=== PATIENT | female | born 1930 | race Caucasian/White ===

== ENCOUNTER → 2016-09-30 12:13 | Emergency (ER) | payer BC, MEDICARE ==
[~2016-09-30 12:13] MED LIST: PPD test dose* 5 TU/0.1 ML TEST (*USE PPD ORDER SET*) ONE
== END | disposition home or self-care (01) ==
LOC: OHEAST 12:13
DX: Z11.1 Encounter for screening for respiratory tuberculosis (principal)

== ENCOUNTER 2017-03-03 14:49 | Emergency (ER) | payer MEDICARE, BC ==
[2017-03-03] MEDS ORDERED: Azithromycin TAB* 250 MG PO ONE (16:59)
--- NOTE | 2017-03-03 17:02 | RAD ---
Indication: Cough, rhonchi. 2 views of the chest including dual energy PA views demonstrates no mediastinal shift. Heart is of normal size and configuration. Lung clemens demonstrate no pleural fluid, pneumonia or pneumothorax. When compared to previous exam of February 03, 2012 no significant change is noted. IMPRESSION: Cardiomegaly. Pectus excavatum deformity. No pneumonia is noted.
[2017-03-03] MEDS ORDERED: predniSONE TAB* 20 MG PO ONE (17:11)
[2017-03-03] MEDS ORDERED: guaiFENesin LIQ* 100 MG/5 ML UDC PO ONE (17:19)
[2017-03-03 17:21] VITALS: BP 162/78
--- NOTE | 2017-03-03 17:47 | UC ---
Ren Farrell Natalie, scribed for Washington Barrera MD on 03/03/17 at 1745 . Respiratory Complaint HPI - HPI Summary HPI Summary: The pt is an 87 y/o F presenting to c/o nonproductive cough starting intermittently three days ago. The pt states, I never know when Im going to cough throughout the day and night. When she isnt coughing, she feels slightly better, but still lethargic as if she has URI. The pain is rated 6/10. Pt additionally c/o SOB, small ear ache, nasal drainage. Pt denies fever, nasal congestion, and increased lower extremity edema. She doesnt have hx of asthma. - History of Current Complaint Chief Complaint: UCRespiratory Stated Complaint: COUGH Time Seen by Provider: 03/03/17 15:52 Hx Obtained From: Patient Onset/Duration: Lasting Days - starting three days ago, Still Present Timing: Intermittent Episodes Severity Initially: Moderate Severity Currently: Moderate Pain Intensity: 6 Pain Scale Used: 0-10 Numeric Character: Cough: Nonproductive Aggravating Factors: Nothing Alleviating Factors: Nothing Associated Signs And Symptoms: Negative: Fever, Nasal Congestion - Allergies/Home Medications Allergies/Adverse Reactions: Allergies Allergy/AdvReac Type Severity Reaction Status Date / Time Penicillins [PCN] AdvReac Mild Itching Verified 03/03/17 15:12 Home Medications: Home Medications Fluoxetine HCl [Prozac] 03/03/17 [History] PMH/Surg Hx/FS Hx/Imm Hx Cardiovascular History: Hypertension Other History Of: Negative For: Anticoagulant Therapy - Surgical History Surgical History: Yes Surgery Procedure, Year, and Place: hernia repair, tonsillectomy, mastectomy - Family History Known Family History: Positive: Hypertension Negative: Cardiac Disease, Diabetes - Social History Alcohol Use: None Substance Use Type: None Smoking Status (MU): Never Smoked Tobacco Review of Systems Constitutional: Fatigue, Other - NEGATIVE: fever ENT: Ear Ache, Nasal Discharge, Other - NEGATIVE: nasal congestion Respiratory: Shortness Of Breath Musculoskeletal: Other: - NEGATIVE: increased LE edema All Other Systems Reviewed And Are Negative: Yes Physical Exam Triage Information Reviewed: Yes Appearance: Well-Appearing, No Pain Distress Vital Signs: Initial Vital Signs Temp 97.8 F 03/03/17 15:12 Pulse 76 03/03/17 15:12 Resp 16 03/03/17 15:12 BP 158/83 03/03/17 15:12 Pulse Ox 96 03/03/17 15:12 Vital Signs Reviewed: Yes Eye Exam: Normal ENT: Positive: Normal ENT inspection Neck: Positive: Supple, Nontender Respiratory: Positive: Other: - breath sounds present, rhonchi bilaterally Cardiovascular: Positive: RRR Abdomen Description: Positive: Nontender, Soft Bowel Sounds: Positive: Present Musculoskeletal Exam: Normal Musculoskeletal: Positive: Strength Intact, ROM Intact Neurological: Positive: Other: - normal, sensory/motor intact, A&O x3 Psychological: Positive: Other: - affect/mood appropriate Diagnostic Evaluation - Laboratory O2 Sat by Pulse Oximetry: 96 - Radiology Xray Interpretation: No Acute Changes - Cardiomegaly. Pectus excavatum deformity. No pneumonia is noted. physician has reviewed this report. Radiology Interpretation Completed By: Radiologist Respiratory Course/Dx - Course Course Of Treatment: BP noted and advised to follow up with PCP. Medications reviewed. Allergies noted. WE DISCUSSED GETTING FURTHER EVAL IN ED. PATIENT DECLINES, WISHES TO BE TREATED OUT PATIENT; WILL GO TO ED IF WORSE. - Differential Dx/Diagnosis Provider Diagnoses: BRONCHITS. COUGH Discharge - Discharge Plan Condition: Stable Disposition: HOME Prescriptions: Azithromycin TAB* [Zithromax TAB (Z-FARHAT) 250 mg #6 tabs] 250 mg PO DAILY #4 tab Benzonatate CAP* [Tessalon 100 MG CAP*] 100 mg PO TID PRN #15 cap PRN Reason: Cough Guaifenesin 200 mg PO Q4H PRN #120 ml PRN Reason: Cough Patient Education Materials: Guaifenesin (By mouth), Acute Bronchitis (ED) Referrals: Froylan Barriga PA [Primary Care Provider] - Additional Instructions: FOLLOW UP WITH YOUR DOCTOR. GO TO THE EMERGENCY DEPARTMENT FOR ANY WORSENING OF YOUR CONDITION OR QUESTIONS OR CONCERNS. The documentation as recorded by the Ren chen Natalie accurately reflects the service I personally performed and the decisions made by me, Washington Barrera MD.
== END 2017-03-03 17:41 | disposition home or self-care (01) ==
LOC: UCEAST 14:49
DX: J40 Bronchitis, not specified as acute or chronic (principal); I10 Essential (primary) hypertension
CPT/HCPCS: 71046; 99212; A9270-GY; G0463; J7512

== ENCOUNTER 2017-07-02 12:56 | Emergency (ER) | payer MEDICARE, BC ==
[2017-07-02 14:31] VITALS: BP 157/77
--- NOTE | 2017-07-02 15:01 | RAD ---
HISTORY: Left knee injury COMPARISONS: None VIEWS: 4, Frontal, lateral, axial, and oblique views of the left knee FINDINGS: BONE DENSITY: There is diffuse osteopenia. BONES: There is no displaced fracture. 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 There is no suprapatellar joint effusion or lipohemarthrosis. ALIGNMENT: There is no dislocation. SOFT TISSUES: Unremarkable. OTHER FINDINGS: None. IMPRESSION: 1. OSTEOPENIA. 2. OSTEOARTHRITIS. 3. NO ACUTE OSSEOUS INJURY. IF SYMPTOMS PERSIST, RECOMMEND REPEAT IMAGING
--- NOTE | 2017-07-02 17:25 | UC ---
Lower Extremity/Ankle HPI - HPI Summary HPI Summary: Patient is an 87-year-old female presenting to the with chief complaint of left knee pain. She states she does a recumbent bike 3 times weekly and has for years without any pain. She states her [place] snf recently increased this to 4 times weekly and her left knee began to hurt. She endorses some left knee swelling which radiates down into the left lower extremity and ankle. She has been taking Aleve twice daily for the past 4-5 days which improves her symptoms. She is not used to compression hose, ice. She denies any other pain or symptoms. Denies any nausea or tingling. Denies any ecchymosis. - History of Current Complaint Chief Complaint: UCLowerExtremity Stated Complaint: LEFT KNEE INJURY Time Seen by Provider: 07/02/17 14:58 Hx Obtained From: Patient ?: No Onset/Duration: Sudden Onset Severity Initially: Mild Severity Currently: Mild Pain Intensity: 0 Pain Scale Used: 0-10 Numeric Aggravating Factor(s): Standing, Ambulation Alleviating Factor(s): Rest, Elevation Able to Bear Weight: Yes - Risk Factors Gout Risk Factors: Age Over 40 Septic Arthritis Risk Factor: Negative - Allergies/Home Medications Allergies/Adverse Reactions: Allergies Allergy/AdvReac Type Severity Reaction Status Date / Time Penicillins Allergy Itching Verified 07/02/17 14:20 PMH/Surg Hx/FS Hx/Imm Hx Previously Healthy: Yes Other History Of: Negative For: Anticoagulant Therapy - Surgical History Surgical History: Yes Surgery Procedure, Year, and Place: hernia repair, tonsillectomy, mastectomy - Family History Known Family History: Positive: Hypertension Negative: Cardiac Disease, Diabetes - Social History Occupation: Unemployed Lives: [facility] Alcohol Use: None Substance Use Type: None Smoking Status (MU): Never Smoked Tobacco Review of Systems Constitutional: Negative Skin: Negative Respiratory: Negative Cardiovascular: Negative Motor: Decreased ROM Neurovascular: Negative Musculoskeletal: Arthralgia - knee pain Neurological: Negative Psychological: Negative Is Patient Immunocompromised?: No All Other Systems Reviewed And Are Negative: Yes Physical Exam Triage Information Reviewed: Yes Appearance: Well-Appearing, No Pain Distress, Well-Nourished Vital Signs: Initial Vital Signs Temp 98.8 F 07/02/17 14:22 Pulse 63 07/02/17 14:22 Resp 18 07/02/17 14:22 BP 157/77 07/02/17 14:22 Pulse Ox 96 07/02/17 14:22 Vital Signs Reviewed: Yes Eye Exam: Normal Eyes: Positive: Conjunctiva Clear Neck exam: Normal Neck: Positive: Supple, No Lymphadenopathy Respiratory Exam: Normal Respiratory: Positive: Chest non-tender, Lungs clear Musculoskeletal: Positive: ROM Limited @ - left knee pain Neurological Exam: Normal Neurological: Positive: Alert Psychological: Positive: Normal Response To Family Skin Exam: Normal Lower Extremity Course/Dx - Course Course Of Treatment: Patient is evaluated for left knee pain. Left knee appears slightly swollen on physical exam area there is also swelling into the ipsilateral foot, she states which has significantly improved since yesterday. X-ray obtained of the knee which shows osteoarthritis with no other additional findings. I have encouraged her to take Aleve twice daily, ice to the area and apply compression hose. She will follow-up with her PCP and her orthopedic surgeon at [facility] for further management and possible PT. She is okay with this plan at discharge. - Differential Dx/Diagnosis Provider Diagnoses: Left knee Pain Discharge - Sign-Out/Discharge Documenting (check all that apply): Discharge/Admit/Transfer - Discharge Plan Condition: Stable Disposition: HOME Patient Education Materials: Knee Pain (ED), Swollen Joint (ED) Referrals: Froylan Barriga PA [Primary Care Provider] - Additional Instructions: Please follow up with orthopedics/PCP to assess if you need physical therapy Do not use the knee for any exercises at this time until the knee begins to feel better However, continue to move about the knee gently to prevent stiffening Compression hose may help with swelling Aleve twice daily Ice to the knee may help with discomfort - Billing Disposition and Condition Condition: STABLE Disposition: HOME
== END 2017-07-02 16:14 | disposition home or self-care (01) ==
LOC: UCEAST 12:56
DX: M25.562 Pain in left knee (principal); Z88.0 Allergy status to penicillin; M25.462 Effusion, left knee; M79.89 Other specified soft tissue disorders
CPT/HCPCS: 99211; G0463

== ENCOUNTER 2018-01-12 06:37 | Observation (INO) | payer MEDICARE, BC ==
--- NOTE | 2018-01-07 22:48 | HP ---
[facility] HISTORY AND PHYSICAL: DATE OF ADMISSION: 01/12/18 ATTENDING SURGEON: Dr. Ari Howard.* (DICTATED BY SURENDRA WHITAKER) CHIEF COMPLAINT: Appendiceal neoplasm. HISTORY OF PRESENT ILLNESS: This is an 87-year-old female, who is a poor historian, and reports "not feeling herself" since June of this year. She specifically has complaints of lower abdominal pain that she states is ongoing and does not seem to be related to eating or defecation. She denies any nausea , vomiting, anorexia, or weight loss. She did have a prior history of constipation for which she was taking MiraLAX. However, in the last 6 to 8 months, she has noted more problems with incontinence and significant production of mucus in her stools. She is mostly incontinent in the sense that when she feels that she might just be passing gas that she is actually passing some loose or mucousy stool. She denies blood per rectum. She underwent initial ultrasound of the pelvis through her PCP office. This showed a tubular structure in the midline that was not related to the adnexa. A noncontrast CT followed, which was done on 12/09/17, showing what appeared to possibly be a mucocele of the appendix versus a mucinous neoplasm. Dr. Howard had presented her case at tumor board. Also, of concern, on the 12/09/17 CT, was thickening of the omentum as well as the duodenum. Recommendation was made for repeat CT with IV and oral contrast and consideration for EGD and/or colonoscopy with GI. The patient's symptoms have remained much the same. She did undergo a repeat CT on 12/29/17 with IV and oral contrast. Though the report does not indicate so, Dr. 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 The prior concerns regarding the duodenum and omentum were no longer present on the most recent CT. Dr. Howard has met with the patient on 12/23/17 and again on 01/03/18. He has outlined for her the recommendations including the indications for surgery, the risks, benefits, and alternatives. He had noted on exam that she has a small umbilical hernia. The patient is in agreement to proceed as scheduled with laparoscopic appendectomy with repair of umbilical hernia. PAST MEDICAL HISTORY: Obstructive sleep apnea (on CPAP), depression, obesity, fibromyalgia (resolved). PAST SURGICAL HISTORY: She is status post right mastectomy in 1999 for breast cancer, which was also treated with postoperative chemotherapy and with no history of recurrence. Other previous surgeries include tonsillectomy remotely and a right inguinal hernia repair as a child. CURRENT MEDICATIONS: 1. Fluoxetine 10 mg once daily. 2. Fluticasone nasal spray p.r.n. for allergies (not currently using). 3. Azelastine nasal spray p.r.n. for allergies (not currently using). DRUG ALLERGIES: PENICILLIN (itching). FAMILY HISTORY: Negative for colorectal cancer, anesthesia problems, bleeding or clotting disorders. SOCIAL HISTORY: The patient is . She lives at [facility], which is assisted living. She is accompanied by a friend today, who does help her with medical appointments, etc., as the patient is very forgetful. The patient denies use of tobacco, drinks alcohol rarely and denies any other recreational drug use. REVIEW OF SYSTEMS: General: No recent constitutional symptoms or acute illnesses other than described above. The patient's weight has remained stable. HEENT: She does note some decreased visual acuity in recent years. No other problems reported. Cardiovascular: No chest pain, palpitations, history of heart murmur, or hypertension. Respiratory: No history of asthma, chronic cough, or shortness of breath. GI: As above per HPI. She has undergone colonoscopy in the past, but she cannot recall when the last study was done. She believes it was normal. : No problems reported. She apparently has a pessary in place at least by CT report. Endocrine: No diabetes or thyroid dysfunction. She is obese. Neuro/Psych: She is treated for depression, though feels unsure whether she should be taking the current fluoxetine. She is fairly forgetful. PHYSICAL EXAMINATION GENERAL: Well-nourished, obese female, in no acute distress. VITAL SIGNS: Height 63 inches, weight 197 pounds. Blood pressure 136/82, pulse 74, respirations 16. HEENT: Pupils are equal, round, and reactive. EOMs intact. No conjunctival pallor. Oropharynx: Teeth in fair repair with some missing teeth. NECK: No lymphadenopathy, thyromegaly, or masses. LUNGS: Clear to auscultation. No rales or wheezes. HEART: Regular rate and rhythm. No murmur noted. BREASTS: Not examined, though right chest wall was briefly examined with no evidence of recurrent disease. ABDOMEN: Obese, soft. Mild tenderness particularly in the lower abdomen, but no masses or guarding. Well-healed right inguinal scar from prior herniorrhaphy. GENITALIA: Otherwise not done. RECTAL: Otherwise not done. BACK: No spinous process or CVA tenderness. EXTREMITIES: 1 to 2+ nonpitting edema. NEUROLOGICAL: Grossly intact other than poor historian and frequent memory lapses. SKIN: Warm and dry. No suspicious rashes or lesions noted. IMPRESSION: Appendiceal neoplasm; umbilical hernia. PLAN: Laparoscopic appendectomy with repair of umbilical hernia. SURENDRA WHITAKER [id number]/[facility] #: [id number] [facility]
[~2018-01-12 06:37] MED LIST changes: +Buffered Lidocaine 0.9% SYRIN* 5 ML/SYR SYRINGE INTRADERM ONE; +Dexamethasone IV* 4 MG/ML 1 ML (4 MG) IV SLOW PU ONE; +Famotidine IV* 10 MG/ML 2 ML (20 mg) IV ONE; -PPD test dose* 5 TU/0.1 ML TEST (*USE PPD ORDER SET*) ONE
[2018-01-12] MEDS ORDERED: Heparin VIAL(*) 5000 UNITS/ML VIAL (FIVE THOUSAND) ONE (06:59)
[2018-01-12] MEDS ORDERED: Famotidine IV* 10 MG/ML 2 ML (20 mg) ONE (06:59)
[2018-01-12] MEDS ORDERED: Clindamycin 900 MG/D5W BAG(*) 900 MG/50 ML BAG IVPB ONE (06:59)
[2018-01-12] MEDS ORDERED: Dexamethasone IV* 4 MG/ML 1 ML (4 MG) ONE (06:59)
[2018-01-12] MEDS ORDERED: Gentamicin ADULT (*) 250 MG in NS 0.9% 100 ML* 100 ML IVPB ONE (07:00)
[2018-01-12] MEDS ORDERED: Rocuronium* 10 MG/ML VIAL ONE (07:05)
[2018-01-12] MEDS ORDERED: Propofol* 10 MG/ML 20 ML BTL ONE (07:05)
[2018-01-12] MEDS ORDERED: Lidocaine 2% PF * 5 ML VIAL ONE (07:05)
[2018-01-12] MEDS ORDERED: fentaNYL* 50 MCG/ML 2 ML VIAL (100 MCG VIAL) ONE ×5 (07:05→11:40)
[2018-01-12] MEDS ORDERED: Bupivacaine 0.25% EPI 200,000* 30 ML SDV ONE (07:13)
[2018-01-12] MEDS ORDERED: Ketorolac INJ* 30 MG/ML 1 ML VIAL IV PRN (07:25)
[2018-01-12] MEDS ORDERED: oxyCODONE/Acetamin 5/325 MG* TAB PO PRN (07:25)
[2018-01-12] MEDS ORDERED: DiMENhydriNATE IV* 50 MG/ML VIAL IV PUSH PRN (07:25)
[2018-01-12] MEDS ORDERED: Naloxone* 0.4 MG/ML 1 ML VIAL IV PRN (07:25)
[2018-01-12] MEDS ORDERED: HYDROcodone/ACETAMIN 5-325 MG* 1 TAB PO PRN ×2 (07:25→11:11)
[2018-01-12] MEDS ORDERED: EPHEDrine (Pressors)* 50 MG/ML VIAL ONE (07:52)
[2018-01-12] MEDS ORDERED: Ondansetron INJ* 2 MG/ML VIAL ONE (10:14)
[2018-01-12] MEDS ORDERED: Glycopyrrolate IV* 0.2 MG/ML 1 ML VIAL ONE (10:17)
[2018-01-12] MEDS ORDERED: Neostigmine Methylsulfate* 2 MG/2 ML SYRINGE ONE (10:17)
--- NOTE | 2018-01-12 10:49 | OP ---
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
[2018-01-12] MEDS ORDERED: Acetaminophen TAB* 325 MG PO PRN (11:10)
[2018-01-12] MEDS ORDERED: Morphine VIAL* 4 MG/ML VIAL (1 ml vial) IV PRN (11:12)
[2018-01-12] MEDS ORDERED: Ketorolac INJ* 30 MG/ML 1 ML VIAL ONE (11:14)
[2018-01-12] MEDS: fentaNYL* 50 MCG/ML 2 ML VIAL (100 MCG VIAL) IV PRN ×4 (11:16→11:38)
[2018-01-12] MEDS ORDERED: oxyCODONE/Acetamin 5/325 MG* TAB ONE (11:29)
[2018-01-12] MEDS ORDERED: DiMENhydriNATE IV* 50 MG/ML VIAL ONE (12:34)
--- NOTE | 2018-01-13 09:10 | OP ---
CC: [facility]; Dr. Bailon at [facility] OPERATIVE REPORT: DATE OF OPERATION: 01/12/18 DATE OF : 32 SURGEON: Ari Howard MD. ASSISTANTS: JAMESON Narayan and SURENDRA León. ANESTHESIOLOGIST: Dr. Nunez. ANESTHESIA: General. PRE-OP DIAGNOSES: Appendiceal neoplasm and umbilical hernia. POST-OP DIAGNOSES: Appendiceal neoplasm and umbilical hernia. OPERATIVE PROCEDURE: Diagnostic laparoscopy, mini laparotomy, and appendectomy with en bloc resectio n of a portion of small bowel and sigmoid colon, and primary umbilical hernia repair. FLUIDS: 1900 cc of crystalloid fluid given. ESTIMATED BLOOD LOSS: Less than 100 cc. SPECIMEN: Appendix with en bloc portion of small bowel and sigmoid colon. SUTURE KERN: Staple line at the small bowel. DRAINS: A #10 NIMESH drain. DESCRIPTION OF PROCEDURE: The patient was identified in the preoperative area. She was brought to [facility] operating room, placed on the operating room table in supine position. Preoperative antibiotics we re given. Sequential devices were placed on bilateral lower extremities. General anesthesia was ind uced. The patient's abdomen was prepped and draped in the standard surgical fashion and a time-out w as performed. An umbilical incision was made. This was deepened down to the anterior fascia and right to the area of the umbilical area. We entered into the abdomen through this hernia and placed a 12-mm trocar. L aparoscope was inserted through this and there was no evidence . Additional trocars were then placed in the following position, a 5 mm in the suprapubic area and 5 mm in the left lower quadrant. Table was positioned to Trendelenburg. We identified the cecum and identified the normal appearing b ase of appendix extending towards a tip of appendix with bulbous tip. This would adhere to multiple structures including small bowel, approximately the mid ileum and also to sigmoid colon both proximal ly and distally and also to right fimbria. With sharp and blunt dissection, we were able to free off the ovary and fimbria from the right off the lesion. We took care not to handle the tip of the appe ndix during this case. We took additional adhesions to the retroperitoneum and we were able to draw the appendix more superiorly from its area in the deep pelvis. I was also then able to sharply free it off the distal sigmoid at approximately the rectosigmoid area. This was mostly through pericoloni c fat that was cauterized as needed. At this point, we were able to pull the appendix up towards the midline. It was, as I said, attached to the small bowel and the sigmoid colon. I could not find a plane in this, but felt more confident handling this externally. Review of the abdomen showed normal appearing liver. There were omental studdings or scarring almost . A frozen section was taken off the omentum using LigaSure device, we sent it down to pathology who commented that it appeared to be just chronic inflammation. No other lesions were identified and ne xt, we placed a #10 NIMESH drain into the abdomen and brought it out through the left lateral most port s ite. The base of the appendix was stapled with a 45 mm [place] JAZMÍN stapling device after making a window at this and taking the mesentery of the appendix with a LigaSure device. This then allowed the appe ndix, which was now only connected to the sigmoid colon and small bowel to be manipulated around the abdomen and at this point, we increased the lower abdominal incision in a transverse fashion and inci sed the fascia and entered into the abdomen through all the layers. We then brought out the specimen and reviewed the lesion itself. The tip of the appendix appeared soft. It is not clear if this was a perforated appendix, it was just chronic inflammation or if this had been something else. It was attached to the adjacent structures as described without ability to make a plane at this area. I fel t it more prudent to resect the portion of small bowel since this patient's symptoms were not specifi payton appendicitis-type symptoms and my feeling was that this could be something else. We cleared of f some of the creeping mesentery from the small bowel and we were able to place a 45-mm [place] JAZMÍN stapl ing device across the small bowel in a transverse fashion taking care not to narrow the lumen. A may k suture was placed at this to sebas it. Next, we did a similar resection staple line on the sigmoid colon after clearing up some of the niall-mesenteric fat as it also came up toward the area of where t he appendix and sigmoid colon intimately were connected. My feeling is that these appeared more like fistula on examination and for this reason, I resected these 2 structures. Once this staple line th rough the sigmoid colon was placed, we were able to pass the specimen off. It was opened up on the b ack table. Lumen of the appendix appeared somewhat normal. It was mostly obliterated in the proxima l portion and there appeared to be possible fistula openings within the mucosa extending towards the surface of the appendix. It was then placed in formalin and sent down for pathology. We then irrigat ed the staple lines, dunked the corners of the staple lines with 3-0 silk sutures. Review of both th e colon and the small bowel appeared that their lumens were wide open and that they did not show any evidence of ischemia at the staple lines. These were dropped back into the abdomen. Next, the anter ior fascia was reapproximated with interrupted 0 Vicryl sutures in a [id number] fashion. I then irrigated the wound and reapproximated it with the skin rayna. It should be noted that I did ensu re the position of the NIMESH drain prior to closure of this lower transverse incision. Attention was then turned towards the umbilicus. The trocar was removed at this site. We dissected down on to the umbilical hernia, which once it was cleared off and the fascial edges cleared, we reap proximated with interrupted 0 Prolene sutures. The hernia itself was approximately a 1.5 cm defect. The umbilical skin was tacked down with 2-0 Vicryl suture and skin rayna were placed at this site as well. A 3-0 Prolene suture was placed at the left lower quadrant port site to keep the NIMESH drain i n place. The patient tolerated the procedure well. Sterile dressing was applied and she was transfe rred to the PACU in stable condition. [id number]/[facility] #: [id number]
[2018-01-13 09:48] VITALS: BP 122/53
== END 2018-01-13 12:00 | disposition home or self-care (01) ==
LOC: OR 06:37 → SSU 11:12
PROVIDERS: ADMIT Surgery; ATTEND Surgery
DX: D37.3 Neoplasm of uncertain behavior of appendix (principal); K42.9 Umbilical hernia without obstruction or gangrene; E66.9 Obesity, unspecified; G47.33 Obstructive sleep apnea (adult) (pediatric); Z85.3 Personal history of malignant neoplasm of breast; Z88.0 Allergy status to penicillin
CPT/HCPCS: 88305; 88331; 88332; 96374; 96375; 96376; A9270-GY; G0378; G8978-GP-CI; G8979-GP-CI; G8980-GP-CI; J1100; J1240; J1580; J1644; J1885; J2405; J2704; J3010

== ENCOUNTER 2018-06-22 06:07 | Inpatient (IN) | payer MEDICARE, BC ==
--- NOTE | 2018-06-17 16:15 | HP ---
CONTINUATION ADDENDUM NOW INCLUDED ON THIS REPORT CC: Dr. Pita Bailon * PREOPERATIVE HISTORY AND PHYSICAL: DATE OF ADMISSION/SURGERY: 06/22/18 This patient is scheduled for same-day surgery with possible overnight extension by Dr. Howard on 06/22/18. DATE OF PREOPERATIVE HISTORY AND PHYSICAL EXAMINATION: 06/17/18. ATTENDING SURGEON: Dr. Ari Howard * (dictated by Pita Narayan, JAMESON). CHIEF COMPLAINT: Lower abdominal bulge. HISTORY OF PRESENT ILLNESS: The patient is an 88-year-old female who [facility] to [facility] for evaluation by Dr. Howard for swelling at the lower abdomen. The patient is known to Dr. Howard from 01/12/18 when she underwent diagnostic laparoscopy, mini laparotomy with appendectomy with en bloc resection of portion of small bowel and sigmoid colon, and primary umbilical hernia repair. She noticed a bulge in the lower abdomen. She saw Dr. Howard in our office on 05/30/18 with concerns that the bulge was getting bigger. Today, she denies any significant abdominal pain, she states that she is having regular bowel movements and has not seen any blood in the stool and she denies any painful urination. Her main complaint is that she feels less mobile because of the bulge. She also describes having a bulge between her vagina and anus, and Dr. Howard examined that area and could not appreciate the bulge that the patient described. CONTINUATION ADDENDUM: HISTORY OF PRESENT ILLNESS: The patient describes having a bulge between her vagina and anus and when Dr. Howard examined her, he could not appreciate the bulge that the patient described. Dr. Howard has recommended open ventral hernia repair with mesh as a same-day surgery procedure, he described the nature of the surgical procedure, the rationale for the procedure, the relevant risks and benefits, and the use of mesh; today, I reviewed the expected postoperative care and recovery with the patient and her friend that accompanied her to the visit; they have had a chance to ask questions and stated that they understand the information and are satisfied with the answers given to their questions. The patient will sign surgical consent on the day of surgery. PAST MEDICAL HISTORY: Significant for right breast cancer in 1999, followed by right mastectomy and chemotherapy, she has no history of recurrence; obstructive sleep apnea, on CPAP; depression; obesity; headaches related to sinusitis; and fibromyalgia. PAST SURGICAL HISTORY: Diagnostic laparoscopy with mini laparotomy and appendectomy with en bloc resection of portion of the small bowel and sigmoid colon and primary umbilical hernia repair by Dr. Howard, 01/12/18; right mastectomy in 1999 for breast cancer; tonsillectomy; and right inguinal hernia repair in childhood. CURRENT MEDICATIONS: 1. Atorvastatin 20 mg p.o. daily. 2. Fluoxetine 10 mg p.o. daily. 3. Fluticasone nasal spray p.r.n. 4. MiraLAX 17 g every other day. ALLERGIES: PENICILLIN causes itching. FAMILY HISTORY: Negative for anesthesia problems, bleeding tendencies, or clotting disorders. Mother with a history of breast cancer. Father with a history of heart disease and hypertension. SOCIAL HISTORY: She is and lives at [facility], which is assisted living. She is accompanied by a friend today, who helps her with medical appointments, etc., as the patient is very forgetful. The patient denies use of tobacco, rarely drinks alcohol and denies any other substance use. REVIEW OF SYSTEMS: Constitutional: No fevers or chills. Endocrine: No diabetes or thyroid disease. Hematologic: No easy bruising or bleeding. No history of blood transfusions. Respiratory: No history of asthma. No chronic cough or shortness of breath. Cardiovascular: No chest pain or palpitations. No history of heart murmur or myocardial infarction. Gastrointestinal: No nausea or vomiting. Her stools vacillate between diarrhea and constipation, which is relieved with MiraLAX. No blood in the stool. Genitourinary: No painful urination. She does wear an undergarment. She has had a pessary in place in the past. Musculoskeletal: She has pitting edema of the lower extremities. No skin ulcerations. She uses a cane for ambulation and balance. Neurologic: No current headache or blurred vision. No areas of focal weakness or numbness. PHYSICAL EXAMINATION GENERAL SURVEY: The patient is an 88-year-old obese female, in no acute distress. VITAL SIGNS: Height 63 inches, weight 195 pounds, body mass index 34.5. Blood pressure 144/84, pulse 76 and regular, respiratory rate 16, temperature 99.2 tympanic. HEENT: Benign. NECK: Supple. No cervical lymphadenopathy. LUNGS: Breath sounds bilaterally clear and equal. HEART: Regular rate and rhythm. No murmurs or rubs appreciated. ABDOMEN: Obese, soft. Obvious ventral hernia in the lower abdomen that is reducible when she is supine. No overlying skin changes after it is reduced. Well- healed surgical scars. No other obvious masses, but exam is limited by body habitus. PELVIC EXAM: Deferred. RECTAL EXAM: Deferred. EXTREMITIES: With 2+ pitting edema bilaterally. No skin ulcerations. NEUROLOGIC: Alert and oriented x3. She walks with a support of a cane and her gait is fairly steady. SKIN: Warm, dry, intact. IMPRESSION: Incisional ventral hernia. PLAN: Same-day surgery admission to Dr. Howard's service on 06/22/18 , for open ventral hernia repair with mesh. MILA NARAYAN, ANIMAL SERVICES OFFICER [id number]/[facility] #: [id number] [id number]/[facility] #: [id number] YOMI
--- NOTE | 2018-06-17 16:32 | HP ---
CC: Dr. Howard; Dr. Pita Bailon PREOPERATIVE HISTORY AND PHYSICAL: ADDENDUM: HISTORY OF PRESENT ILLNESS: The patient describes having a bulge between her vagina and anus and when Dr. Howard examined her, he could not appreciate the bulge that the patient described. Dr. Howard has recommended open ventral hernia repair with mesh as a same-day surgery procedure, he described the nature of the surgical procedure, the rationale for the procedure, the relevant risks and benefits, and the use of mesh; today, I reviewed the expected postoperative care and recovery with the patient and her friend that accompanied her to the visit; they have had a chance to ask questions and stated that they understand the information and are satisfied with the answers given to their questions. The patient will sign surgical consent on the day of surgery. PAST MEDICAL HISTORY: Significant for right breast cancer in 1999, followed by right mastectomy and chemotherapy, she has no history of recurrence; obstructive sleep apnea, on CPAP; depression; obesity; headaches related to sinusitis; and fibromyalgia. PAST SURGICAL HISTORY: Diagnostic laparoscopy with mini laparotomy and appendectomy with en bloc resection of portion of the small bowel and sigmoid colon and primary umbilical hernia repair by Dr. Howard, 01/12/18; right mastectomy in 1999 for breast cancer; tonsillectomy; and right inguinal hernia repair in childhood. CURRENT MEDICATIONS: 1. Atorvastatin 20 mg p.o. daily. 2. Fluoxetine 10 mg p.o. daily. 3. Fluticasone nasal spray p.r.n. 4. MiraLAX 17 g every other day. ALLERGIES: PENICILLIN causes itching. FAMILY HISTORY: Negative for anesthesia problems, bleeding tendencies, or clotting disorders. Mother with a history of breast cancer. Father with a history of heart disease and hypertension. SOCIAL HISTORY: She is and lives at [facility], which is assisted living. She is accompanied by a friend today, who helps her with medical appointments, etc., as the patient is very forgetful. The patient denies use of tobacco, rarely drinks alcohol and denies any other substance use. REVIEW OF SYSTEMS: Constitutional: No fevers or chills. Endocrine: No diabetes or thyroid disease. Hematologic: No easy bruising or bleeding. No history of blood transfusions. Respiratory: No history of asthma. No chronic cough or shortness of breath. Cardiovascular: No chest pain or palpitations. No history of heart murmur or myocardial infarction. Gastrointestinal: No nausea or vomiting. Her stools vacillate between diarrhea and constipation, which is relieved with MiraLAX. No blood in the stool. Genitourinary: No painful urination. She does wear an undergarment. She has had a pessary in place in the past. Musculoskeletal: She has pitting edema of the lower extremities. No skin ulcerations. She uses a cane for ambulation and balance. Neurologic: No current headache or blurred vision. No areas of focal weakness or numbness. PHYSICAL EXAMINATION GENERAL SURVEY: The patient is an 88-year-old obese female, in no acute distress. VITAL SIGNS: Height 63 inches, weight 195 pounds, body mass index 34.5. Blood pressure 144/84, pulse 76 and regular, respiratory rate 16, temperature 99.2 tympanic. HEENT: Benign. NECK: Supple. No cervical lymphadenopathy. LUNGS: Breath sounds bilaterally clear and equal. HEART: Regular rate and rhythm. No murmurs or rubs appreciated. ABDOMEN: Obese, soft. Obvious ventral hernia in the lower abdomen that is reducible when she is supine. No overlying skin changes after it is reduced. Well- healed surgical scars. No other obvious masses, but exam is limited by body habitus. PELVIC EXAM: Deferred. RECTAL EXAM: Deferred. EXTREMITIES: With 2+ pitting edema bilaterally. No skin ulcerations. NEUROLOGIC: Alert and oriented x3. She walks with a support of a cane and her gait is fairly steady. SKIN: Warm, dry, intact. IMPRESSION: Incisional ventral hernia. PLAN: Same-day surgery admission to Dr. Howard's service on 06/22/18 , for open ventral hernia repair with mesh. MILA REYES, CLEAR COAT SPRAYER [id number]/[facility] #: [id number] YOMI
[~2018-06-22 06:07] MED LIST changes: +Acetaminophen TAB* 325 MG ONE; +Acetaminophen TAB* 325 MG PO ONE; -Buffered Lidocaine 0.9% SYRIN* 5 ML/SYR SYRINGE INTRADERM ONE; +Buffered Lidocaine 1% SYRIN* 1 ML/SYRINGE INTRADERM ONE; +Clindamycin 900 MG IVPREMIX(* 900 MG/50 ML SDV IV ONE; -Dexamethasone IV* 4 MG/ML 1 ML (4 MG) IV SLOW PU ONE; -Famotidine IV* 10 MG/ML 2 ML (20 mg) IV ONE; +Heparin VIAL(*) 5000 UNITS/ML VIAL (FIVE THOUSAND) ONE; +Lactated Ringers 1000 ML Bag* 1,000 ML IV SCH
[2018-06-22] MEDS ORDERED: Lidocaine 1% INJ* 10 MG/ML 30 ML SDV ONE (06:51)
[2018-06-22] MEDS ORDERED: Bupivacaine 0.25% EPI 200,000* 30 ML SDV ONE (06:51)
[2018-06-22] MEDS ORDERED: Midazolam* 1 MG/ML 2 ML VIAL (2 MG) ONE (07:42)
[2018-06-22] MEDS ORDERED: fentaNYL* 50 MCG/ML 2 ML VIAL (100 MCG VIAL) ONE ×2 (07:42→10:25)
[2018-06-22] MEDS ORDERED: Ondansetron INJ* 2 MG/ML VIAL ONE (07:43)
[2018-06-22] MEDS ORDERED: Lidocaine 2% PF * 5 ML VIAL ONE (07:43)
[2018-06-22] MEDS ORDERED: Propofol* 10 MG/ML 20 ML BTL ONE (07:43)
[2018-06-22] MEDS ORDERED: Famotidine IV* 10 MG/ML 2 ML (20 mg) ONE (08:20)
[2018-06-22] MEDS ORDERED: Cisatracurium* 2 MG/ML MDV 5 ML ONE (08:39)
[2018-06-22] MEDS ORDERED: Succinylcholine* 20 MG/ML 10 ML VIAL ONE (08:39)
[2018-06-22] MEDS ORDERED: HYDROcodone/ACETAMIN 5-325 MG* 1 TAB PO PRN (09:07)
[2018-06-22] MEDS ORDERED: fentaNYL* 50 MCG/ML 2 ML VIAL (100 MCG VIAL) IV PRN (09:07)
[2018-06-22] MEDS ORDERED: Ondansetron INJ* 2 MG/ML VIAL IV PRN ×2 (09:07→11:46)
[2018-06-22] MEDS ORDERED: DiMENhydriNATE IV* 50 MG/ML VIAL IV PUSH PRN (09:07)
[2018-06-22] MEDS ORDERED: diPHENhydraMINE IV* 50 MG/ML 1 ml VIAL (BENADRYL) IV PRN (09:07)
[2018-06-22] MEDS ORDERED: Naloxone* 0.4 MG/ML 1 ML VIAL IV PRN (09:07)
[2018-06-22] MEDS ORDERED: Dexamethasone IV* 4 MG/ML 1 ML (4 MG) ONE (09:31)
--- NOTE | 2018-06-22 11:30 | OP ---
Operative Report - Blank - Operative Report Date of Operation: 06/22/18 Note: Brief Operative Note Preop Dx: Ventral incisional hernia Postop Dx: same Procedure: Open repair ventral incisional hernia w/ mesh Anesthesia: GET Surgeon: Anita Cook Italian Style Food: JAMESON Narayan; SURENDRA Novak; FELIZ Wallace Fluids: 1600 ml RL EBL: 50 ml Specimen: hernia sac Drains: one NIMESH Findings: dictated
[2018-06-22] MEDS ORDERED: Acetaminophen TAB* 325 MG PO PRN (11:37)
[2018-06-22] MEDS ORDERED: Polyethylene Glycol 3350* 17 GM PACKET PO PRN (11:37)
[2018-06-22] MEDS ORDERED: Morphine INJ* 2 MG/ML 1 ML SYRINGE (TWO MG - NEW SYRINGE VERSION) IV PRN ×2 (11:43)
[2018-06-22] MEDS ORDERED: HYDROcodone/ACETAMIN 5-325 MG* 1 TAB ONE (12:28)
[2018-06-22] MEDS: Lactated Ringers 1000 ML Bag* 1,000 ML IV SCH (13:17)
--- NOTE | 2018-06-22 19:59 | OP ---
CC: Dr. Pita Bailon * DATE OF OPERATION: 06/22/18 - ROOM #335 DATE OF : 32 SURGEON: Ari Howard MD. ASSISTANTS: 1. Maria Elena Narayan NP. 2. SURENDRA León. ANESTHESIOLOGIST: Dr. Sultana. ANESTHESIA: General. PRE-OP DIAGNOSIS: Incisional hernia. POST-OP DIAGNOSIS: Incisional hernia. OPERATIVE PROCEDURE: Incisional hernia repair with mesh. ESTIMATED BLOOD LOSS: 50 cc. FLUIDS: 1600 cc of lactated Ringer's given. SPECIMEN: Hernia sac. DRAINS: A #7 NIMESH drain left in the subcutaneous space. DESCRIPTION OF PROCEDURE: The patient was identified in the preoperative area. She was marked appropriately. Consent was signed. She was brought to the operating room and placed on the operating table in supine position. Preoperative antibiotics were given. Sequential devices were placed on bilateral lower extremities. General anesthesia was induced. A Vieyra catheter inserted and the patient's lower abdomen groin hair was clipped and the patient' s abdomen was then prepped and draped in standard surgical fashion and a time- out was performed. I addressed the known hernia. The initial incision was a transverse incision at the skin, but an up and down incision through the abdomen and today I made an up and down incision as well through the lower midline. This was deepened down through the subcutaneous fat until we came across the hernia sac. This was cleared off medially, laterally, and also superiorly. It was the inferior aspect that gave us a little more difficulty. We did enter into the sac and free fluid was forthcoming and at this point we were able to enter into the abdomen and see that there was normal appearing bowel without free fluid in the abdomen. The dissection was carried down along the anterior fascia on the right side towards the pubic symphysis. We entered another portion within the sac that I was concerned had been the bladder. Serous fluid was forthcoming that was thought to be possibly urine as we were very low down and my feeling was that the hernia contents may have been the bladder. As we dissected this free, I did place my finger into what we had felt was the bladder and dissected this off the subcutaneous tissue and this did turn supervisor to be an additional sac and peritoneum extending inferiorly. This was dissected free and passed off as specimen. We had already dissected a fair portion of the superior aspect of the sac. The defect was then cleared off and measured approximately 8 x 4 cm. Review of the bladder showed that we had not entered it or injured this. The inferior aspect of the defect was only 2 cm above the pubic symphysis. I thought we could close this primarily with an underlay mesh. At this point, we freed up the peritoneum from the rectus musculature on both sides and also superiorly and inferiorly to create a space that would encompass the mesh plus the retrorectus. We then closed the peritoneum with some posterior fascia with a running 0 Vicryl stitch. At some portions, we did pursestring a little bit to bring this together in a reasonable fashion. We irrigated and hemostasis was achieved and then a Bard 12 x 8 cm ventral mesh was then placed into the retrorectus space and tacked with SecureStrap throughout the pocket into the musculature and some of the anterior fascia depending on where the tack would grab to. Additional #1 Vicryl stitches were used at the 12 o'clock, 6 o'clock, 3 o'clock, and 9 o'clock position coming through the anterior fascia and picking up the ridge of the mesh. Again, the mesh was appropriately oriented with the absorbable surface posteriorly; however, this up against the closed peritoneum. Again, we irrigated, hemostasis was achieved, and then we reapproximated the anterior fascia with interrupted #1 Vicryl stitches in a [id number] fashion. A #7 NIMESH drain was then brought through a separate stab incision and the skin incision was reapproximated with skin rayna followed by sterile dressing. The patient tolerated the procedure well, was woken up and transferred to the PACU for planned admission to the hospital. [id number]/[facility] #: [id number] YOMI
[2018-06-22] MEDS: AZELASTINE 0.1% BOTH NARES SCH (21:12)
[2018-06-22] MEDS: FLUoxetine CAP* 10 MG PO SCH (21:53)
[2018-06-22] MEDS: Heparin VIAL(*) 5000 UNITS/ML VIAL (FIVE THOUSAND) SUBCUT SCH (21:54)
[2018-06-23] MEDS: Lactated Ringers 1000 ML Bag* 1,000 ML IV SCH (01:42)
[2018-06-23] MEDS: traMADol TAB* 50 MG PO PRN ×3 (01:44→16:30)
[2018-06-23] MEDS: Heparin VIAL(*) 5000 UNITS/ML VIAL (FIVE THOUSAND) SUBCUT SCH ×3 (06:11→22:09)
[2018-06-23] MEDS: AZELASTINE 0.1% BOTH NARES SCH ×2 (07:33→20:02)
[2018-06-23] MEDS: Fluticasone NASAL SPRAY 50MCG* 16 gm SPRAY BTL BOTH NARES SCH (07:33)
--- NOTE | 2018-06-23 13:16 | PN ---
Progress Note - Progress Note Date of Service: 06/23/18 Note: S: POD #1. Some confusion/forgetfulness (seems close to her baseline). Some pain when getting out of bed, but has only needed Tramadol x 1 thus far. Ambulated well. Mann po (no N/V. O: Vital Signs - 8 hr 06/23/18 06/23/18 06/23/18 07:25 08:00 09:48 Temperature 98.0 F Pulse Rate 66 Respiratory 16 18 18 Rate Blood Pressure 140/61 (mmHg) O2 Sat by Pulse 93 93 Oximetry 06/23/18 06/23/18 06/23/18 11:18 12:02 12:38 Temperature 98.0 F Pulse Rate 72 Respiratory 18 18 Rate Blood Pressure 170/65 140/60 (mmHg) O2 Sat by Pulse 98 Oximetry Intake and Output Last 24 Hours 06/21/18 06/22/18 06/23/18 06/24/18 06:59 06:59 06:59 06:59 Intake Total 3241 1264 Output Total 1600 60 Balance 1641 1204 Weight 197 lb Intake: IV Fluids 2571 584 LR 2571 584 Oral 670 680 Output: NIMESH #1 170 60 Urine 1430 Other: Estimated Void Large # Bowel Movements 0 # Voids 2 Gen: sitting up in chair, just finishing breakfast; NAD Heart: reg Lungs: clear Abd: NIMESH w/ serosang drainage; dressings dry (will change later); +BS; soft; incisional tenderness only (expected) A: s/p open repair incisional hernia w/ mesh, doing fairly well P: discussed w/ Dr. Howard; she will need help with managing her drain, which we would anticipate d/c'ing on Wednesday. She may be able to have some help from her friend as well as verbal prompts from the aides at [facility], but will need to stay until at least tomorrow until that is determined. Saline lock IV.
[2018-06-23] MEDS: FLUoxetine CAP* 10 MG PO SCH (22:09)
[2018-06-24 05:40] VITALS: BP 146/66
[2018-06-24] MEDS: Heparin VIAL(*) 5000 UNITS/ML VIAL (FIVE THOUSAND) SUBCUT SCH (06:16)
[2018-06-24] MEDS: AZELASTINE 0.1% BOTH NARES SCH (08:18)
[2018-06-24] MEDS: Fluticasone NASAL SPRAY 50MCG* 16 gm SPRAY BTL BOTH NARES SCH (08:18)
--- NOTE | 2018-06-24 09:48 | PN ---
<Rosas Wallace - Last Filed: 06/24/18 10:04> Progress Note - Progress Note Date of Service: 06/24/18 Note: S: pt has some confusion which seems to be her baseline per aide in the room with her. She has a small amount of incision site pain that increases when she moves in or out of bed. She has a heat pack on the incision site that is helping with her pain; she has not needed any tramadol so far today. She is able to stand on her own with little to no assistance. O: Selected Entries 06/23/18 06/23/18 06/24/18 07:25 20:16 04:48 Temperature 98.0 F 97.5 F 99.3 F Pulse Rate 66 70 63 Respiratory 16 20 18 Rate Blood Pressure 140/61 137/88 146/66 (mmHg) O2 Sat by Pulse 93 95 96 Oximetry Patient on Room Yes Yes Yes Air Intake & Output 06/22/18 06/23/18 06/24/18 06/25/18 06:59 06:59 06:59 06:59 Intake Total 3241 2044 Output Total 1600 1740 380 Balance 1641 304 -380 Weight 197 lb Intake: IV Fluids 2571 584 LR 2571 584 Oral 670 1460 Output: NIMESH #1 170 190 80 Urine 1430 1550 300 Other: Estimated Void Large Medium # Bowel Movements 0 0 # Voids 2 1 Exam: Gen: Sitting upright on edge of bed finishing breakfast, does not appear to be in any acute distress. Heart: She has normal S1/S2 heart sounds Lungs: clear and equal bilat without wheezes, rales, rhonchi. abd: Bandages over incision site are dry, there is tenderness over the incision site. + BS. NIMESH drain shows serosanguinous fluid. A: s/p incisional hernia repair with mesh; improving. P: Anticipate d/c this afternoon. Pt will need help from [facility] staff w/ NIMESH drain management over weekend; poss NIMESH drain removal on Tuesday 06/27 Continue to ambulate. <Az Novak - Last Filed: 06/24/18 13:09> Progress Note - Progress Note Note: Patient seen with PA student. Agree with student note, with the following clarifications: Patient is POD #2. Incision is clean and dry; no drainage on dressing; rayna intact; abd binder is riding high over her upper abd-> therefore, d/c'd. Patient will have help from her friend, Grant, who will be able to look in on her and help manage the drain ([facility] staff only able to provide verbal reminders and cues).
--- NOTE | 2018-06-24 21:06 | DS ---
CC: Dr. Bailon at [facility] * DISCHARGE SUMMARY: DATE OF ADMISSION: 06/22/18 DATE OF DISCHARGE: 06/24/18 ATTENDING SURGEON: Dr. Ari Howard.* (DICTATED BY SURENDRA WHITAKER) HOSPITAL COURSE: Please refer to admission history and physical and operative note for details. The patient was taken to the operating room on 06/22/18, at which time, she underwent open repair of a lower abdominal incisional hernia with mesh by Dr. Howard. Postoperative course was characterized by an expected amount of incisional pain and a moderate amount of serosanguineous drainage from the NIMESH drain. She has been afebrile and has had good GI function. She was kept an additional day for wound care and drain management, but was deemed stable for discharge on by Dr. Howard. She will return to [place] and has an appointment for followup with Dr. Howard on 06/27/18. Please see progress note from the same date in her electronic chart. She will resume her usual medications including Tylenol p.r.n. for pain. Instructions were given regarding wound care including NIMESH drain management. SURENDRA WHITAKER [id number]/[facility] #: [id number] [facility]
== END 2018-06-24 12:25 | DRG 355 ==
LOC: OR 06:07 → SSU 11:31
PROVIDERS: ADMIT Surgery; ATTEND Surgery
PROC: 0WUF0JZ Supplement Abdominal Wall with Synthetic Substitute, Open Approach (ICD-10-PCS; principal; 2018-06-22 08:00)
DX: K43.2 Incisional hernia without obstruction or gangrene (principal); E66.9 Obesity, unspecified; G47.33 Obstructive sleep apnea (adult) (pediatric); F32.9 Major depressive disorder, single episode, unspecified; I12.9 Hypertensive chronic kidney disease with stage 1 through stage 4 chronic kidney disease, or unspecified chronic kidney disease; J44.9 Chronic obstructive pulmonary disease, unspecified; N18.9 Chronic kidney disease, unspecified; M79.7 Fibromyalgia; R41.0 Disorientation, unspecified; Z68.34 Body mass index [BMI] 34.0-34.9, adult; Z90.49 Acquired absence of other specified parts of digestive tract; Z85.3 Personal history of malignant neoplasm of breast; Z92.21 Personal history of antineoplastic chemotherapy; Z90.11 Acquired absence of right breast and nipple; Z88.0 Allergy status to penicillin; Z80.3 Family history of malignant neoplasm of breast; Z82.49 Family history of ischemic heart disease and other diseases of the circulatory system
CPT/HCPCS: 87641; 88302; A9270-GY; C1776; C1781; J0330; J1100; J1644; J2250; J2405; J2704; J3010

== ENCOUNTER 2018-08-22 17:56 | Emergency (ER) | payer MEDICARE, BC ==
[2018-08-22 19:03] LABS: ABS Eosinophils 0.1 10^3/ul (0-0.6); ABS Lymphocytes 1.3 10^3/ul (1.0-4.8); ABS Monocytes 0.5 10^3/ul (0-0.8); ABS Neutrophils 4.8 10^3/ul (1.5-7.7); Hematocrit 35 % (35-47); Hemoglobin 11.5 g/dL (12.0-16.0); Lymphocyte % 19.7 %; Mean Corpuscular HGB Conc 33 g/dL (31-36); Mean Corpuscular Hemoglobin 32 pg (27-31); Mean Corpuscular Volume 97 fL (80-97); Mean Platelet Volume 8.9 fL (7.4-10.4); Platelet Count 210 10^3/uL (150-450); Red Blood Count 3.55 10^6 /uL (3.70-4.87); Red Cell Distribution Width 15 % (10-15); White Blood Count 6.7 10^3/uL (3.5-10.8)
[2018-08-22 19:07] LABS: INR 1.04 (0.82-1.09)
--- OUTSIDE RECORDS SUMMARY | 2018-08-22 19:17 | XMS REPORT | Continuity of Care Document ---
:1930 External Reference #:[id number] Author Name Janak, Ligia Care Team Providers Name Role Phone Pita Bailon MD Primary Care Physician Unavailable Payers Date Identification Numbers Payment Provider Subscriber Policy Number: [id number] Medicare Salud Peña PayID: [id number] [address] [place] [address] Policy Number: [id number] [facility] Salud Peña Group Number: [id number] [address] [address] Group Name: [place] [address] PayID: [id number] Problems Active Problems Provider Date Memory impairment Bethany Curry M.D. Onset: 06/18/2016 Unsteady gait Bethany Curry M.D. 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 ETOH Use Rarely consumes alcohol Tobacco Use Start: Unknown Patient has never smoked Smoking Status Reviewed: 07/28/18 Patient has never smoked Exercise Type/Frequency Exercises rarely Allergies, Adverse Reactions, Alerts Active Allergies Reaction Severity Comments Date Penicillin hands itchy 06/18/2016 Medications Active Medications SIG Qnty Indications Ordering Provider Date Fluoxetine HCL 1 po qam Venkat Jackson MD 10mg Capsules Fluticasone Propionate prn Rajni Cormier MD [place] 50mcg/Act Suspension Atorvastatin Calcium 1 po qd Venkat Jackson MD 20mg Tablets Miralax 17 gm every other Unknown [id number] Powder day mixed w/ 8 oz water/juice A & D Zinc Oxide apply daily as Unknown Cream needed Azelastine HCL (Nasal) 2 sprays each Unknown nostril once or 0.1% Solution twice a day for allergies Tramadol HCL 1 tablet by mouth Unknown 50mg Tablets every 6 hours as needed pain History Medications Clindamycin HCL 1 by mouth three times Unknown - Unknown 300mg Capsules a day Vital Signs Date Vital Result Comment 07/28/2018 10:37am Heart Rate 80 /min BP Systolic 138 mmHg BP Diastolic 82 mmHg Respiratory Rate 18 /min Body Temperature 98.3 F 07/07/2018 10:34am Heart Rate 76 /min BP Systolic Sitting 122 mmHg BP Diastolic Sitting 78 mmHg Respiratory Rate 18 /min Body Temperature 97.6 F 06/27/2018 9:30am Heart Rate 78 /min BP Systolic Sitting 142 mmHg BP Diastolic Sitting 90 mmHg Respiratory Rate 18 /min Body Temperature 98.5 F 06/17/2018 12:48pm Height 63 inches 5'3" Weight 195.00 lb Heart Rate 76 /min BP Systolic 144 mmHg BP Diastolic 84 mmHg Respiratory Rate 16 /min Body Temperature 99.2 F BMI (Body Mass Index) 34.5 kg/m2 05/30/2018 10:41am Height 63 inches 5'3" Weight 195.00 lb Heart Rate 72 /min BP Systolic Sitting 122 mmHg BP Diastolic Sitting 84 mmHg Respiratory Rate 16 /min Body Temperature 98.0 F BMI (Body Mass Index) 34.5 kg/m2 02/10/2018 4:01pm Heart Rate 72 /min Respiratory Rate 16 /min Body Temperature 98.5 F 01/20/2018 1:30pm Heart Rate 78 /min Respiratory Rate 18 /min Body Temperature 97.7 F 01/07/2018 1:35pm Height 63 inches 5'3" Weight 197.00 lb Heart Rate 74 /min BP Systolic 130 mmHg BP Diastolic 82 mmHg Respiratory Rate 16 /min Body Temperature 98.4 F BMI (Body Mass Index) 34.9 kg/m2 01/03/2018 10:44am Heart Rate 72 /min BP Systolic Sitting 136 mmHg BP Diastolic Sitting 84 mmHg Respiratory Rate 20 /min Body Temperature 97.9 F 12/23/2017 1:14pm Heart Rate 72 /min BP Systolic 130 mmHg BP Diastolic 82 mmHg Respiratory Rate 16 /min Body Temperature 98.4 F 12/16/2017 1:44pm Height 66 inches 5'6" Weight 190.00 lb Heart Rate 72 /min BP Systolic 142 mmHg BP Diastolic 84 mmHg Respiratory Rate 16 /min Body Temperature 98.8 F BMI (Body Mass Index) 30.7 kg/m2 06/18/2016 10:13am Height 66 inches 5'6" Weight 180.00 lb Heart Rate 56 /min BP Systolic Sitting 132 mmHg BP Diastolic Sitting 74 mmHg Respiratory Rate 14 /min BMI (Body Mass Index) 29.0 kg/m2 Results Test Date Facility Test Result H/L Range Note Laboratory test 06/22/2018 [facility] Surgical SEE RESULT [address] [place] [address] [phone] CBC Auto Diff 06/17/2018 [facility] White Blood 7.4 10^3/uL N 3.5-10.[address] [place] [address] [phone] Red Blood Count 3.90 10^6/uL N 3.70-4.87 Hemoglobin 12.7 g/dL N 12.0-16.0 Hematocrit 38 % N 35-47 Mean Corpuscular Volume 98 fL High 80-97 Mean Corpuscular Hemoglobin 33 pg High 27-31 Mean Corpuscular HGB Conc 33 g/dL N 31-36 Red Cell Distribution Width 14 % N 10.5-15 Platelet Count 226 10^3/uL N 150-450 Mean Platelet Volume 8.9 fL N 7.4-10.4 Abs Neutrophils 5.2 10^3/uL N 1.5-7.7 Abs Lymphocytes 1.5 10^3/uL N 1.0-4.8 Abs Monocytes 0.6 10^3/uL N 0-0.8 Abs Eosinophils 0.1 10^3/uL N 0-0.6 Abs Basophils 0.0 10^3/uL N 0-0.2 Abs Nucleated RBC 0.0 10^3/uL Granulocyte % 70.0 % Lymphocyte % 20.3 % Monocyte % 8.2 % Eosinophil % 1.1 % Basophil % 0.4 % Nucleated Red Blood Cells % 0.2 Basic Metabolic Panel 06/17/2018 [facility] Sodium 139 mmol/L N 135-[address] [place] [address] [phone] Potassium 4.7 mmol/L N 3.5-5.0 Chloride 106 mmol/L N 101-111 Co2 Carbon Dioxide 27 mmol/L N 22-32 Anion Gap 6 mmol/L N 2-11 Glucose 102 mg/dL High 70-100 Blood Urea Nitrogen 25 mg/dL High 6-24 Creatinine 0.93 mg/dL N 0.51-0.95 BUN/Creatinine Ratio 26.9 High 8-20 Calcium 10.0 mg/dL N 8.6-10.3 Egfr Non- 57.0 >60 Egfr 69.0 >60 2 Laboratory test 01/12/2018 [facility] Surgical SEE RESULT [address] [place] [address] [phone] CBC Auto Diff 01/07/2018 [facility] White Blood 6.1 10^3/uL N 3.5-[address] Count [address]8 [place] [address] [phone] Red Blood Count 3.90 10^6/uL Low 4.00-5.40 Hemoglobin 12.6 g/dL N 12.0-16.0 Hematocrit 38 % N 35-47 Mean Corpuscular Volume 98 fL High 80-97 Mean Corpuscular Hemoglobin 32 pg High 27-31 Mean Corpuscular HGB Conc 33 g/dL N 31-36 Red Cell Distribution Width 14 % N 10.5-15 Platelet Count 197 10^3/uL N 150-450 Mean Platelet Volume 9.2 fL N 7.4-10.4 Abs Neutrophils 4.1 10^3/uL N 1.5-7.7 Abs Lymphocytes 1.3 10^3/uL N 1.0-4.8 Abs Monocytes 0.5 10^3/uL N 0-0.8 Abs Eosinophils 0.1 10^3/uL N 0-0.6 Abs Basophils 0 10^3/uL N 0-0.2 Abs Nucleated RBC 0 10^3/uL Granulocyte % 68.0 % Lymphocyte % 21.2 % Monocyte % 8.2 % Eosinophil % 2.1 % Basophil % 0.5 % Nucleated Red Blood Cells % 0 Comp Metabolic Panel 01/07/2018 [facility] Sodium 140 mmol/L N 135-[address] [place] [address] [phone] Potassium 4.5 mmol/L N 3.5-5.0 Chloride 107 mmol/L N 101-111 Co2 Carbon Dioxide 29 mmol/L N 22-32 Anion Gap 4 mmol/L N 2-11 Glucose 106 mg/dL High 70-100 Blood Urea Nitrogen 26 mg/dL High 6-24 Creatinine 1.01 mg/dL High 0.51-0.95 BUN/Creatinine Ratio 25.7 High 8-20 Calcium 9.8 mg/dL N 8.6-10.3 Total Protein 6.7 g/dL N 6.4-8.9 Albumin 3.9 g/dL N 3.2-5.2 Globulin 2.8 g/dL N 2-4 Albumin/Globulin Ratio 1.4 N 1-3 Total Bilirubin 0.30 mg/dL N 0.2-1.0 Alkaline Phosphatase 50 U/L N 34-104 Alt 10 U/L N 7-52 Ast 17 U/L N 13-39 Egfr Non- 52.0 >60 Egfr 62.9 >60 4 Laboratory test 12/23/2017 [facility] Blood Urea 22 mg/dL N 6- [address] [place] [address] [phone] Creatinine 12/23/2017 [facility] Creatinine 0.90 mg/dL N 0.51- 0.[address] [place] [address] [phone] Egfr Non- 59.4 >60 Egfr 71.8 >60 5 Laboratory 12/21/2017 [facility] Carcinoembryonic 1.5 N 0.1- 5.0 6, 7 test finding [address] Antigen Cea ng/[place] [address] [phone] 1 SEE RESULT BELOW Name: SALUD PEÑA : [address]: Ari Howard MD Acct: [id number] Unit: [id number] AGE: 88 Location: [place] [address] Re06/22/18 SEX: F Status: ADM IN SPEC: [id number] ESTEFANY: 06/22/[address]: Ari Howard MD REQ: [id number] RECD: 06/22/18 STATUS: SOUT _ ORDERED: LEVEL 2 FINAL DIAGNOSIS Incisional hernia, site unspecified, herniorrhaphy: -- Hernia sac. PRE-OPERATIVE DIAGNOSIS Incisional hernia without obstruction or gangrene GROSS DESCRIPTION The specimen is received in formalin labeled, Hernia Sac, and consists of a 19.8 x 9.0 x 2.0 cm aggregate of camarillo-pink to dusky camarillo-red irregular rubbery wrinkled smooth to shaggy fibromembranous tissue fragments admixed with moderate yellow pink fat. [place] [employer] sections, one cassette. Signed by and Reported on: Sanchez Iraheta MD 1348 END OF REPORT DEPARTMENT OF PATHOLOGY, [address] [place] [address] Sanchez Iraheta M.D. Director [facility] # [id number] 2 Because ethnic data is not always readily available, this report includes an eGFR for both -Americans and non- Americans. The National Kidney Disease Education Program (NKDEP) does not endorse the use of the MDRD equation for patients that are not between the ages of 18 and 70, are , have extremes of body size, muscle mass, or nutritional status, or are non- or non-. According to the National Kidney Foundation, irrespective of diagnosis, the stage of the disease is based on the level of kidney function: Stage Description GFR(mL/min/1.73 m(2)) 1 Kidney damage with normal or decreased GFR 90 2 Kidney damage with mild decrease in GFR 60-89 3 Moderate decrease in GFR 30-59 4 Severe decrease in GFR 15-29 5 Kidney failure <15 (or dialysis) 3 SEE RESULT BELOW Name: SALUD PEÑA : [address]: Ari Howard MD Acct: [id number] Unit: [id number] AGE: 87 Location: [place] [address] Re01/12/18 Dis: 01/13/18 SEX: F Status: DIS Dulce SPEC: [id number] ESTEFANY: 01/12/[address] [facility] [address]: Ari Howard MD REQ: [id number] RECD: 01/12/18 STATUS: SOUT _ ORDERED: FS 1ST PER SPEC, FS ADD PER SPEC, LEVEL 4/2 FINAL DIAGNOSIS 1. Omentum, biopsy: -- Benign fibroadipose tissue with focal fat necrosis. -- No evidence of neoplasia or mucin deposition. 2. 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 -- Adherent loop of small intestine with chronic serositis. -- No high grade dysplasia or malignancy. -- All margins are clear. COMMENT: The findings were discussed with Dr. Howard. PATHOLOGY SURGICAL CONSULT Frozen section (FS)/Touch Prep (TP)/Gross Consult (GC) FS 1) Omentum, biopsy: a. No evidence of malignancy. (EP) b. Fat necrosis only. (EP) Findings discussed with Dr. Howard on 01/12/2018 at 0927. PRE-OPERATIVE DIAGNOSIS Benign neoplasm of appendix; 2) small bowel marked with silk suture CONTINUED ON NEXT PAGE DEPARTMENT OF PATHOLOGY, [address] [place] [address] Sanchez Iraheta M.D. Director [facility] # [id number] RUN DATE: 01/14/18 [facility] LAB LIVE PAGE 2 Patient: SALUD PEÑA [id number] (Continued) GROSS DESCRIPTION (Continued) GROSS DESCRIPTION 1. The specimen is received fresh labeled, Omental Studding, and consists of a 2.2 x 2.0 x 1.0 cm yellow pink irregular lobulated portion of adipose tissue. The specimen is serially sectioned and entirely submitted for frozen section microscopy. The frozen section residue is submitted in cassettes FSA and FSB. 2. The specimen is received in formalin labeled, Appendix with En Bloc Small Bowel (Marked Silk Suture) and Portion of Sigmoid Colon, and consists of an 8.4 cm previously disrupted appendix with moderate attached mesoappendix and additional intestinal tissue. The distal 3.8 cm of the appendix has been previously incised with exposed glistening camarillo-pink lobulated mucosal tissue. The remaining diameter averages 0.8 cm. The intact serosa is smooth to shaggy camarillo-red with a few fibromembranous adhesions. There are two adherent intestinal tissue fragments with prominent staple lines measuring 2.3 x 0.8 x 0.5 cm and 3.2 by up to 1.2 x 1.0 cm. The smaller fragment has an attached suture which designates small bowel, 5.9 cm from the proximal margin. The intact lumen measures up to 0.3 cm and contains scant hemorrhagic debris. The mucosa is glistening camarillo-pink and the wall thickness measures up to 0.3 cm. The specimen is inked as follows: proximal margin-green, small bowel margin-blue and remaining intestinal margin-black, serially sectioned from proximal to distal and operations representative sections are submitted in cassettes A through J as follows: A-mesoappendiceal margin, B-proximal margin (green), C-disrupted lumen proximal to small bowel, D-appendix to small bowel margin (blue), E and F-appendix to intestinal margin (black) and G through J-remaining disrupted specimen including distal tip in cassette J. Signed by and Reported on: Ruth Tompkins MD 01/14/18 1511 END OF REPORT DEPARTMENT OF PATHOLOGY, [address] [place] [address] Sanchez Iraheta M.D. Director [facility] # [id number] 4 Because ethnic data is not always readily available, this report includes an eGFR for both -Americans and non- Americans. The National Kidney Disease Education Program (NKDEP) does not endorse the use of the MDRD equation for patients that are not between the ages of 18 and 70, are , have extremes of body size, muscle mass, or nutritional status, or are non- or non-. According to the National Kidney Foundation, irrespective of diagnosis, the stage of the disease is based on the level of kidney function: Stage Description GFR(mL/min/1.73 m(2)) 1 Kidney damage with normal or decreased GFR 90 2 Kidney damage with mild decrease in GFR 60-89 3 Moderate decrease in GFR 30-59 4 Severe decrease in GFR 15-29 5 Kidney failure <15 (or dialysis) 5 Because ethnic data is not always readily available, this report includes an eGFR for both -Americans and non- Americans. The National Kidney Disease Education Program (NKDEP) does not endorse the use of the MDRD equation for patients that are not between the ages of 18 and 70, are , have extremes of body size, muscle mass, or nutritional status, or are non- or non-. According to the National Kidney Foundation, irrespective of diagnosis, the stage of the disease is based on the level of kidney function: Stage Description GFR(mL/min/1.73 m(2)) 1 Kidney damage with normal or decreased GFR 90 2 Kidney damage with mild decrease in GFR 60-89 3 Moderate decrease in GFR 30-59 4 Severe decrease in GFR 15-29 5 Kidney failure <15 (or dialysis) 6 [id number] Nonsmokers: < 2.9 ng/mL Some smokers may have elevated CEA, usually <5.0 ng/mL. Serum markers are not specific for malignancy, and values may vary by method. The testing method is an immunoenzymatic assay soil sampler by [employer] performed on [employer] DXI 600. Do not interpret serum CEA levels as absolute evidence of the presence or the absence of malignant disease. Use serum CEA in conjunction with information from the clinical evaluation of the patient and other diagnostic procedures. Procedures Date Code Description Status 06/22/2018 51829 Implant For Incisional/Ventral Hernia Repair Completed 06/22/2018 49328 Implant For Incisional/Ventral Hernia Repair Completed 06/22/2018 27755 Repair Hernia Incisional/Ventral Initial, Reducible Completed 06/22/2018 99307 Repair Hernia Incisional/Ventral Initial, Reducible Completed 01/12/2018 76298 Laparoscopy, Surgical, Appendectomy Completed 01/12/2018 10929 Laparoscopy, Surgical, Appendectomy Completed 02/04/2012 48653 Color Flow Doppler/Interp & Reprt Completed 02/04/2012 07979 Pulse Wave/Continuous-Interp.RPT Completed 02/04/2012 57989 ECHO Transthorasic Realtime 2D W Doppler & Color Flow Hosp Completed 02/04/2012 24772 Treadmill Interp/Report Only Completed 02/04/2012 22546 Stress Test Supervsn W/Out I/R Completed 02/04/2012 68531 EKG, Interpretation Only Completed Encounters Type Date Location Provider Dx Diagnosis Office Visit 05/30/2018 Surgical Ari Howard, K43.2 Incisional hernia 10:15a [facility] without obstruction or gangrene Office Visit 01/03/2018 [facility] Ari Howard, D12.1 Benign neoplasm of 11:00a [facility] appendix R53.83 Other fatigue Office Visit 12/23/2017 1:00p [facility] Ari Donis D12.1 Benign neoplasm [facility] MD, of appendix FACS R53.83 Other fatigue K58.0 Irritable bowel syndrome with diarrhea Office Visit 12/16/2017 1:45p [facility] Ari Donis R53.83 Other fatigue [facility] MD, FACS 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 R26.81 Unsteadiness on feet Office Visit 02/04/2012 1:10p [facility] Matthew Smith 428.1 [facility],jennifer GUILLEN M.D. [facility] 729.81 Swelling Of Limb 786.02 Orthopnea 780.53 Hypersomnia W/ Sleep Apnea Unspecified Office Visit 02/03/2012 1:10p [facility] Nicko Luna, 428.1 [facility],jennifer Tpiton [facility] 729.81 Swelling Of Limb 786.02 Orthopnea 780.53 Hypersomnia W/ Sleep Apnea Unspecified Plan of Treatment 07/28/2018 - Ari Howard MD, FACSK43.2 Incisional hernia without obstruction or gangreneFollow up:None needed
[2018-08-22 19:21] LABS: Albumin/Globulin Ratio 1.2 (1-3); C Reactive Protein 8.13 mg/L (<8.01); Calcium 9.7 mg/dL (8.6-10.3); EGFR African American 63.5 (>60); EGFR Non-African American 52.4 (>60); Globulin 3.4 g/dL (2-4); Magnesium 2.2 mg/dL (1.9-2.7); Total Bilirubin 0.4 mg/dL (0.2-1.0); Total Protein 7.4 g/dL (6.4-8.9)
[2018-08-22 20:01] LABS: TSH (Thyroid Stimulating Horm) 3.89 mcIU/mL (0.34-5.60)
[2018-08-22] MEDS ORDERED: Iodixanol* (CONTRAST) 320 MG/ML 100 ML SDV IV ONE (20:06)
[2018-08-22] MEDS ORDERED: NS 0.9% 500 ML* 500 ML IV ONE (20:54)
--- NOTE | 2018-08-22 21:08 | ED ---
HPI Chest Pain - HPI Summary HPI Summary: Patient complains of tenderness left lateral chest wall starting today. Pain is worse with movement, coughing, sneezing, deep breaths. Denies trauma, fever , cough, SOB, sore throat, N/V/D, abdominal pain, change in urine, change in BM. Patient states recent hernia repair this year but unsure of date. - History of Current Complaint Chief Complaint: EDFlankPain Time Seen by Provider: 08/22/18 18:33 Hx Obtained From: Patient Onset/Duration: Started Hours Ago Timing: Constant Initial Severity: Mild Current Severity: Mild Pain Intensity: 3 Pain Scale Used: 0-10 Numeric Chest Pain Location: Left Lateral Chest Pain Radiates: No Character: Dull/Aching Aggravating Factor(s): Movement, Deep Breaths Alleviating Factor(s): Position Associated Signs and Symptoms: Positive: Negative - Additional Pertinent History Primary Care Physician: HERVE - Allergy/Home Medications Allergies/Adverse Reactions: Allergies Allergy/AdvReac Type Severity Reaction Status Date / Time Penicillins Allergy Intermediate Itching Verified 06/22/18 06:53 PMH/Surg Hx/FS Hx/Imm Hx Endocrine/Hematology History: Reports: Other Endocrine/Hematological Disorders - "overactive pancreas" Denies: Hx Anticoagulant Therapy, Hx Diabetes, Hx Thyroid Disease Cardiovascular History: Reports: Hx Angina, Hx Hypercholesterolemia, Hx Hypertension Denies: Hx Coronary Artery Disease, Hx Myocardial Infarction, Hx Pacemaker/ ICD, Hx Valvular Heart Disease Respiratory History: Reports: Hx Sleep Apnea - CPAP Denies: Hx Asthma, Hx Chronic Obstructive Pulmonary Disease (COPD), Other Respiratory Problems/Disorders GI History: Denies: Other GI Disorders History: Reports: Hx Kidney Infection - age 20 Denies: Hx Benign Prostatic Hyperplasia, Hx Chronic Renal Failure, Hx Dialysis, Hx Kidney Stones, Hx Renal Disease Musculoskeletal History: Reports: Hx Arthritis - knees, hands, feet, left frozen shoulder, Hx Fibromyalgia Denies: Other Musculoskeletal History Sensory History: Reports: Hx Contacts or Glasses - reading glasses, Hx Vision Problem Denies: Hx Hearing Aid Opthamlomology History: Reports: Hx Contacts or Glasses - reading glasses, Hx Vision Problem Neurological History: Reports: Other Neuro Impairments/Disorders - memory lapses , confusion in the past year Denies: Hx Dementia, Hx Seizures Psychiatric History: Reports: Hx Anxiety Denies: Hx Substance Abuse - Cancer History Cancer Type, Location and Year: breast ca - right masectomy, pessary,sleep apnea Hx Chemotherapy: Yes - Surgical History Surgery Procedure, Year, and Place: hernia repair, age 6,. tonsillectomy, as a child. mastectomy right, 1990s. appendectomy and hernia, 2018 Hx Anesthesia Reactions: No Infectious Disease History: No Infectious Disease History: Denies: Hx Hepatitis, Hx Human Immunodeficiency Virus (HIV), Hx Shingles, Traveled Outside the [place] in Last 30 Days - Family History Known Family History: Positive: Hypertension Negative: Cardiac Disease, Diabetes - Social History Alcohol Use: None Alcohol Amount: social Substance Use Type: Reports: None Hx Tobacco Use: No Smoking Status (MU): Never Smoked Tobacco Review of Systems Constitutional: Negative Eyes: Negative ENT: Negative Cardiovascular: Negative Respiratory: Negative Gastrointestinal: Negative Genitourinary: Negative Musculoskeletal: Negative Skin: Negative Neurological: Negative Psychological: Normal All Other Systems Reviewed And Are Negative: Yes Physical Exam - Summary Physical Exam Summary: Tenderness over left lateral chest wall. No ecchymosis, erythema, deformity, swelling noted. Regular rate and rhythm. Lung sounds clear to auscultation bilaterally. Abdomen soft nontender. Triage Information Reviewed: Yes Vital Signs On Initial Exam: Initial Vitals Pulse BP Pulse Ox 72 166/81 96 08/22/18 18:01 08/22/18 18:01 08/22/18 18:01 Vital Signs Reviewed: Yes Appearance: Positive: Well-Appearing Skin: Positive: Warm Head/Face: Positive: Normal Head/Face Inspection Eyes: Positive: Normal Neck: Positive: Supple Respiratory/Lung Sounds: Positive: Clear to Auscultation Cardiovascular: Positive: Normal Abdomen Description: Positive: Nontender Musculoskeletal: Positive: Normal Neurological: Positive: Normal Psychiatric: Positive: Normal AVPU Assessment: Alert - [place] Coma Scale Best Eye Response: 4 - Spontaneous Best Motor Response: 6 - Obeys Commands Best Verbal Response: 5 - Oriented Coma Scale Total: 15 Diagnostics - Vital Signs Vital Signs Temp Pulse Resp BP Pulse Ox 08/22/18 20:13 98.0 F 64 22 147/73 93 08/22/18 20:01 63 18 147/73 94 08/22/18 20:00 61 21 93 08/22/18 19:32 64 21 153/74 94 08/22/18 19:01 67 19 176/82 95 08/22/18 19:00 68 25 95 08/22/18 18:31 65 20 159/74 95 08/22/18 18:15 97.5 F 69 21 166/81 94 08/22/18 18:01 72 166/81 96 - Laboratory Lab Results: Lab Results 08/22/18 08/22/18 08/22/18 Range/Units 18:52 18:52 18:52 WBC 6.7 (3.5-10.8) 10^3/uL RBC 3.55 L (3.70-4.87) 10^6 /uL Hgb 11.5 L (12.0-16.0) g/dL Hct 35 (35-47) % MCV 97 (80-97) fL MCH 32 H (27-31) pg MCHC 33 (31-36) g/dL RDW 15 (10-15) % Plt Count 210 (150-450) 10^3/uL MPV 8.9 (7.4-10.4) fL Neut % (Auto) 70.6 % Lymph % (Auto) 19.7 % Archule[place] % (Auto) 7.2 % Eos % (Auto) 2.0 % Baso % (Auto) 0.5 % Absolute Neuts (auto) 4.8 (1.5-7.7) 10^3/ul Absolute Lymphs (auto) 1.3 (1.0-4.8) 10^3/ul Absolute Monos (auto) 0.5 (0-0.8) 10^3/ul Absolute Eos (auto) 0.1 (0-0.6) 10^3/ul Absolute Basos (auto) 0.0 (0-0.2) 10^3/ul Absolute Nucleated RBC 0.0 10^3/ul Nucleated RBC % 0.0 INR (Anticoag Therapy) 1.04 (0.82-1.09) Sodium 137 (135-145) mmol/L Potassium 4.0 (3.5-5.0) mmol/L Chloride 105 (101-111) mmol/L Carbon Dioxide 25 (22-32) mmol/L Anion Gap 7 (2-11) mmol/L BUN 35 H (6-24) mg/dL Creatinine 1.00 H (0.51-0.95) mg/dL Est GFR ( Amer) 63.5 (>60) Est GFR (Non-Af Amer) 52.4 (>60) BUN/Creatinine Ratio 35.0 H (8-20) Glucose 125 H (70-100) mg/dL Lactic Acid (0.5-2.0) mmol/L Calcium 9.7 (8.6-10.3) mg/dL Magnesium 2.2 (1.9-2.7) mg/dL Total Bilirubin 0.40 (0.2-1.0) mg/dL AST 27 (13-39) U/L ALT 16 (7-52) U/L Alkaline Phosphatase 76 (34-104) U/L Troponin I (<0.04) ng/mL C-Reactive Protein 8.13 H (<8.01) mg/L Total Protein 7.4 (6.4-8.9) g/dL Albumin 4.0 (3.2-5.2) g/dL Globulin 3.4 (2-4) g/dL Albumin/Globulin Ratio 1.2 (1-3) Lipase 15 (11.0-82.0) U/L TSH 3.89 (0.34-5.60) mcIU/mL 08/22/18 08/22/18 Range/Units 18:52 18:52 WBC (3.5-10.8) 10^3/uL RBC (3.70-4.87) 10^6 /uL Hgb (12.0-16.0) g/dL Hct (35-47) % MCV (80-97) fL MCH (27-31) pg MCHC (31-36) g/dL RDW (10-15) % Plt Count (150-450) 10^3/uL MPV (7.4-10.4) fL Neut % (Auto) % Lymph % (Auto) % Archule[place] % (Auto) % Eos % (Auto) % Baso % (Auto) % Absolute Neuts (auto) (1.5-7.7) 10^3/ul Absolute Lymphs (auto) (1.0-4.8) 10^3/ul Absolute Monos (auto) (0-0.8) 10^3/ul Absolute Eos (auto) (0-0.6) 10^3/ul Absolute Basos (auto) (0-0.2) 10^3/ul Absolute Nucleated RBC 10^3/ul Nucleated RBC % INR (Anticoag Therapy) (0.82-1.09) Sodium (135-145) mmol/L Potassium (3.5-5.0) mmol/L Chloride (101-111) mmol/L Carbon Dioxide (22-32) mmol/L Anion Gap (2-11) mmol/L BUN (6-24) mg/dL Creatinine (0.51-0.95) mg/dL Est GFR ( Amer) (>60) Est GFR (Non-Af Amer) (>60) BUN/Creatinine Ratio (8-20) Glucose (70-100) mg/dL Lactic Acid 0.9 (0.5-2.0) mmol/L Calcium (8.6-10.3) mg/dL Magnesium (1.9-2.7) mg/dL Total Bilirubin (0.2-1.0) mg/dL AST (13-39) U/L ALT (7-52) U/L Alkaline Phosphatase (34-104) U/L Troponin I 0.01 (<0.04) ng/mL C-Reactive Protein (<8.01) mg/L Total Protein (6.4-8.9) g/dL Albumin (3.2-5.2) g/dL Globulin (2-4) g/dL Albumin/Globulin Ratio (1-3) Lipase (11.0-82.0) U/L TSH (0.34-5.60) mcIU/mL Result Diagrams: 08/22/18 18:52 08/22/18 18:52 Lab Statement: Any lab studies that have been ordered have been reviewed, and results considered in the medical decision making process. Chest Pain Course/Dx - Course Course Of Treatment: Patient complains of tenderness left lateral chest wall starting today. Pain is worse with movement, coughing, sneezing, deep breaths. Denies trauma, fever, cough, SOB, sore throat, N/V/D, abdominal pain, change in urine, change in BM. Patient states recent hernia repair this year but unsure of date. Vital signs within normal limits. Labs are patient baseline. EKG sinus rhythm. CT chest abdomen and pelvis positive for healing fractures in left ribs 5 and 6 laterally no acute fracture identified. Bones are diffusely demineralized. Incidental finding of subcutaneous density and fat stranding in the lower anterior abdominal wall containing a 1.4 x 3.6 and a liter low-density collection which could represent resolving hematoma, postop seroma, or abscess. Correlate with clinical findings and surgical history. Patient states history of recent hernia repair this year. Physical exam findings no mass, ecchymosis, erythema, extra warmth, deformity. Abdomen is soft nontender. No pain with palpation. Patient provided with incentive spirometry. Patient lives at [place] and has medical assistance available. - Diagnoses Provider Diagnoses: Rib fractures Discharge - Sign-Out/Discharge Documenting (check all that apply): Patient Departure Patient Received Moderate/Deep Sedation with Procedure: No - Discharge Plan Condition: Stable Disposition: HOME Prescriptions: Acetaminophen TAB* [Tylenol TAB*] 650 mg PO Q6H PRN 3 Days #24 tab PRN Reason: Pain Ibuprofen TAB* [Motrin TAB* 400 MG] 400 mg PO Q6H PRN 4 Days #12 tab PRN Reason: Pain Patient Education Materials: Chest Wall Pain (ED) Referrals: Pita Bailon MD [Primary Care Provider] - Additional Instructions: Alternate ibuprofen 400 mg with Tylenol 650 mg every 3 hours for left side rib pain over the next 3 days.. Avoid any strenuous activity that causes pain to left side ribs. Use incentive spirometry to maintain proper air exchange. Follow-up with primary care. Return to the ED for any new or worsening symptoms. Incidental finding on CT involves subcutaneous density and fat stranding in the lower anterior abdominal wall containing a 1 x 4 x 3 x 6 cm low density collection which could represent resolving hematoma, postop seroma, or abscess. - Billing Disposition and Condition Condition: STABLE Disposition: Home
[2018-08-22] MEDS ORDERED: NS 0.9% 1000 ML** 1,000 ML IV.FLUID IV ONE (21:53)
[2018-08-22] MEDS ORDERED: Acetaminophen TAB* 325 MG PO ONE (22:04)
[2018-08-22 22:34] VITALS: BP 158/72
[2018-08-22 22:55] LABS: Urine Appearance Clear; Urine Bacteria Absent (Absent); Urine Bilirubin Negative (Negative); Urine Blood 1+ (Negative); Urine Color Straw; Urine Glucose Negative (Negative); Urine Ketones Negative (Negative); Urine Nitrite Negative (Negative); Urine Protein Negative (Negative); Urine Red Blood Cell Trace(0-2/hpf) (Absent); Urine Specific Gravity 1.031 (1.010-1.030); Urine Squamous Epithelial Cell Present (Absent); Urine Urobilinogen Negative (Negative); Urine White Blood Cell Absent (Absent)
== END 2018-08-22 22:35 | disposition home or self-care (01) ==
LOC: ED 17:56
DX: R07.89 Other chest pain (principal); S22.42XD Multiple fractures of ribs, left side, subsequent encounter for fracture with routine healing; X58.XXXD Exposure to other specified factors, subsequent encounter; I10 Essential (primary) hypertension; Z88.0 Allergy status to penicillin
CPT/HCPCS: 36415; 71260; 74177; 80053; 81003; 81015; 83605; 83690; 83735; 84443; 84484; 85025; 85610; 86140; 93005; 96360; 99285; A9270-GY; Q9967

== ENCOUNTER 2018-11-03 17:48 | Emergency (ER) | payer MEDICARE, BC ==
--- OUTSIDE RECORDS SUMMARY | 2018-11-03 18:06 | XMS REPORT | Summary of Care ---
:1930 Author Organization [facility] Address [address] [place] [address] Care Team Providers Name Role Phone Pita Bailon MD Primary Care Provider Reason for Visit Reason Comments Check Up for nursing facilty Encounter Details Date Type Department Care Team Description 10/04/2018 Office Visit [facility], Rib pain on left side ( Primary Dx); Practice Pita Hanley MD Presence of intracervical pessary; [address] [place] [address] [place] [address] [phone] Allergies Active Allergy Reactions Severity Noted Date Comments Penicillin G Dermatologic Reaction 09/08/2012 Makes palms itch documented as of this encounter (statuses as of 10/04/2018) Medications Medication Sig Dispensed Refills Start Date End Date Status fluticasone (FLONASE) [place] 2 Sprays in 0 Active 50 MCG/ACT Nasal nose DAILY. Suspension azelastine (ASTELIN) [place] 1 [place] in 0 Active 137 MCG/SPRAY Nasal nose TWICE DAILY. Solution polyethylene glycol Take 17 g by 289 g 1 12/07/2017 Active (MIRALAX) Oral mouth EVERY OTHER PowderIndications: Hx DAY. Mix with 8 of constipation oz of water white petrolatum Apply 1 Appl by Topical 453 g 0 03/09/2018 Active externally Ointment route DAILY. zinc oxide (DESITIN 1 Appl by Topical 57 g 5 03/25/2018 Active RAPID RELIEF) 13 % route TWO TIMES Apply externally DAILY NEEDED CreamIndications: (perianal Perianal dermatitis irritation). fluoxetine (PROZAC) 10 Take 1 Tab by 90 Tab 3 04/19/2018 Active MG Oral Tab mouth DAILY. acetaminophen (TYLENOL) Take 2 Tabs by 120 Tab 5 09/02/2018 Active 325 MG Oral Tab mouth EVERY FOUR HOURS NEEDED (pain). documented as of this encounter (statuses as of 10/04/2018) Active Problems Problem Noted Date Mixed hyperlipidemia 03/22/2017 Nasal dryness 01/26/2013 JERRICA (obstructive sleep apnea) 09/08/2012 Overview: Patient has CPAP @ 10 cm through [place] Patient- [place] SOB (shortness of breath) 09/08/2012 documented as of this encounter (statuses as of 10/04/2018) Immunizations Name Administration Dates Next Due Influenza Vaccine High Dose 11/15/2017 documented as of this encounter Social History Tobacco Use Types Packs/Day Years Used Date Never Smoker Smokeless Tobacco: Never Used Comments: exposed to second hand smoke Alcohol Use Drinks/Week oz/Week Comments No Sex Assigned at Date Recorded Not on file Job Start Date Occupation Industry Not on file Not on file Not on file Travel History Travel Start Travel End No recent travel history available. documented as of this encounter Last Filed Vital Signs Vital Sign Reading Time Taken Comments Blood Pressure 142/82 10/04/2018 2:24 PM EDT Pulse 61 10/04/2018 2:24 PM EDT Temperature - - Respiratory Rate - - Oxygen Saturation 94% 10/04/2018 2:24 PM EDT Inhaled Oxygen Concentration - - Weight 86.6 kg (191 lb) 10/04/2018 2:24 PM EDT Height 154.9 cm (5' 1") 10/04/2018 2:24 PM EDT Body Mass Index 36.09 10/04/2018 2:24 PM EDT documented in this encounter Patient Instructions Patient InstructionsPita Bailon MD - 10/04/2018 2:20 PM EDTNo med changes made today We reviewed your laboratory tests today. Your appointment with Dr Avalos is 10/06/18. documented in this encounter Progress Notes Pita Bailon MD - 10/04/2018 2:20 PM EDT Nursing Notes: Ruth Steele LPN 10/04/2018 2:34 PM Signed Chief Complaint Patient presents with Check Up for nursing facilty Chief Complaint: Veronique Coyle is a 88-y.o. female who presents for annual paperwork adnd follow up for [place] Here with friend Grant. History of Present Illness/ROS: Here for recheck. No acute concerns today. I referred her to director of recreation therapy for pessary care last visit. She has not been seen yet. 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 She had laboratory tests done at [facility] 09/20/18: normal CMP, GFR 55, TSH 4.06. Cbc normal. She is very pale, but not anemic on laboratory tests. The only complaint is she sleeps a lot, sometimes misses meals. Pat denies depression, does not want an adjustment of her Fluoxetine. Review of Systems - General ROS: negative for - chills or fever, unexpected weight changes,weight has been stable. ENT ROS: negative for upper respiratory infection symptoms Respiratory ROS: negative for - cough or shortness of breath Cardiovascular ROS: negative for - chest pain, dyspnea on exertion, edema Gastrointestinal ROS: no abdominal pain, change in bowel habits, or black or bloody stools Genito-Urinary ROS: no dysuria Neuro: memory --has good and bad days. She loves to read and continues to do so. Psych: Denies depression Office Visit on 09/06/2018 Component Date Value Ref Range Status TSH 09/06/2018 4.52 0.47 - 4.68 uIu/ml Final WBC Count 09/06/2018 6.61 3.98 - 10.04 K/uL Final Methodology was changed 02/10/2018. Please note updated reference range and units. RBC Count 09/06/2018 3.73* 3.93 - 5.22 M/UL Final Hemoglobin 09/06/2018 11.7 11.2 - 15.7 G/DL Final Hematocrit 09/06/2018 37.2 34.1 - 44.9 % Final MCV 09/06/2018 99.7* 79.4 - 94.8 FL Final MCH 09/06/2018 31.4 25.6 - 32.2 PG Final MCHC 09/06/2018 31.5* 32.2 - 35.5 g/dL Final Platelet Count 09/06/2018 239 182 - 369 K/uL Final MPV 09/06/2018 10.8 9.4 - 12.3 FL Final RDW 09/06/2018 14.3 11.7 - 14.4 % Final Sodium 09/06/2018 136 134 - 145 mmol/L Final Potassium 09/06/2018 4.3 3.5 - 5.1 mmol/L Final Chloride 09/06/2018 101 98 - 107 mmol/L Final CO2 09/06/2018 26 22 - 30 mmol/L Final Calcium 09/06/2018 10.1 8.3 - 10.1 mg/dl Final Albumin 09/06/2018 4.3 3.5 - 5.0 g/dl Final BUN 09/06/2018 27* 7 - 17 mg/dl Final Creatinine 09/06/2018 0.9 0.7 - 1.2 mg/dl Final Glucose 09/06/2018 104* 70 - 99 mg/dl Final Total Protein 09/06/2018 8.3* 6.3 - 8.2 g/dl Final Total Bilirubin 09/06/2018 0.3 0.0 - 1.1 MG/DL Final AST 09/06/2018 47* 15 - 46 U/L Final ALT 09/06/2018 17 9 - 52 U/L Final Alkaline Phosphatase 09/06/2018 72 40 - 150 U/L Final eGFR 09/06/2018 59 See Interpretation Below ml/min/1.73ml Sq Final Estimated GFR Interpretation: Above 60ml/min/1.73m2 = Normal Renal Function 30-59 ml/min/1.73m2 = Stage 3 Chronic Kidney Disease 15-29 ml/min/1.73m2 = Stage 4 Chronic Kidney Disease Less than 15 ml/min/1.73m2 = Stage 5 Chronic Kidney Disease The GFR value is calculated using the Modification of Diet in Renal Disease ( MDRD) Study Equation which can be found at: https://www.kidney.org/content/qxyx-kjbhj-knvzcnnq BUN/Creatinine Ratio 09/06/2018 30* 6 - 22 RATIO Final Anion Gap 09/06/2018 9 3 - 11 mmol/L Final A/G Ratio 09/06/2018 1.1 0.8 - 2.0 ratio Final Past Medical History: Diagnosis Date Breast cancer (HCC) s/p chemotherapy &mastectomy Breast cancer (HCC) 2001 right mastectomy [place], [place] [facility]. Chronic kidney disease nephritis age 20 Depression Edema of both legs Essential (primary) hypertension Fibromyalgia Fibromyalgia History of PFTs 2012 mild obstruction Hyperlipidemia Hyperlipidemia JERRICA (obstructive sleep apnea) Uterine prolapse Past Surgical History: Procedure Laterality Date APPENDECTOMY 01/22/2018 cystadenoma MASTECTOMY 2006 right REPAIR INITIAL INGUINAL HERNIA, 1937-38 TONSILLECTOMY Current Outpatient Medications: acetaminophen (TYLENOL) 325 MG Oral Tab, Take 2 Tabs by mouth EVERY FOUR HOURS NEEDED (pain)., Disp: 120 Tab, Rfl: 5 azelastine (ASTELIN) 137 MCG/SPRAY Nasal Solution, [place] 1 [place] in nose TWICE DAILY., Disp:, Rfl: fluoxetine (PROZAC) 10 MG Oral Tab, Take 1 Tab by mouth DAILY., Disp: 90 Tab, Rfl: 3 fluticasone (FLONASE) 50 MCG/ACT Nasal Suspension, [place] 2 Sprays in nose DAILY., Disp: , Rfl: polyethylene glycol (MIRALAX) Oral Powder, Take 17 g by mouth EVERY OTHER DAY. Mix with 8 ozof water, Disp: 289 g, Rfl: 1 white petrolatum Apply externally Ointment, 1 Appl by Topical route DAILY., Disp: 453 g, Rfl: 0 zinc oxide (DESITIN RAPID RELIEF) 13 % Apply externally Cream, 1 Appl by Topical route TWO TIMES DAILY NEEDED (perianal irritation)., Disp: 57 g, Rfl: 5 Allergies Allergen Reactions Penicillin G Dermatologic Reaction Makes palms itch Social History Socioeconomic History Marital status: Other Spouse name: Not on file Number of children: Not on file Years of education: Not on file Highest education level: Not on file Occupational History Not on file Social Needs Financial resource strain: Not on file Food insecurity: Worry: Patient refused Inability: Patient refused Transportation needs: Medical: Patient refused Non-medical: Patient refused Tobacco Use Smoking status: Never Smoker Smokeless tobacco: Never Used Tobacco comment: exposed to second hand smoke Substance and Sexual Activity Alcohol use: No Drug use: No Sexual activity: Not Currently Partners: Male Lifestyle Physical activity: Days per week: Patient refused Minutes per session: Patient refused Stress: Not on file Relationships Social connections: Talks on phone: Patient refused Gets together: Patient refused Attends hindu service: Patient refused Active member of club or organization: Patient refused Attends meetings of clubs or organizations: Patient refused Relationship status: Patient refused Intimate partner violence: Fear of current or ex partner: Patient refused Emotionally abused: Patient refused Physically abused: Patient refused Forced sexual activity: Patient refused Other Topics Concern Back Care Not Asked Bike Helmet Not Asked Blood Transfusions Not Asked Caffeine Concern Not Asked Exercise Not Asked Hobby Hazards Not Asked International Travel Not Asked Service Not Asked Occupational Exposure Not Asked Seat Belt Not Asked Self-Exams Not Asked Sleep Concern Not Asked Special Diet Not Asked Stress Concern Not Asked Weight Concern Not Asked Social History Narrative 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 No | BMI 36.09 kg/m Physical Examination: General appearance - alert, well appearing, and in no distress Mental status - alert, oriented to person, place, and time, normal mood, behavior, speech, dress, motor activity, and thought processes Eyes - pupils equal and reactive, sclera anicteric Neck - supple, no cervical or supraclavicular adenopathy, carotids upstroke normal bilaterally, no bruits, thyroid exam: thyroid is normal in size without nodules or tenderness, no neck masses palpated. Chest/Lungs - clear to auscultation, no wheezes, rales or rhonchi, symmetric air entry, good aeration Heart - normal rate, regular rhythm, normal S1, S2, no murmurs, rubs, clicks or gallops Abdomen - soft, non tender on palpation, nondistended Neurological - alert, oriented, normal speech, no gross focal findings or movement disorder noted Extremities - dorsalis pedis pulses normal, no pedal edema, no clubbing or cyanosis ASSESSMENT/PLAN: ICD-9-CM ICD-10-CM 1. Rib pain on left side 786.50 R07.81 2. Presence of intracervical pessary V45.51 Z97.5 3. Pallor 782.61 R23.1 Rib pain is still present but improving. Xray negative last visit. Pallor is not from anemia per laboratory tests on 09/20/18 Her pessary appointment in in 2 days, Dr Avalos's office. Author: Pita Bailon MD 10/04/2018 15:15 documented in this encounter Plan of Treatment Date Type Specialty Care Team Description 01/16/2019 Office Visit Family [facility] Pita Bailon MD [address] [id number] [phone] Health Maintenance Due Date Last Done Comments MEDICARE ANNUAL WELLNESS VISIT 1930 ZOSTER IMMUNIZATION SERIES (1 1981 of 2) PNEUMOCOCCAL 65+YRS (1 of 2 - 02/03/1996 PCV13) INFLUENZA VACCINE (#1) 2018 12/01/2017, 11/15/2017, 11/03/2016 DEPRESSION SCREENING 09/07/2019 09/06/2018 FALL RISK ASSESSMENT 09/07/2019 09/06/2018, 09/06/2018 LIPID DISORDER SCREENING 03/22/2022 03/22/2017 HPV IMMUNIZATION SERIES Aged Out No longer eligible based on patient's age to complete this topic MENINGOCOCCAL VACCINE IMM Aged Out No longer eligible based on patient's age to complete this topic documented as of this encounter Goals Goal Patient Goal Associated Recent Patient-Stated? Author Type Problems Progress Depression Depression No carlos Saez (PHQ-9) Katie, total score < 5 RN Note: This is an individualized treatment (depression) goal for Veronique Coyle: Displayed above is your goal for a depression screening (PHQ-9) score that would indicate good control of your depression. Keep a regular sleep schedule Lifestyle No Katie Saez RN Note: This is an individualized lifestyle goal for Veroniquezaid Coyle: Please maintain a regular sleep schedule. This may help with some symptoms of depression. Take all prescribed medications as Self-management No Katie Saez RN directed Note: This is an individualized self-management goal for Veronique Coyle: Please take all prescribed medications as directed. 1. Do not skip doses. If you cannot afford your medications, talk with your doctor. 2. Use a pill reminder system such as a pill box if needed. Your pharmacist can help you with this. 3. Contact your Pharmacy 5 days before your medication runs out. If you cannot take your medications for any reasons, talk with your doctor. 4. Please bring all of your medication bottles and inhalers (or a list of all your medications/inhalers) with you to every visit. Potential barriers to meeting all of your care plan goals will continue to be addressed on an ongoing basis. documented as of this encounter Results Not on filedocumented in this encounter Visit Diagnoses Diagnosis Rib pain on left side - Primary Chest pain, unspecified Presence of intracervical pessary Pall[place] documented in this encounter Insurance Payer Benefit Plan / Subscriber ID Effective Dates Phone Address Type Group MEDICARE MEDICARE PART xxxxxxxxxx 1997-[facility] Medicare A & B [facility] Blue t Cross/Blue Shield Guarantor Name Account Type Relation to Date of Phone Billing Patient Address Veronique Coyle Personal/Family 1930 [phone] [address] (Home) [place] [phone] [place], [place] (Work) [id number] documented as of this encounter
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
[2018-11-03] MEDS ORDERED: Ibuprofen TAB* 400 MG PO ONE (20:23)
[2018-11-03 20:37] LABS: ABS Eosinophils 0.1 10^3/ul (0-0.6); ABS Lymphocytes 1.3 10^3/ul (1.0-4.8); ABS Monocytes 0.7 10^3/ul (0-0.8); ABS Neutrophils 5.1 10^3/ul (1.5-7.7); Eosinophil % 1.2 %; Hematocrit 35 % (35-47); Hemoglobin 11.6 g/dL (12.0-16.0); Lymphocyte % 18.3 %; Mean Corpuscular HGB Conc 33 g/dL (31-36); Mean Corpuscular Hemoglobin 32 pg (27-31); Mean Corpuscular Volume 95 fL (80-97); Mean Platelet Volume 9.1 fL (7.4-10.4); Nucleated Red Blood Cells % 0.1; Platelet Count 182 10^3/uL (150-450); Red Blood Count 3.67 10^6 /uL (3.70-4.87); Red Cell Distribution Width 15 % (10-15); White Blood Count 7.2 10^3/uL (3.5-10.8)
[2018-11-03 20:48] LABS: Albumin 3.9 g/dL (3.2-5.2); Albumin/Globulin Ratio 1.1 (1-3); BUN/Creatinine Ratio 27.5 (8-20); Calcium 10.2 mg/dL (8.6-10.3); EGFR African American 57.5 (>60); EGFR Non-African American 47.5 (>60); Globulin 3.6 g/dL (2-4); Potassium 4.1 mmol/L (3.5-5.0); Total Bilirubin 0.4 mg/dL (0.2-1.0); Total Protein 7.5 g/dL (6.4-8.9)
[2018-11-03 20:49] LABS: Troponin I 0.02 ng/mL (<0.04)
[2018-11-03] MEDS ORDERED: Ibuprofen TAB* 400 MG PO PRN (21:51)
[2018-11-03] MEDS ORDERED: Acetaminophen TAB* 325 MG PO PRN (21:51)
[2018-11-03 22:03] VITALS: BP 186/100
[2018-11-04] MEDS ORDERED: FLUoxetine CAP* 10 MG PO SCH (21:00)
[2018-11-05] MEDS ORDERED: Polyethylene Glycol 3350* 17 GM PACKET PO SCH (09:00)
== END 2018-11-03 22:02 | disposition home or self-care (01) ==
LOC: ED 17:48
DX: S22.42XD Multiple fractures of ribs, left side, subsequent encounter for fracture with routine healing (principal); V49.9XXD Car occupant (driver) (passenger) injured in unspecified traffic accident, subsequent encounter; E78.00 Pure hypercholesterolemia, unspecified; I10 Essential (primary) hypertension; F41.9 Anxiety disorder, unspecified; Z85.3 Personal history of malignant neoplasm of breast; Z90.11 Acquired absence of right breast and nipple; Z79.899 Other long term (current) drug therapy; Z88.0 Allergy status to penicillin
CPT/HCPCS: 36415; 71045; 80053; 84484; 85025; 93005; 99283; A9270-GY

== ENCOUNTER 2018-11-29 15:09 | Emergency (ER) | payer MEDICARE, BC ==
[2018-11-29 15:48] LABS: ABS Lymphocytes 1.4 10^3/ul (1.0-4.8); ABS Monocytes 0.7 10^3/ul (0-0.8); ABS Neutrophils 7.5 10^3/ul (1.5-7.7); Eosinophil % 0.4 %; Hematocrit 34 % (35-47); Hemoglobin 11.2 g/dL (12.0-16.0); Lymphocyte % 14.5 %; Mean Corpuscular HGB Conc 33 g/dL (31-36); Mean Corpuscular Hemoglobin 31 pg (27-31); Mean Corpuscular Volume 94 fL (80-97); Mean Platelet Volume 9.1 fL (7.4-10.4); Platelet Count 138 10^3/uL (150-450); Red Blood Count 3.57 10^6 /uL (3.70-4.87); Red Cell Distribution Width 15 % (10-15); White Blood Count 9.8 10^3/uL (3.5-10.8)
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
--- OUTSIDE RECORDS SUMMARY | 2018-11-29 16:09 | XMS REPORT | Summary of Care ---
:1930 Author Organization [facility] Address [address] [place] [address] Care Team Providers Name Role Phone Pita Bailon MD Primary Care Provider Reason for Referral Durable Medical Equipment (Routine) Status Reason Specialty Diagnoses / Referred By Referred To Procedures Contact Contact Pending Review Diagnoses Rib pain on left side Malaise and fatigue Pita Bailon MD [address] [place] [address] Reason for Visit Reason Comments Check Up Encounter Details Date Type Department Care Team Description 11/14/2018 Office Visit [facility] Waldo Bailon (Primary Dx); Practice Pita Hanley MD Rib pain on left side; [address] [place] [address] Malaise and fatigue; [place] [address] [place] [address] Memory problem [phone] Allergies Active Allergy Reactions Severity Noted Date Comments Penicillin G Dermatologic Reaction 09/08/2012 Makes palms itch documented as of this encounter (statuses as of 11/14/2018) Medications Medication Sig Dispensed Refills Start Date End Date Status fluticasone (FLONASE) [place] 2 Sprays in 0 Active 50 MCG/ACT Nasal nose DAILY. Suspension azelastine (ASTELIN) [place] 1 [place] in 0 Active 137 MCG/SPRAY Nasal nose [...] as of this encounter (statuses as of 11/14/2018) Active Problems Problem Noted Date Mixed hyperlipidemia 03/22/2017 Nasal dryness 01/26/2013 JERRICA (obstructive sleep apnea) 09/08/2012 Overview: [facility]) 09/08/2012 documented as of this encounter (statuses as of 11/14/2018) Immunizations Name Administration Dates Next Due Influenza [...] Sign Reading Time Taken Comments Blood Pressure 140/80 11/14/2018 2:33 PM EDT Pulse 78 11/14/2018 2:33 PM EDT Temperature 36.9 11/14/2018 2:33 PM EDT C (98.5 F) Respiratory Rate - - Oxygen Saturation 94% 11/14/2018 2:33 PM EDT Inhaled Oxygen Concentration - - Weight 86.6 kg (191 lb) 11/14/2018 2:33 PM EDT Height 154.9 cm (5' 1") 11/14/2018 2:33 PM EDT Body Mass Index 36.09 11/14/2018 2:33 PM EDT documented in this encounter Patient Instructions Patient InstructionsPita Bailon MD - 11/14/2018 2:00 PM EDTI recommend you get a hospital bed that allows you to elevate your head, get the pressure off your ribs. It may also help you get out of bed more often on your own. Take tylenol as needed for pain I ordered a urinalysis for your confusion. I will refer you to neurology for your memory concerns when/if you are ready. documented in this encounter Progress Notes Pita Bailon MD - 11/14/2018 2:00 PM EDT There are no exam notes on file for this visit. Chief Complaint: Veronique Coyle is a 88-y.o. female who presents for not feeling well Unscheduled visit, came on wrong day History of Present Illness/ROS: Here for memory issues, seemed forgetful. She says it is due to her lef ttrib pain the last 2 months. She cannot get herself out of bed she says due to pain. Staff has to come in to help her. Her bed is flat, head does not raise. Denies dysuria and unable to give us a urine sample Review of Systems - General ROS: negative for - chills or fever Psychological ROS: negative for - depression Respiratory ROS: no cough, shortness of breath, or wheezing Cardiovascular ROS: negative for - chest pain Gastrointestinal ROS: positive for - intermittent chronic abdominal pain negative for - blood in stools or change in bowel habits Musculoskeletal ROS: positive for - pain in left lower ribs Past Medical History: Diagnosis Date Breast cancer (HCC) s/p chemotherapy &mastectomy Breast cancer (HCC) 2001 right mastectomy in [place], had chemotherapy after at [facility]. 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 No | BMI36.09 kg/m Physical Examination: General appearance - alert, well appearing, and in no distress Mental status - alert, oriented to person, place, and time, normal mood, behavior, speech, dress, motor activity, and thought processes Eyes - pupils equal, sclera anicteric Ears - bilateral TM's and external ear canals normal Neck - supple, no cervical or supraclavicular [...] Abdomen - soft, non tender on palpation, nondistended, no masses or hepatosplenomegaly, bowel soundsnormal, normal to percussion, no guarding or rebound. No costervertebral angle tenderness Neurological - alert, oriented, normal speech, no gross focal findings or movement disorder noted Extremities - dorsalis pedis pulses normal, no pedal edema ASSESSMENT/PLAN: ICD-9-CM ICD-10-CM 1. Confusion 298.9 R41.0 URINALYSIS (LAB) WITH REFLEX CULTURE 2. Rib pain on left side 786.50 R07.81 [facility] BED (AMB) 3. Malaise and fatigue 780.79 R53.81 [facility] BED (AMB) R53.83 4. Memory problem 780.93 R41.3 CANCELED: REFER TO NEUROLOGY She agrees to have [facility] send out a ua when she can give a sample. Hospital bed ordered so she can raise her head She declines neurology referral at this time Patient Instructions I recommend you get a hospital bed that allows you to elevate your head, get the pressure off your ribs. It may also help you get out of bed more often on your own. Take tylenol as needed for pain I ordered a urinalysis for your confusion. I will refer you to neurology for your memory concerns when/if you are ready. Author: Pita Bailon MD 11/14/2018 19:13 documented in this encounter Plan of Treatment Date Type Specialty Care Team Description 01/16/2019 [facility] Visit [facility] Pita Bailon MD [address] [place] [address] [phone] Name Type Priority Associated Diagnoses Order Schedule URINALYSIS (LAB) WITH Lab Routine Confusion Expected: 11/14/2018 REFLEX CULTURE (Approximate), Expires: 05/13/2019 Name Type Priority Associated Diagnoses Order Schedule DME HOSPITAL BED (AMB) Referral Routine Rib pain on left side Ordered: 11/14/2018 Malaise and fatigue Health Maintenance Due Date Last Done Comments MEDICARE ANNUAL WELLNESS VISIT 1930 ZOSTER IMMUNIZATION SERIES (1 1981 of 2) PNEUMOCOCCAL 65+YRS (1 of 2 - 02/03/1996 PCV13) INFLUENZA VACCINE (#1) 2018 11/15/2017 DEPRESSION SCREENING 09/07/2019 09/06/2018 FALL RISK ASSESSMENT [...] This is an individualized lifestyle goal for Veronique Coyle: Please maintain a regular sleep schedule. This may help with some symptoms of depression. Take all prescribed medications as Self-management No Katie Saez RN directed Note: This is an individualized self-management goal for Veroniquezaid Coyle: Please take all prescribed medications as [...] filedocumented in this encounter Visit Diagnoses Diagnosis Confusion - Primary Unspecified psychosis Rib pain on left side Chest pain, unspecified Malaise and fatigue Other malaise and fatigue Memory problem Memory loss documented in this encounter Insurance Payer Benefit Plan / Subscriber ID Effective Dates Phone Address Type Group MEDICARE MEDICARE PART xxxxxxxxxx 1997-[facility] Blue t Cross/Blue Shield Guarantor Name Account Type Relation to Date of Phone Billing Patient Address Veronique Coyle Personal/Family 1930 [phone] (Home) [address] [phone] [place], [place] (Work) [address] documented as of this encounter
[2018-11-29 16:13] LABS: Troponin I 0.03 ng/mL (<0.04)
[2018-11-29 16:20] LABS: Albumin 3.7 g/dL (3.2-5.2); Albumin/Globulin Ratio 1.1 (1-3); BUN/Creatinine Ratio 23.1 (8-20); Calcium 11.1 mg/dL (8.6-10.3); EGFR African American 46.9 (>60); EGFR Non-African American 38.7 (>60); Globulin 3.4 g/dL (2-4); Potassium 3.8 mmol/L (3.5-5.0); Total Bilirubin 0.6 mg/dL (0.2-1.0); Total Protein 7.1 g/dL (6.4-8.9)
[2018-11-29 16:54] VITALS: BP 180/90
== END 2018-11-29 16:52 | disposition home or self-care (01) ==
LOC: ED 15:09
DX: R07.89 Other chest pain (principal); E78.00 Pure hypercholesterolemia, unspecified; I10 Essential (primary) hypertension; Z88.0 Allergy status to penicillin; Z85.3 Personal history of malignant neoplasm of breast
CPT/HCPCS: 36415; 71045; 80053; 84484; 85025; 99282

== ENCOUNTER 2018-12-20 13:48 | Inpatient (IN) | payer MEDICARE, BC ==
--- OUTSIDE RECORDS SUMMARY | 2018-12-20 14:05 | XMS REPORT | Summary of Care ---
:1930 Author Organization [facility] Address [address] [place] [address] Care Team Providers Name Role Phone Pita Bailon MD Primary Care Provider Reason for Visit Reason Comments ER F/U pt presents in office for ER f/u [facility] 11/30/18 R side chest wall pain Encounter Details Date Type Department Care Team Description 12/05/2018 Office Visit [facility], Malaise and fatigue ( Primary Dx); Practice Pita Hanley MD Chest wall pain; [address] Major depressive disorder with single episode, in partial remission ([facility]); [place], [place] [id number] [place] [id number] Dementia without behavioral disturbance, unspecified dementia type ([facility]) [phone] Allergies Active Allergy Reactions Severity Noted Date Comments Penicillin G Dermatologic Reaction 09/08/2012 Makes palms itch documented as of this encounter (statuses as of 12/05/2018) Medications Medication Sig Dispensed Refills Start Date End Date Status polyethylene glycol Take 17 g by 289 g 1 12/07/2017 Active (MIRALAX) Oral mouth EVERY PowderIndications: OTHER DAY. Hx of constipation Mix with 8 oz of water white petrolatum 1 Appl by 453 g 0 03/09/2018 Active Apply externally Topical Ointment route DAILY. zinc oxide (DESITIN 1 Appl by 57 g 5 03/25/2018 Active RAPID RELIEF) 13 % Topical Apply externally route TWO CreamIndications: TIMES DAILY Perianal dermatitis NEEDED (perianal irritation). acetaminophen Take 2 Tabs 120 Tab 5 09/02/2018 Active (TYLENOL) 325 MG by mouth Oral Tab EVERY FOUR HOURS NEEDED (pain). azelastine Lawai 1 1 Bottle 2 11/24/2018 Active (ASTELIN) 0.1 % Lawai in Nasal Solution nose TWICE DAILY. fluticasone [place]ai 2 1 Bottle 2 11/24/2018 Active (FLONASE) 50 Sprays in MCG/ACT Nasal nose DAILY. Suspension fluoxetine 20 MG Take 1 Tab 30 Tab 2 12/05/2018 Active Oral by mouth TabIndications: DAILY. Major depressive disorder with single episode, in partial remission (HCC) donepezil (ARICEPT) Take 1 Tab 30 Tab 1 12/05/2018 Active 5 MG Oral by mouth TabIndications: EVERY Dementia without BEDTIME. behavioral disturbance, unspecified dementia type (HCC) fluoxetine (PROZAC) Take 1 Tab 90 Tab 3 04/19/2018 Discontinued 10 MG Oral Tab by mouth 9 (Dose Adjustment) DAILY. documented as of this encounter (statuses as of 12/05/2018) Active Problems Problem Noted Date Mixed hyperlipidemia 03/22/2017 Nasal dryness 01/26/2013 JERRICA (obstructive sleep apnea) 09/08/2012 Overview: Patient has CPAP @ 10 cm through [place] Patient- [place] SOB (shortness of breath) 09/08/2012 documented as of this encounter (statuses as of 12/05/2018) Immunizations Name Administration Dates Next Due Influenza [...] Sign Reading Time Taken Comments Blood Pressure 140/68 12/05/2018 11:55 AM EDT Pulse 75 12/05/2018 11:55 AM EDT Temperature - - Respiratory Rate - - Oxygen Saturation 94% 12/05/2018 11:55 AM EDT Inhaled Oxygen Concentration - - Weight 70.3 kg (155 lb) 12/05/2018 11:55 AM EDT Height 154.9 cm (5' 1") 12/05/2018 11:55 AM EDT Body Mass Index 29.29 12/05/2018 11:55 AM EDT documented in this encounter Patient Instructions Patient InstructionsPita Bailon MD - 12/05/2018 11:20 AM Jelly did poorly on your memory exam, so appear to have some early dementia. Please start Aricept, Donepezil 5 mg in the evening. Can cause nausea, call if this is a problem. Increase Fluoxetine to 20 mg daily for depression We are checking on your neurology referral. Get out of bed, the pressure lying is hurting your ribs. documented in this encounter Progress Notes Pita Bailon MD - 12/05/2018 11:20 AM EDT Nursing Notes: Letty Recinos 12/05/2018 11:58 AM Signed Chief Complaint Patient presents with ER F/U pt presents in office for ER f/u [facility] 11/30/18 R side chest wall pain Letty Grisel Here with friend Jose. Review of the hospitalization: I am seeing for transition of care following Emergency Room/Urgent care evaluation at [facility]. The date of emergency room visit was 11/29/18 I reviewed the emergency room note, discharge instructions, and pertinent additional documentation obtained during the visit. I reconciled the medications. chest xray negative, BMP and CBC negative/normal The tests that were not available at the time of discharge were reviewed. Additional tests which are not yet available include: None Her confusion and memory lapses continue. She is not getting out of bed, missing meals, abou 2/day She has had more confusion, misses meals. [place] sent a fax last week asking if she needs a higher level of care. Yes, She needs a higher level of care. Patient Active Problem List Diagnosis JERRICA (obstructive sleep apnea) SOB (shortness of breath) Nasal dryness Mixed hyperlipidemia Past Medical History: Diagnosis Date Breast cancer (HCC) s/p chemotherapy &mastectomy Breast cancer (HCC) 2001 [place]astectomy [place], had chemotherapy after at [facility]. Chronic kidney disease nephritis age 20 Depression Edema of both legs Essential (primary) hypertension Fibromyalgia Fibromyalgia History of PFTs 2012 mild obstruction Hyperlipidemia Hyperlipidemia JERRICA (obstructive sleep apnea) Uterine prolapse Past Surgical History: Procedure Laterality Date APPENDECTOMY 01/22/2018 cystadenoma MASTECTOMY 2006 right REPAIR INITIAL INGUINAL HERNIA, 1937-38 TONSILLECTOMY Outpatient Medications as of 12/05/2018 Medication Sig Dispense Refill acetaminophen (TYLENOL) 325 MG Oral Tab Take 2 Tabs by mouth EVERY FOUR HOURS NEEDED (pain). 120 Tab 5 azelastine (ASTELIN) 0.1 % Nasal Solution Lawai 1 Lawai in nose TWICE DAILY. 1 Bottle 2 fluoxetine (PROZAC) 10 MG Oral Tab Take 1 Tab by mouth DAILY. 90 Tab 3 fluticasone (FLONASE) 50 MCG/ACT Nasal Suspension Lawai 2 Sprays in nose DAILY. 1 Bottle 2 polyethylene glycol (MIRALAX) Oral Powder Take 17 g by mouth EVERY OTHER DAY. Mix with 8 oz of water 289 g 1 white petrolatum Apply externally Ointment 1 Appl by Topical route DAILY. 453 g 0 zinc oxide (DESITIN RAPID RELIEF) 13 % Apply externally Cream 1 Appl by Topical route TWO TIMES DAILY NEEDED (perianal irritation). 57 g 5 No current facility-administered medications on file as of 12/05/2018. 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 [place] She now lives at [place] Family History Problem Relation Age of Onset Breast Cancer Mother Heart Disease Father Hypertension Father High Cholesterol Father Diabetes Paternal Grandmother No Known Problems Brother No Known Problems Son ROS Physical Examination: BP 140/68 (BP Location: Right arm, Patient Position: Sitting) | Pulse 75 | Ht 5' 1" (1.549 m) | Wt 155 lb (70.3 kg) | SpO2 94% | BMI 29.29 kg/m Physical Exam Physical Examination: General appearance - alert, well appearing, and in no distress Mental status - alert, oriented to person, place, and time, normal mood, behavior, speech, dress, motor activity, and thought processes Eyes - pupils equal, sclera anicteric Neck - supple, no cervical [...] - soft, non tender on palpation, nondistended No costervertebral angle tenderness Neurological - alert, oriented to place, not time/season, normal speech, walks with a walker, Extremities - dorsalis pedis pulses normal, no pedal edema MMSE score 11 Mini-Cog score: 0 Brain MRI 02/21/18: Impression: No evidence is seen of intra or extra axial hemorrhage, mass or vascular territory infarct. Cortical atrophy is prominent in scoliosis which can be due to small vessel ischemic disease with differential described in body of the report. No evidence of an acute infarct is seen at this time Urgency: Routine. This is a routine medical imaging report. Recommendation: No specific imaging recommendation. Lab Results Component Value Date TSH 4.52 09/06/2018 Results for VERONIQUE PEÑA ( ) as of 12/05/2018 12:55 Ref. Range 09/15/2017 15:58 Vitamin B12 Latest Ref Range: 239 - 931 pg/mL 632 Assessment/Plan: ICD-9-CM ICD-10-CM 1. Malaise and fatigue 780.79 R53.81 R53.83 2. Chest wall pain 786.52 R07.89 3. Major depressive disorder with single episode, in partial remission (HCC) 296.25 F32.4 [id number] MG Oral Tab 4. Dementia without behavioral disturbance, unspecified dementia type (HCC) 294.20 F03.90 donepezil (ARICEPT) 5 MG Oral Tab Coordination of care. - I am satisfied that appropriate referrals are in place to deal with the problems identified during the ER/Urgent care visit, and that the patient has adequate community resources and support in place. She has note heard about her neurology consult ordered last visit. We will call. She does appear to have significant dementia. Higher level of care is needed to get her up out of bed and dressed in the morning. Start Aricept for dementia. Increase fluoxetine to 20 mg daily. Keep appointment 12/17/18 for recheck I confirmed the patient's friend's understanding of the diagnosis and plan of care. The patient herself could not remember the plan. Specific education that was provided today: Patient Instructions You did poorly on your memory exam, so appear to have some early dementia. Please start Aricept, Donepezil 5 mg in the evening. Can cause nausea, call if this is a problem. Increase Fluoxetine to 20 mg daily for depression We are checking on your neurology referral. Get out of bed, the pressure lying is hurting your ribs. Author: Pita Bailon MD 12/05/2018 12:47 documented in this encounter Plan of Treatment Date Type Specialty Care Team Description 01/16/2019 Office Visit Family Practice Pita Bailon MD [address] [place] [address] [phone] Health Maintenance Due Date Last Done Comments [...] an individualized treatment (depression) goal for Veronique Peña: Displayed above is your goal for a depression screening (PHQ-9) score that would indicate good control of your depression. Keep a regular sleep schedule Lifestyle No Katie Saez RN Note: This is an individualized lifestyle goal for Veronique Peña: Please maintain a regular sleep schedule. This may help with some symptoms of depression. Take all prescribed medications as Self-management No Katie Saez RN directed Note: This is an individualized self-management goal for Veronique Peña: Please take all prescribed medications as directed. [...] filedocumented in this encounter Visit Diagnoses Diagnosis Malaise and fatigue - Primary Other malaise and fatigue Chest wall pain Painful respiration Major depressive disorder with single episode, in partial remission (HCC) Dementia without behavioral disturbance, unspecified dementia type (HCC) documented in this encounter Insurance Payer Benefit Plan / Subscriber ID Effective Dates Phone Address Type Group MEDICARE MEDICARE PART xxxxxxxxxx 1997-Presen Medicare A & B t [facility] NATIONAL xxxxxxxxxxxx 2000-[employer] Blue t Cross/Blue Shield Guarantor Name Account Type Relation to Date of Phone Billing Patient Address Veronique Peña Personal/Family 1930 [phone] [address] (Home) [employer] [phone] [place], [place] (Work) [address] documented as of this encounter
--- OUTSIDE RECORDS SUMMARY | 2018-12-20 14:05 | XMS REPORT | Continuity of Care Document ---
:1930 External Reference #:[id number] Author Name Laura Allen MD Address [address] [place] [address] Care Team Providers Name Role Phone Pita Bailon MD Care Team Information Ux Design Manager [phone] Problems Description No Information Available Social History Type Date Description Comments Sex Unknown Tobacco Use Start: Unknown Never Smoked Cigarettes ETOH Use Denies alcohol use Recreational Drug Use Denies Drug Use Exercise Type/Frequency Exercises regularly Allergies, Adverse Reactions, Alerts Description No Information Available Medications Description No Information Available Medications Administered in Office Medication SIG Qnty Indications Ordering Provider Date PT SCRN Tbco Id as Non User Laura Allen MD 12/14/2018 Injection Immunizations Description No Information Available Vital Signs Date Vital Result Comment 12/14/2018 2:36pm BP Systolic 144 mmHg BP Diastolic 72 mmHg 1 Parity 1 Results Description No Information Available Procedures Description No Information Available Medical Devices Description No Information Available Encounters Type Date Location Provider Dx Diagnosis Office Visit 12/14/2018 [facility] Office Laura Allen, N89.8 Other specified 3:00p noninflammatory disorders of vagina Assessments Date Code Description Provider 12/14/2018 N89.8 Other specified noninflammatory disorders of Laura Allen MD vagina Plan of Treatment 12/14/2018 - Laura Allen MDN89.8 Other specified noninflammatory disorders of vaginaComments:If the pt has a pessary it is very high in the vagina. In light of the fact that she has no sxms, Joe not think any further evaluation is warranted. She certainly does not need a pessary placed. Will f/u with PCP for BP management. Functional Status Description No Information Available Mental Status Description No Information Available Referrals Description No Information Available
--- NOTE | 2018-12-20 14:06 | ED ---
Altered Mental Status - HPI Summary HPI Summary: LEVEL 5 CAVEAT DUE TO INCREASED DEMENTIA AND HX DEMENTIA. This pt is an 88 y/o female presenting to [facility] via EMS from [place] for increased confusion. Pt has hx of dementia but per [facility] staff pt has been more confused lately. Staff also report that pt has not been wanting to get out of bed and is not eating well. She denies nausea. Pt has hx of left rib fractures from a fall 1 month ago. Pt's PCP called and stated pt is more than [facility] can handle. - History Of Current Complaint Stated Complaint: AMS PER EMS Hx Obtained From: Patient, EMS Timing: Lasting Days Severity Currently: Moderate Character: Confusion Aggravating Factor(s): Nothing Alleviating Factor(s): Nothing Associated Signs And Symptoms: Negative: Nausea, Fever - Allergies/Home Medications Allergies/Adverse Reactions: Allergies Allergy/AdvReac Type Severity Reaction Status Date / Time Penicillins Allergy Intermediate Itching Verified 12/20/18 14:27 Home Medications: Home Medications Acetaminophen TAB* [Tylenol TAB*] 650 mg PO BID 12/20/18 [History Confirmed 01/26] PMH/Surg Hx/FS Hx/Imm Hx Endocrine/Hematology History: Reports: Other Endocrine/Hematological Disorders - "overactive pancreas" Denies: Hx Anticoagulant Therapy, Hx Diabetes, Hx Thyroid Disease Cardiovascular History: Reports: Hx Angina, Hx Hypercholesterolemia, Hx Hypertension Denies: Hx Coronary Artery Disease, Hx Myocardial Infarction, Hx Pacemaker/ ICD, Hx Valvular Heart Disease Respiratory History: Reports: Hx Sleep Apnea - CPAP Denies: Hx Asthma, Hx Chronic Obstructive Pulmonary Disease (COPD), Other Respiratory Problems/Disorders GI History: Denies: Other GI Disorders History: Reports: Hx Kidney Infection - age 20 Denies: Hx Benign Prostatic Hyperplasia, Hx Chronic Renal Failure, Hx Dialysis, Hx Kidney Stones, Hx Renal Disease Musculoskeletal History: Reports: Hx Arthritis - knees, hands, feet, left frozen shoulder, Hx Fibromyalgia Denies: Other Musculoskeletal History Sensory History: Reports: Hx Contacts or Glasses - reading glasses, Hx Vision Problem Denies: Hx Hearing Aid Opthamlomology History: Reports: Hx Contacts or Glasses - reading glasses, Hx Vision Problem Neurological History: Reports: Other Neuro Impairments/Disorders - memory lapses , confusion in the past year Denies: Hx Dementia, Hx Seizures Psychiatric History: Reports: Hx Anxiety Denies: Hx Substance Abuse - Cancer History Cancer Type, Location and Year: breast ca - right masectomy, pessary,sleep apnea Hx Chemotherapy: Yes - Surgical History Surgical History: Yes Surgery Procedure, Year, and Place: hernia repair, age 6,. tonsillectomy, as a child. mastectomy right, 1990s. appendectomy and hernia, 2018 Hx Anesthesia Reactions: No Infectious Disease History: Denies: Hx Hepatitis, Hx Human Immunodeficiency Virus (HIV), Hx Shingles - Family History Known Family History: Positive: Hypertension Negative: Cardiac Disease, Diabetes - Social History Alcohol Use: None Alcohol Amount: social Hx Substance Use: No Substance Use Type: Reports: None Hx Tobacco Use: No Smoking Status (MU): Never Smoked Tobacco Review of Systems - ROS Summary Review of Systems Summary: ROS IS LIMITED DUE TO LEVEL 5 CAVEAT - increased confusion Constitutional: Other - POSITIVE: decreased PO intake Negative: Fever Negative: Nausea Neurological: Other - POSITIVE: increased confusion Positive: Weakness - generalized All Other Systems Reviewed And Are Negative: No Physical Exam - Summary Physical Exam Summary: Constitutional: Well-developed, Well-nourished, Alert. (-) Distressed Skin: Warm, Dry HENT: Normocephalic; Atraumatic Eyes: Conjunctiva normal, EOMI Neck: Musculoskeletal ROM normal neck. (-) JVD, (-) Stridor, (-) Tracheal deviation Cardio: Rhythm regular, rate normal, Heart sounds normal; Intact distal pulses; The pedal pulses are 2+ and symmetric. Radial pulses are 2+ and symmetric. (-) Murmur Pulmonary/Chest wall: Effort normal. (-) Respiratory distress, (-) Wheezes, (-) Rales Abd: Soft, (-) tenderness, (-) Distension, (-) Guarding, (-) Rebound Musculoskeletal: 2+ pitting edema in ankles bilaterally. Lymph: (-) Cervical adenopathy Neuro: Alert, Confused, Dysarthric, Moving all extremities x4, good sensation bilaterally, CN II-XII are intact GCS is 14. Psych: Mood and affect Normal Triage Information Reviewed: Yes Vital Signs On Initial Exam: Initial Vitals Temp Pulse Resp BP Pulse Ox 97.3 F 79 21 194/83 96 12/20/18 14:00 12/20/18 14:00 12/20/18 14:00 12/20/18 14:00 12/20/18 14:00 Vital Signs Reviewed: Yes Completion Of Physical Exam Limited Due To: Level 5 - increased confusion Procedures - Sedation Patient Received Moderate/Deep Sedation with Procedure: No Diagnostics - Laboratory Result Diagrams: 12/20/18 14:25 12/20/18 14:25 Lab Statement: Any lab studies that have been ordered have been reviewed, and results considered in the medical decision making process. - Radiology Chest X-Ray Radiology Interpretation Completed By: Radiologist Summary of Radiographic Findings: Per radiologist,. HYPERINFLATION. NO ACTIVE CARDIOPULMONARY DISEASE. ED physician has reviewed this imaging report. Altered Mental Statu Course/Dx - Course Course Of Treatment: LEVEL 5 CAVEAT DUE TO INCREASED DEMENTIA AND HX DEMENTIA. This pt is an 88 y/o female presenting to [facility] via EMS from [place] for increased confusion. Hx dementia but per [facility] staff pt has been more confused lately. Staff also report that pt has not been wanting to get out of bed and is not eating well. She denies nausea. Physical Exam reveals no abnormalities except for GCS 14, 2+ pitting edema in ankles bilaterally, confused, dysarthric. Bloodwork shows no abnormalities except for WBC 13.4 H, RBC 3.54 L, Hgb 11.1 L, Hct 33 L, RDW 16 H, INR 1.10 H, BUN 41 H, Creatinine 1.95 H, BUN/Creatinine Ratio 21.0 H, Glucose 159 H, AST 115 H, ALT 98 H, Alkaline Phosphatase 122 H, Troponin I 0.04 H, B-Natriuretic Peptide 583 H. C X -Ray reveals HYPERINFLATION. NO ACTIVE CARDIOPULMONARY DISEASE. We discussed patient care with Dr. Shepherd, hospitalist, who accepts patient for admission with diagnosis of CHF exacerbation and generalized weakness. Pt will be admitted and is agreeable with this plan. - Diagnoses Provider Diagnoses: CHF exacerbation, Generalized weakness - Provider Notifications Discussed Care Of Patient With: Isamar Shepherd - Hospitalist Time Discussed With Above Provider: 15:36 Instructed by Provider To: Admit As Inpatient Discharge ED - Sign-Out/Discharge Documenting (check all that apply): Patient Departure - admit - Discharge Plan Condition: Stable Disposition: ADMITTED TO [facility] - Billing Disposition and Condition Condition: STABLE Disposition: Admitted to [facility] - Attestation Statements Document Initiated by Scribe: Yes Documenting Scribe: Naina Huerta Provider For Whom Scribe is Documenting (Include Credential): Amelia Christine MD Scribe Attestation: I, Naina Huerta, scribed for Amelia Toscano MD on 12/20/18 at 2142. Scribe Documentation Reviewed: Yes Provider Attestation: The documentation as recorded by the scribe, Naina Huerta accurately reflects the service I personally performed and the decisions made by me, Amelia Toscano MD Status of Scribe Document: Viewed
[2018-12-20 14:45] LABS: Hematocrit 33 % (35-47); Hemoglobin 11.1 g/dL (12.0-16.0); Mean Corpuscular HGB Conc 33 g/dL (31-36); Mean Corpuscular Hemoglobin 31 pg (27-31); Mean Corpuscular Volume 94 fL (80-97); Mean Platelet Volume 8.9 fL (7.4-10.4); Platelet Count 173 10^3/uL (150-450); Red Blood Count 3.54 10^6 /uL (3.70-4.87); Red Cell Distribution Width 16 % (10-15); White Blood Count 13.4 10^3/uL (3.5-10.8)
[2018-12-20 14:55] LABS: Activated Partial Thrombo Time 31.2 seconds (26.0-38.0); INR 1.1 (0.82-1.09)
[2018-12-20 15:06] LABS: ALT 98 U/L (7-52); AST 115 U/L (13-39); Alkaline Phosphatase 122 U/L (34-104); Anion Gap 8 mmol/L (2-11); Blood Urea Nitrogen 41 mg/dL (6-24); CO2 Carbon Dioxide 32 mmol/L (22-32); Chloride 102 mmol/L (101-111); EGFR African American 29.4 (>60); EGFR Non-African American 24.3 (>60); Globulin 3.9 g/dL (2-4); Glucose 159 mg/dL (70-100); Potassium 3.6 mmol/L (3.5-5.0); Sodium 142 mmol/L (135-145); Total Protein 7.9 g/dL (6.4-8.9)
[2018-12-20 15:09] LABS: Troponin I 0.04 ng/mL (<0.04)
[2018-12-20] MEDS ORDERED: Furosemide IV* 10 MG/ML 2 ML VIAL (20 MG) IV ONE (15:34)
[2018-12-20 16:11] LABS: Calcium 15.2 mg/dL (8.6-10.3)
[2018-12-20 16:29] LABS: ABS Basophils 0.1 10^3/ul (0-0.2); ABS Lymphocytes 1.4 10^3/ul (1.0-4.8); ABS Monocytes 0.8 10^3/ul (0-0.8); ABS Neutrophils 11.1 10^3/ul (1.5-7.7); Eosinophil % 0.3 %; Lymphocyte % 10.5 %; Nucleated Red Blood Cells % 0.1
[2018-12-20] MEDS ORDERED: NS 0.9% 1000 ML** 1,000 ML IV ONE (16:44)
[2018-12-20 17:16] LABS: Magnesium 2.2 mg/dL (1.9-2.7); Phosphorus 5.1 mg/dL (2.5-5.0)
[2018-12-20 17:43] LABS: Urine Appearance Cloudy; Urine Bilirubin Negative (Negative); Urine Blood Negative (Negative); Urine Color Yellow; Urine Glucose Negative (Negative); Urine Ketones Negative (Negative); Urine Nitrite Negative (Negative); Urine Protein Negative (Negative); Urine Specific Gravity 1.014 (1.010-1.030); Urine Urobilinogen Negative (Negative)
[2018-12-20 17:48] LABS: Influenza A Molecular NEGATIVE (Negative); Influenza B Molecular NEGATIVE (Negative)
[2018-12-20] MEDS: Calcitonin (Salmon) INJ* 200 UNITS/ML 2 ML VIAL SUBCUT SCH (17:50)
[2018-12-20 17:53] LABS: Troponin I 0.04 ng/mL (<0.04)
[2018-12-20 18:02] LABS: TSH (Thyroid Stimulating Horm) 3.36 mcIU/mL (0.34-5.60)
[2018-12-20 18:15] LABS: Vitamin D Total 25(OH) 23.8 ng/mL (20-50)
[2018-12-20] MEDS: Enoxaparin(*) 30 MG/0.3 ML SYR SUBCUT SCH (19:15)
[2018-12-20] MEDS: Acetaminophen TAB* 325 MG PO PRN (19:48)
[2018-12-20 21:08] LABS: Troponin I 0.04 ng/mL (<0.04)
--- NOTE | 2018-12-20 23:26 | HP ---
CC: Dr. Bailon * HISTORY AND PHYSICAL: DATE OF ADMISSION: 12/20/18 PROVIDER: Jacquelyn Boggs NP. PRIMARY CARE PHYSICIAN: Dr. Bailon. ATTENDING PHYSICIAN WHILE IN THE HOSPITAL: Dr. Isamar Shepherd * (dictated by Jacquelyn Boggs NP). CHIEF COMPLAINT: 1. Weakness. 2. Confusion. HISTORY OF PRESENT ILLNESS: Ms. Coyle is an 88-year-old female with a past medical history significant for right breast cancer; status post mastectomy and chemotherapy, history of sleep apnea, depression, obesity, fibromyalgia, and history of headaches who presented to the emergency room with complaints of confusion and increased weakness. The patient is lethargic, resting on the stretcher in the emergency room. She does responds minimally to questions with a soft voice, yes and no answers only, and unable to stay awake during interview. History of present illness was obtained from a friend who was in the room. The friend reports that the patient has had increasing confusion and weakness over the past 2 months. She reports approximately 2 months ago, the patient was walking with a cane unassisted and was able to carry on conversations without difficulty. She does report the patient had an appointment with her doctor last week, did not know why she was at the appointment or how she got there. She also followed up with her primary care provider within the last month. She was unable to complete tasks that she would not normally be able to do. She was unable to remember words when given. She could only place half of the numbers on the clock when asked to draw a clock. The friend also reports that she was recently moved from the 4th floor to the 3rd floor due to needing more help. The patient reports that after she was moved to the 3rd floor her confusion became progressively worse. She also reports she has been incontinent of stool x1 year. Due to progressively worsening weakness and confusion, decreased appetite, the patient was sent to the emergency room for further evaluation. Friend also reports that approximately 2 months ago the patient rolled over in bed and broke her ribs, reports since then the patient has not wanted to get out bed due to the pain she has with movement. While in the emergency room, the patient had routine lab work drawn. She was found to have hypercalcemia with a calcium level of 5.2 and an ionized calcium of 1.79. Her urine was within normal limits, but due to her increased confusion , lethargy, and weakness, hospital medicine has been asked to see and evaluate her for admission. PAST MEDICAL HISTORY: 1. Significant for right breast cancer, status post mastectomy and chemo. 2. History of sleep apnea, on CPAP. 3. Depression. 4. Obesity. 5. Headache. 6. Fibromyalgia. PAST SURGICAL HISTORY: 1. Right mastectomy in 1999. 2. Small-bowel resection. 3. Umbilical hernia repair. 4. Tonsillectomy. 5. Right inguinal hernia repair, this was obtained from her old medical records. MEDICATIONS: Home medications were obtained from her home medication list. 1. Ibuprofen 400 mg p.o. q.6 hours as needed. 2. Acetaminophen 650 mg p.o. b.i.d. 3. MiraLAX 17 g p.o. every other day. 4. Fluoxetine 10 mg p.o. daily. 5. Fluticasone 2 sprays to both nares p.r.n. 6. Astepro 2 sprays to both nares p.r.n. ALLERGIES: PENICILLINS. FAMILY HISTORY: Unable to obtain family history due to the patient's altered mental status and unable to participate and answer questions. SOCIAL HISTORY: Was obtained from her friend. She denies any tobacco, alcohol , or illicit drug use. The patient currently lives at [facility]. She has been for a long time. Surrogate decision maker in the event she is unable to make her own decisions is her son who lives in [place]. Code status is unknown. We get code status from [place], no record present on the chart. Computer states DNR and friend reports that same. REVIEW OF SYSTEMS: The patient nods her head "no" when asked if she has chest pain or shortness of breath, cough. She nods her head "no" with pain with urination. Unable to complete full review of systems as the patient is unable to participate actively in answering questions. PHYSICAL EXAMINATION GENERAL: At this time, Ms. Coyle is an 88-year-old female. She is lethargic , but arouses to verbal stimuli. Resting on the stretcher in the emergency room. She does not appear to be in any acute distress. Appears frail. VITAL SIGNS: Blood pressure 148/79, heart rate 89, respirations are 22, O2 saturation 93%, temperature is 97.5. HEENT: Head is atraumatic and normocephalic. Eyes: EOMs are intact. Sclerae anicteric and not pale. Oral mucosa are dry. NECK: Supple. LUNGS: Clear to auscultation bilaterally. No wheezes, rales, or rhonchi. CARDIAC: S1 and S2. Regular rate and rhythm. No murmurs, rubs, or gallops. ABDOMEN: Soft and nontender. Bowel sounds are present x4. EXTREMITIES: She is able to move all 4 extremities. There is no clubbing or cyanosis. Pedal pulses are +1 bilaterally. NEUROLOGIC: She is lethargic, does respond to name, answers minimal yes and no questions. Does attempt to assist when asked to roll to her side. She does not have any facial asymmetry. Her speech is soft. SKIN: Intact. LABORATORY DATA AND DIAGNOSTIC STUDIES: WBCs are 13.5, RBCs 4.54, hemoglobin 11.1, hematocrit 33, platelet count 173. INR 1.10. Sodium 142, potassium 3.6, chloride 102, carbon dioxide was 32, anion gap was 8, BUN was 41, creatinine 1.95, glucose was 159, calcium 15.2, ionized calcium 1.79, phosphorous 5.1, magnesium 2.2. ASTs were 115, ALTs were 98, alkaline phosphatase was 122. Troponin was 0.04 x3, BNP was 583. TSH was 3.36. Vitamin D was 23.8. PTH was 17.2 and calcium PTH intact was 15.2. Urine was within normal limits. Flu A and B were negative. She had a chest x-ray that showed hyperinflation. No active cardiopulmonary disease. She had an electrocardiogram which showed sinus rhythm at a rate of 66. T-wave inversions in lead III which appears to be consistent with prior EKG. Slight ST elevation in lead I. ASSESSMENT AND PLAN: Ms. Coyle is an 88-year-old female who was brought to the emergency room for increased weakness and confusion and found to have a calcium of 15.2. She will be admitted inpatient for: 1. Hypercalcemia. I suspect her hypercalcemia could be contributing to her increased confusion and weakness as well as decreased appetite and lethargy. The patient will receive normal saline a liter bolus. I will continue her on normal saline at 150 cc per hour. I will repeat a BMP in the a.m. She will also receive calcitonin 300 units subcu q.12 hours x 2 doses. Should her calcium not improve, I would recommend workup for multiple myeloma and possible consultation to Endocrine as needed. Patient does have a recent history of non traumatic ribs fractures, so multiple myeloma is high in the differential. At this time I suspect that her hypercalcemia at this time could be related to underlying dehydration as the patient has had decreased p.o. intake and appears to be dry. 2. Elevated troponin. The patient has an elevated troponin of 0.04. This has remained flat. This could be related to her worsening renal function. The patient does not note any chest pain. Her EKG is without any significant ST depressions or elevations. I suspect that this is related to demand ischemia. I will get a transthoracic echocardiogram tomorrow to rule out any wall abnormality or valvular dysfunction. 3. Acute kidney injury. The patient does have chronic kidney disease, but has worsening kidney disease at this time and again, I suspect this is related to dehydration. We will give her IV hydration overnight and repeat a BMP in the a.m. 4. Leukocytosis. The patient does have leukocytosis with a white count of 13.4. She is afebrile. Her chest x-ray is without signs of infection. She also has a urine that is within normal limits with no signs of infection. At this time, I will hold off on placing the patient on antibiotics as she does not have a clear source of infection at this time. 5. Depression. Will continue Paxil as previously prescribed. 6. DVT prophylaxis. I will place her on Lovenox subcu. 7. Code status. Code status is unknown. Friend reports DNR. I will obtain records from [place] to confirm. 8. FEN. I will place her on clear liquid diet. She can eat when she is awake enough to eat. 9. Disposition. The patient will be placed inpatient. The patient may require intermediate discharge planning if her confusion and weakness does not improve. TIME SPENT: Time spent on this admission was 60 minutes. Greater than half that time was spent at the bedside reviewing the events leading thus far to her hospitalization, performing physical exam, and reviewing my plan of care. I have discussed this with my attending, Dr. Isamar Shepherd. She is in agreement with my plan. JACQUELYN BOGGS, RECREATION SUPERINTENDENT [id number]/[facility] #: [id number] K[facility]OCKER HOSPITALKimi
[2018-12-21] MEDS: NS 0.9% 1000 ML** 1,000 ML IV SCH (00:46)
[2018-12-21] MEDS: Calcitonin (Salmon) INJ* 200 UNITS/ML 2 ML VIAL SUBCUT SCH (05:26)
[2018-12-21] MEDS: Acetaminophen TAB* 325 MG PO PRN (08:15)
[2018-12-21 08:33] LABS: Hematocrit 30 % (35-47); Hemoglobin 9.9 g/dL (12.0-16.0); Mean Corpuscular HGB Conc 33 g/dL (31-36); Mean Corpuscular Hemoglobin 31 pg (27-31); Mean Corpuscular Volume 94 fL (80-97); Mean Platelet Volume 8.8 fL (7.4-10.4); Platelet Count 155 10^3/uL (150-450); Red Blood Count 3.14 10^6 /uL (3.70-4.87); Red Cell Distribution Width 16 % (10-15); White Blood Count 15.8 10^3/uL (3.5-10.8)
[2018-12-21 08:46] LABS: INR 1.21 (0.82-1.09)
[2018-12-21 08:50] LABS: BUN/Creatinine Ratio 21.7 (8-20); Calcium 12.1 mg/dL (8.6-10.3); EGFR African American 33.3 (>60); EGFR Non-African American 27.5 (>60); HDL Cholesterol 38.8 mg/dL; Potassium 3.4 mmol/L (3.5-5.0)
[2018-12-21 09:07] LABS: Albumin 3.6 g/dL (3.2-5.2); Albumin/Globulin Ratio 1.1 (1-3); Globulin 3.3 g/dL (2-4); Total Bilirubin 0.6 mg/dL (0.2-1.0); Total Protein 6.9 g/dL (6.4-8.9)
--- NOTE | 2018-12-21 09:15 | ECHO ---
*[facility]* [place] [address] Fax #: [phone] Transthoracic Echocardiogram Patient: Veronique Coyle : 1930 Study Date: 12/21/2018 Age: 88 Gender: F HR: 85 bpm Height: 65 in /165.1 cm BSA: 1.89 m^2 Weight: 179.6 lb /81.6 kg BMI: 30 kg/m^2 *Community Administrator: Jennifer Allen [facility] *Referring Physician: * Marta Boggs *Reading Physician: * Anai Samayoa MD Indications: Abnormal EKG. History: The patient has a history of breast malignancy. Risk factors: Dyslipidemia. Conclusions Summary: - Left ventricle: The cavity size is mildly reduced. Wall thickness is moderately increased. Systolic function is hyperdynamic. The estimated ejection fraction is 65-70%. Doppler parameters are consistent with abnormal left ventricular relaxation (grade 1 diastolic dysfunction). - Right ventricle: Systolic function is normal. - Left atrium: The atrium is moderately to severely dilated. - Mitral valve: The Mitral valve annulus appears calcified. The leaflets are mildly thickened. There is mild regurgitation. - Aortic valve: The findings are consistent with mild stenosis. The mean systolic gradient is 10.0 mm Hg. The LVOT to aortic valve VTI ratio is 0.5. The valve area by the velocity-time integral method is 1.60 cm^2. - Compared with prior echocardiogram of 02/04/12, left ventricular hypertrophy has progressed, ejection fraction previously 55-60%, mitral regurgitation has inproved from moderate, mild is new, prevoiusly pulmonary artery presure elevated at 43 mmHg, unable to measure on this study to compare. Study data: Transthoracic echocardiogram. Procedure: Transthoracic echocardiography was performed. Image quality was fair. The study was technically limited due to poor patient compliance. Complete 2D, spectral Doppler, and color flow Doppler. Location: Bedside. Patient status: Inpatient. Patient room number: 448. Rhythm: Normal sinus rhythm with PVC's. Findings Left ventricle: The cavity size is mildly reduced. Wall thickness is moderately increased. Systolic function is hyperdynamic. The estimated ejection fraction is 65-70%. Wall motion is normal; there are no regional wall motion abnormalities. Doppler parameters are consistent with abnormal left ventricular relaxation (grade 1 diastolic dysfunction). Right ventricle: The cavity size is normal. Systolic function is normal. Ventricular septum: The outflow septum has a sigmoid appearance. Left atrium: The atrium is moderately to severely dilated. Right atrium: The atrium is normal in size. Mitral valve: The Mitral valve annulus appears calcified. The leaflets are mildly thickened. There is no evidence of stenosis. There is mild regurgitation. Aortic valve: The valve is trileaflet. The leaflets are moderately thickened and mildly calcified. Cusp separation is mildly reduced. The findings are consistent with mild stenosis. There is no significant regurgitation. Tricuspid valve: The leaflets are normal thickness. There is no evidence of stenosis. There is no significant regurgitation. Pulmonic valve: Not well visualized. There is no significant regurgitation. Aorta: The aortic root appears normal. The aortic arch appears normal. Pericardium: There is no significant pericardial effusion. Pulmonary arteries: Not well visualized. Systolic pressure can not be accurately estimated. Systemic veins: Inferior vena cava: The vessel is dilated. There is (< 50%) respiratory change in the IVC dimension. Measurements Left ventricle Value Ref Aortic valve Value Ref CARMELITA, LAX (L) 3.4 cm 3.8 - 5.2 Edwina diam, ED 1.9 cm ---- ESD, LAX (L) 2.0 cm 2.2 - 3.5 Peak v, S 2.3 m/sec ---- FS, LAX 41 % 27 - 45 VTI, S 47.0 cm ---- PW, ED, LAX (H) 1.3 cm 0.6 - 0.9 Accel time 77 ms ---- EF 73 % 54 - 74 Mean grad, S 10.0 mm Hg ---- E', lat edwina, TDI (L) 8.3 cm/sec >=10.0 Peak grad, S 21.0 mm Hg -- -- E/e', lat edwina, 12 LVOT/AV, VTI ratio 0.5 ---- TDI SERJIO, VTI 1.60 cm^2 ---- E', med edwina, TDI (L) 6.0 cm/sec >=7.0 SERJIO, Vmax 1.60 cm^2 -- -- E/e', med edwina, 16 TDI Mitral valve Value Ref E', avg, TDI 7.2 cm/sec Peak E 0.96 m/sec ---- E/e', avg, TDI 13 <=14 Peak A 1.36 m/sec -- -- Decel time 116 ms ---- LVOT Value Ref PHT 78 ms ---- Diam, S 2.00 cm Mean grad, D 4.0 mm Hg ---- Area 3.1 cm^2 Peak grad, D 8.0 mm Hg ---- Peak salvador, S 1.2 m/sec Peak E/A ratio 0.7 ---- VTI, S 24.0 cm MVA, PHT 2.8 cm^2 ---- Peak grad, S 6 mm Hg Mean grad, S 3 mm Hg Pulmonic valve Value Ref SV 76 ml Peak v, S 0.74 m/sec ---- Peak grad, S 2.0 mm Hg ---- Ventricular septum Value Ref IVS, ED (H) 1.6 cm 0.6 - 0.9 Aortic root Value Ref Root diam 2.9 cm <4.1 Right ventricle Value Ref CARMELITA, LAX 2.2 cm Ascending aorta Value Ref CARMELITA minor ax, A4C (L) 1.8 cm 1.9 - 3.5 AAo AP diam, S 2.8 cm ---- mid Aortic arch Value Ref Left atrium Value Ref Arch diam 2.3 cm ---- AP dim, ES (H) 4.50 cm 2.70 - 3.80 Decending aorta Value Ref ML dim, A4C 4.6 cm Alexis peak salvador 0.77 m/sec ---- SI dim, A4C 7.6 cm Vol/bsa, ES, A/L (H) 54 ml/m^2 16 - 34 Inferior vena cava Value Ref Diam 2.8 cm ---- Right atrium Value Ref SI dim, ES (H) 5.4 cm 3.4 - 5.3 ML dim, ES, A4C 2.7 cm 2.6 - 4.4 Estimated RAP 8 mm Hg Legend: (L) and (H) sebas values outside specified reference range. Prepared and electronically signed by Anai Samayoa MD 12/21/2018 09:14
[2018-12-21 09:17] LABS: ABS Basophils 0.1 10^3/ul (0-0.2); ABS Lymphocytes 1.6 10^3/ul (1.0-4.8); ABS Monocytes 1.1 10^3/ul (0-0.8); Eosinophil % 0.1 %; Lymphocyte % 10.4 %; Nucleated Red Blood Cells % 0.2
[2018-12-21] MEDS: Morphine INJ* 2 MG/ML 1 ML SYRINGE (TWO MG - NEW SYRINGE VERSION) IV PRN ×2 (11:40→23:40)
--- NOTE | 2018-12-21 17:38 | PN ---
Subjective Date of Service: 12/21/18 Interval History: HD 2 on 12/21 88 y/o F with h/o Right breast cancer(s/p mastectomy and chemo), JERRICA, Obesity, Depression, fibromyalgia, Dementtai presented with worsening confusion and weakness for 2 month associated with lethargy and loss of appetite. Found to have hypercalcemia with leucocytosis and elevated troponin. Patient is poor historian. has pain and moans. pain all over body Objective Active Medications: Acetaminophen (Tylenol Tab*) 650 mg PO Q4H PRN PRN Reason: MILD PAIN or TEMP > 100.4 Last Admin: 12/21/18 08:15 Dose: 650 mg Enoxaparin Sodium (Lovenox(*)) 30 mg SUBCUT Q24H [facility] Last Admin: 12/20/18 19:15 Dose: 30 mg Sodium Chloride (Ns 0.9% 1000 Ml) 1,000 mls @ 150 mls/hr IV PER RATE [facility] Last Admin: 12/21/18 00:46 Dose: 150 mls/hr Morphine Sulfate (Morphine Inj (Syringe))*) 1 mg IV Q4H PRN PRN Reason: PAIN - SEVERE Last Admin: 12/21/18 11:40 Dose: 1 mg Vital Signs - 8 hr 12/21/18 12/21/18 11:40 12:56 Temperature 98 F Pulse Rate 86 Respiratory 20 16 Rate Blood Pressure 156/83 (mmHg) O2 Sat by Pulse 92 Oximetry Oxygen Devices in Use Now: None Exam: Patien is lying on abed with no acute distress. HEENT- Normocephalic and atraumatic. Dry eyes Neck- Nonmobile nodule felt on left side of neck Lungs- clear with no added sounds Heart; S1/S2 heard with no murmur appreciated Abdomen: Soft, nondistended and nontender. Normal BS heard Extremities: Tenderness on both lower extremity Neuro- Oriented to self Result Diagrams: 12/21/18 08:25 12/21/18 08:25 Assess/Plan/Problems-Billing Assessment: 88 y/o F with h/o Right breast cancer(s/p mastectomy and chemo), JERRICA, Obesity, Depression, fibromyalgia, Dementtai presented with worsening confusion and weakness for 2 month associated with lethargy and loss of appetite. Found to have hypercalcemia with leucocytosis and elevated troponin. - Patient Problems (1) Hypercalcemia Current Visit: Yes Status: Acute Code(s): E83.52 - HYPERCALCEMIA SNOMED Code(s): 98151422 Comment: -contributing to confusion -serum calcium of 15 on presentation - PTH normal, Vitamin D normal -D/D- multiple myeloma, metastatic CA(recurrent breast ca or lung), immobilization with dehydration -Given her pain, anemia and kidney failure-most likely MM - We will send spep, upep, light chains, bone survey and PTHrP -May need CT of chest/abd/pelvis -On IVF and pain management -received calcitonin (2) Acute kidney injury Current Visit: Yes Status: Acute Code(s): N17.9 - ACUTE KIDNEY FAILURE, UNSPECIFIED SNOMED Code(s): 88289301 Comment: -could be from dehydration form poor intake or from MM -FLuids for now. -bllod and urine workup sent (3) Heart failure with preserved ejection fraction Current Visit: Yes Status: Acute Code(s): I50.30 - UNSPECIFIED DIASTOLIC ( CONGESTIVE) HEART FAILURE SNOMED Code(s): 469391484 Comment: -has elevated trops- downtrended -elevated BNP; ECG shows t inversion in V1 and III -ECHo shows EF of 65-70% with diastolic dysfxn, sever LA dilation with Mild MR and -could start lasix and lisinopril on discharge or after her calcium level comes to normal (4) Dementia Current Visit: Yes Status: Acute Code(s): F03.90 - UNSPECIFIED DEMENTIA WITHOUT BEHAVIORAL DISTURBANCE SNOMED Code(s): 69281728 Comment: -has dementia -was recently started on donepezil by her PCP; who also recommended neurology referral -pt poor historian; could not know baseline -atempted to talk to her son; left voice msg (5) DVT prophylaxis Current Visit: Yes Status: Acute Code(s): Z29.9 - ENCOUNTER FOR PROPHYLACTIC MEASURES, UNSPECIFIED SNOMED Code(s): 864315413 Comment: -On enoxaparin (6) DNR (do not resuscitate) Current Visit: Yes Status: Acute Status and Disposition: Inpatient Attending: Radha Tyler Attestation Documenting Resident: Erlinda Odom Supervising Physician: Radha Tyler Attending/Supervising Physician Comment: Agree with resident note Attending Addendum:88F PMH R breast cancer(s/p mastectomy and chemo), JERRICA, dementia, depression, domiciled at [place] who presented with severe hypercalcemia. Suspicion for underlying oncologic process recurrence of breast cancer or myleoma. We have initiated myeloma workup, long discussion with son Burt Coyle today (see note) reveals minimal intervention in the event this is cancer, also leaning more towards palliative. Attestation: This service has been performed in part by a resident under the direction of a teaching physician.I, Radha Tyler, performed the service, or was physically present during the critical, or peoples portions of the service, furnished by the resident. I participated in the management of the patient.
[2018-12-21] MEDS: Enoxaparin(*) 30 MG/0.3 ML SYR SUBCUT SCH (17:57)
--- NOTE | 2018-12-21 19:04 | PN ---
Hospitalist Progress Note Date of Service: 12/21/18 Goals of Care Discussion: Spoke with son Burt Hicks on the phone, we discussed his mothers decline ( subacute) for the last 2 months in the setting of dementia which has been worse for about 1 year. We discuss 1) high calcium levels causing her confusion and lethargy-most likely underlying oncologic process either myeloma (discussed) or breast Ca recurrence. We discuss her wishes, she has a known DNR which he concurs and we also discuss that given her decline and low quality of life he feels she would want a very minimal approach to medical workup and to focus on comfort. He would like to pursue the oncologic workup but if cancer is found he would like to defer to hospice. His is a hospice nurse and he is v. familiar with their philosophy. Answered all questions and discussed we would update him with results of pending tests 1) Bone scan 2) SPEP in the coming days , also he is OK with pall care consult either way to hear about options
[2018-12-22] MEDS: NS 0.9% 1000 ML** 1,000 ML IV SCH (03:50)
[2018-12-22 05:58] LABS: Hematocrit 28 % (35-47); Hemoglobin 9.3 g/dL (12.0-16.0); Mean Corpuscular HGB Conc 33 g/dL (31-36); Mean Corpuscular Hemoglobin 32 pg (27-31); Mean Corpuscular Volume 95 fL (80-97); Mean Platelet Volume 8.7 fL (7.4-10.4); Platelet Count 142 10^3/uL (150-450); Red Blood Count 2.96 10^6 /uL (3.70-4.87); Red Cell Distribution Width 16 % (10-15); White Blood Count 17.6 10^3/uL (3.5-10.8)
[2018-12-22 06:10] LABS: BUN/Creatinine Ratio 22.9 (8-20); Calcium 11.3 mg/dL (8.6-10.3); EGFR African American 34.4 (>60); EGFR Non-African American 28.4 (>60); Potassium 3.1 mmol/L (3.5-5.0)
[2018-12-22] MEDS: Morphine INJ* 2 MG/ML 1 ML SYRINGE (TWO MG - NEW SYRINGE VERSION) IV PRN ×3 (06:19→21:05)
--- NOTE | 2018-12-22 07:02 | PN ---
Subjective Date of Service: 12/22/18 Interval History: HD 3 on 12/22 88 y/o F with h/o Right breast cancer(s/p mastectomy and chemo), JERRICA, Obesity, Depression, fibromyalgia, Dementtai presented with worsening confusion and weakness for 2 month associated with lethargy and loss of appetite. Found to have hypercalcemia with leucocytosis and elevated troponin. Overnight- No acute events vitals- tachypnea WBC count increasing Hypernatremia bone survey- multiple lytic lesion-MM or metastatic moaning reponsive to verbal command Objective Active Medications: Acetaminophen (Tylenol Tab*) 650 mg PO Q4H PRN PRN Reason: MILD PAIN or TEMP > 100.4 Last Admin: 12/21/18 08:15 Dose: 650 mg Enoxaparin Sodium (Lovenox(*)) 30 mg SUBCUT Q24H [facility] Last Admin: 12/21/18 17:57 Dose: 30 mg Hydralazine HCl (Apresoline Iv*) 5 mg IV SLOW PU Q6H PRN PRN Reason: SBP>180 Sodium Chloride (Ns 0.9% 1000 Ml) 1,000 mls @ 150 mls/hr IV PER RATE [facility] Last Admin: 12/22/18 03:50 Dose: 150 mls/hr Morphine Sulfate (Morphine Inj (Syringe))*) 1 mg IV Q4H PRN PRN Reason: PAIN - SEVERE Last Admin: 12/22/18 06:19 Dose: 1 mg Vital Signs - 8 hr 12/21/18 12/22/18 12/22/18 23:40 00:54 03:53 Temperature 97.9 F Pulse Rate 79 Respiratory 22 20 24 Rate Blood Pressure 151/92 (mmHg) O2 Sat by Pulse 92 Oximetry 12/22/18 06:19 Temperature Pulse Rate Respiratory 24 Rate Blood Pressure (mmHg) O2 Sat by Pulse Oximetry Oxygen Devices in Use Now: None Exam: Patient is lying on abed with no acute distress. HEENT- Normocephalic and atraumatic. Dry eyes Neck- Nonmobile nodule felt on left side of neck Lungs- clear with no added sounds Heart; S1/S2 heard with no murmur appreciated Abdomen: Soft, nondistended and nontender. Normal BS heard Extremities: Tenderness on both lower extremity Neuro- Oriented to self Result Diagrams: 12/22/18 05:15 12/22/18 05:15 Assess/Plan/Problems-Billing Assessment: 88 y/o F with h/o Right breast cancer(s/p mastectomy and chemo), JERRICA, Obesity, Depression, fibromyalgia, Dementtai presented with worsening confusion and weakness for 2 month associated with lethargy and loss of appetite. Found to have hypercalcemia with leucocytosis and elevated troponin. - Patient Problems (1) Hypercalcemia Current Visit: Yes Status: Acute Code(s): E83.52 - HYPERCALCEMIA SNOMED Code(s): 75184137 Comment: -contributing to confusion -serum calcium of 15 on presentation; normal now - PTH normal, Vitamin D normal -D/D- multiple myeloma, metastatic CA(recurrent breast ca or lung), immobilization with dehydration -Given her pain, anemia and kidney failure-most likely MM - We will send spep, upep, light chains,and PTHrP -bone scan showed multiple lytic lesion -On IVF and pain management (2) Hypernatremia Current Visit: Yes Status: Acute Code(s): E87.0 - HYPEROSMOLALITY AND HYPERNATREMIA SNOMED Code(s): 912246861 Comment: -most likely from not drinking adn eating well; from free water deficit -free water deficit-2.6 L -will give hypotonic saline (3) Acute kidney injury Current Visit: Yes Status: Acute Code(s): N17.9 - ACUTE KIDNEY FAILURE, UNSPECIFIED SNOMED Code(s): 40524136 Comment: -could be from dehydration form poor intake or from MM -FLuids for now. -blood and urine workup sent (4) Heart failure with preserved ejection fraction Current Visit: Yes Status: Acute Code(s): I50.30 - UNSPECIFIED DIASTOLIC ( CONGESTIVE) HEART FAILURE SNOMED Code(s): 165442778 Comment: -has elevated trops- downtrended -elevated BNP; ECG shows t inversion in V1 and III -ECHo shows EF of 65-70% with diastolic dysfxn, sever LA dilation with Mild MR and -could start lasix and lisinopril on discharge or after her calcium level comes to normal (5) Dementia Current Visit: Yes Status: Acute Code(s): F03.90 - UNSPECIFIED DEMENTIA WITHOUT BEHAVIORAL DISTURBANCE SNOMED Code(s): 00078373 Comment: -has dementia -was recently started on donepezil by her PCP; who also recommended neurology referral -pt poor historian; could not know baseline -talked to son yesterday- wants hospice care (6) DVT prophylaxis Current Visit: Yes Status: Acute Code(s): Z29.9 - ENCOUNTER FOR PROPHYLACTIC MEASURES, UNSPECIFIED SNOMED Code(s): 349868030 Comment: -On enoxaparin (7) DNR (do not resuscitate) Current Visit: Yes Status: Acute Status and Disposition: Inpatient Attending: Radha Tyler Attestation Documenting Resident: Erlinda Odom Supervising Physician: Radha Tyler Attending/Supervising Physician Comment: Attending Addendum:88F PMH R breast cancer(s/p mastectomy and chemo), JERRICA, dementia, depression, domiciled at [facility] who presented with severe hypercalcemia. Bone scan confirms widely diffuse metastatic dz breast cancer or myleoma. We have initiated myeloma workup, long discussion with janelel Coyle 12/21 (see note) reveals minimal intervention and given bone scan and overwhelming lab abnormalities, poor prognosis and poor functinoal status given her GOC, she is appropriate for hospice referral Attestation: This service has been performed in part by a resident under the direction of a teaching physician.I, Radha Tyler, performed the service, or was physically present during the critical, or peoples portions of the service, furnished by the resident. I participated in the management of the patient.
[2018-12-22 08:45] LABS: ABS Basophils 0.1 10^3/ul (0-0.2); ABS Lymphocytes 1.7 10^3/ul (1.0-4.8); ABS Monocytes 1.1 10^3/ul (0-0.8); ABS Neutrophils 14.7 10^3/ul (1.5-7.7); Eosinophil % 0.1 %; Lymphocyte % 9.6 %; Nucleated Red Blood Cells % 0.1
[2018-12-22] MEDS ORDERED: Morphine INJ* 2 MG/ML 1 ML SYRINGE (TWO MG - NEW SYRINGE VERSION) IV PRN ×2 (10:28→12:33)
[2018-12-22] MEDS: NS 0.45% 1000 ML BAG* 1,000 ML IV SCH ×2 (12:03→21:55)
[2018-12-22] MEDS: hydrALAZINE IV* 20 MG/ML VIAL IV SLOW PU PRN (12:07)
--- NOTE | 2018-12-22 13:43 | CONSULT ---
Palliative / Hospice Consult Ordering Provider: Radha Tyler - [facility] Reason: Goals of care/senna/MS - Subjective Code Status: DNR Advance Directives Location: In Chart MOLST Part A Completed: Yes - on chart MOLST Part E Completed:: Yes - on chart - History or Present Illness History or Present Illness: 88yo female resident of [facility] presents to ER with weakness and confusion. PMH is significant for h/o R breast cancer s/p mastectomy and chemo, sleep apnea on CPAP, depression, obesity, fibromyalgia, h/o headaches and dementia with incontinence of bladder and bowel for the last year. 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 Pt had moved to [place] to be closer to her brother but he has since moved to [place]. Studies CXR hyperinflation with no acute changes, EKG NSR, ECHO EF 65-70% mild , LA dilatation, EKG #2 NSR & PAC, bone osseous scan multiple lesions calvarium, humeri, L forearm, pelvis, femur, mulitiple rib fx acute, subacute and chronic and vertebral compression fx likely old, H/H 9.3/ 28 , BUN/Cr 39/1.70, egfr 28.4, INR 1.21, BNP 583, alb 3.6, Ca 15.2, troponin .04, AST 68 & ALT 73. Pt admitted with hypercalcemia with altered mental status , demand ischemia and MELI on CKD now with multiple bone lesions either mets or multiple myeloma. Pt has been admitted 01/12- for benign neoplasm appendix, 06/22 - incisional hernia, and 3 ER visits. All history is from son and medical record, pt unable to contribute. Lab Values: Abnormal Lab Results 12/22/18 12/22/18 05:15 05:15 WBC 17.6 H RBC 2.96 L Hgb 9.3 L Hct 28 L MCV 95 MCH 32 H MCHC 33 RDW 16 H Plt Count 142 L MPV 8.7 Neut % (Auto) 83.6 Lymph % (Auto) 9.6 Mayes % (Auto) 6.4 Eos % (Auto) 0.1 Baso % (Auto) 0.3 Absolute Neuts (auto) 14.7 H Absolute Lymphs (auto) 1.7 Absolute Monos (auto) 1.1 H Absolute Eos (auto) 0.0 Absolute Basos (auto) 0.1 Absolute Nucleated RBC 0.0 Nucleated RBC % 0.1 Sodium 150 H Potassium 3.1 L Chloride 114 H Carbon Dioxide 27 Anion Gap 9 BUN 39 H Creatinine 1.70 H Est GFR ( Amer) 34.4 Est GFR (Non-Af Amer) 28.4 BUN/Creatinine Ratio 22.9 H Glucose 113 H Calcium 11.3 H Laboratory Last Values WBC 17.6 10^3/uL (3.5-10.8) H 12/22/18 05:15 RBC 2.96 10^6 /uL (3.70-4.87) L 12/22/18 05:15 Hgb 9.3 g/dL (12.0-16.0) L 12/22/18 05:15 Hct 28 % (35-47) L 12/22/18 05:15 MCV 95 fL (80-97) 12/22/18 05:15 MCH 32 pg (27-31) H 12/22/18 05:15 MCHC 33 g/dL (31-36) 12/22/18 05:15 RDW 16 % (10-15) H 12/22/18 05:15 Plt Count 142 10^3/uL (150-450) L 12/22/18 05:15 MPV 8.7 fL (7.4-10.4) 12/22/18 05:15 Neut % (Auto) 83.6 % 12/22/18 05:15 Lymph % (Auto) 9.6 % 12/22/18 05:15 Mayes % (Auto) 6.4 % 12/22/18 05:15 Eos % (Auto) 0.1 % 12/22/18 05:15 Baso % (Auto) 0.3 % 12/22/18 05:15 Absolute Neuts (auto) 14.7 10^3/ul (1.5-7.7) H 12/22/18 05:15 Absolute Lymphs (auto) 1.7 10^3/ul (1.0-4.8) 12/22/18 05:15 Absolute Monos (auto) 1.1 10^3/ul (0-0.8) H 12/22/18 05:15 Absolute Eos (auto) 0.0 10^3/ul (0-0.6) 12/22/18 05:15 Absolute Basos (auto) 0.1 10^3/ul (0-0.2) 12/22/18 05:15 Absolute Nucleated RBC 0.0 10^3/ul 12/22/18 05:15 Immature Gran % 7.0 % (0-9) 12/21/18 08:25 Neutrophils % 83.0 % 12/21/18 08:25 Band Neutrophils % 5.0 % (0-8) 12/21/18 08:25 Lymphocytes % 8.0 % 12/21/18 08:25 Monocytes % 2.0 % 12/21/18 08:25 Eosinophils % 0.0 % 12/21/18 08:25 Basophils % 0.0 % 12/21/18 08:25 Myelocytes % 2.0 % (0-1) H 12/21/18 08:25 Nucleated RBC % 0.1 12/22/18 05:15 Nucleated RBCs/100 WBC 1.0 (0-0) H 12/21/18 08:25 Normal RBC Morphology Not Reportable 12/21/18 08:25 Anisocytosis 1+ 12/21/18 08:25 INR (Anticoag Therapy) 1.21 (0.82-1.09) H 12/21/18 08:25 APTT 31.2 seconds (26.0-38.0) 12/20/18 14:25 Sodium 150 mmol/L (135-145) H 12/22/18 05:15 Potassium 3.1 mmol/L (3.5-5.0) L 12/22/18 05:15 Chloride 114 mmol/L (101-111) H 12/22/18 05:15 Carbon Dioxide 27 mmol/L (22-32) 12/22/18 05:15 Anion Gap 9 mmol/L (2-11) 12/22/18 05:15 BUN 39 mg/dL (6-24) H 12/22/18 05:15 Creatinine 1.70 mg/dL (0.51-0.95) H 12/22/18 05:15 Est GFR ( Amer) 34.4 (>60) 12/22/18 05:15 Est GFR (Non-Af Amer) 28.4 (>60) 12/22/18 05:15 BUN/Creatinine Ratio 22.9 (8-20) H 12/22/18 05:15 Glucose 113 mg/dL (70-100) H 12/22/18 05:15 Calcium 11.3 mg/dL (8.6-10.3) H 12/22/18 05:15 Ionized Calcium 1.79 mmol/L (1.16-1.32) H* 12/20/18 17:05 Phosphorus 5.1 mg/dL (2.5-5.0) H 12/20/18 14:25 Magnesium 2.2 mg/dL (1.9-2.7) 12/20/18 14:25 Total Bilirubin 0.60 mg/dL (0.2-1.0) 12/21/18 08:25 AST 88 U/L (13-39) H 12/21/18 08:25 ALT 73 U/L (7-52) H 12/21/18 08:25 Alkaline Phosphatase 103 U/L (34-104) 12/21/18 08:25 Troponin I 0.04 ng/mL (<0.04) H* 12/20/18 20:36 B-Natriuretic Peptide 583 pg/mL (<=100) H 12/20/18 14:25 Total Protein 6.9 g/dL (6.4-8.9) 12/21/18 08:25 Albumin 3.6 g/dL (3.2-5.2) 12/21/18 08:25 Globulin 3.3 g/dL (2-4) 12/21/18 08:25 Albumin/Globulin Ratio 1.1 (1-3) 12/21/18 08:25 Triglycerides 113 mg/dL 12/21/18 08:25 Cholesterol 167 mg/dL 12/21/18 08:25 LDL Cholesterol 106 mg/dL 12/21/18 08:25 HDL Cholesterol 38.8 mg/dL 12/21/18 08:25 25-OH Vitamin D Total 23.8 ng/mL (20-50) 12/20/18 14:18 TSH 3.36 mcIU/mL (0.34-5.60) 12/20/18 14:18 PTH Intact 17.2 pg/mL (12-88) 12/20/18 14:18 Calcium (PTH Intact) 15.2 mg/dL (8.6-10.3) H* 12/20/18 14:18 Urine Color Yellow 12/20/18 17:30 Urine Appearance Cloudy 12/20/18 17:30 Urine pH 5.0 (5-9) 12/20/18 17:30 Ur Specific [place] 1.014 (1.010-1.030) 12/20/18 17:30 Urine Protein Negative (Negative) 12/20/18 17:30 Urine Ketones Negative (Negative) 12/20/18 17:30 Urine Blood Negative (Negative) 12/20/18 17:30 Urine Nitrate Negative (Negative) 12/20/18 17:30 Urine Bilirubin Negative (Negative) 12/20/18 17:30 Urine Urobilinogen Negative (Negative) 12/20/18 17:30 Ur Leukocyte Esterase Negative (Negative) 12/20/18 17:30 Urine Glucose Negative (Negative) 12/20/18 17:30 Influenza A (Rapid) Negative (Negative) 12/20/18 17:10 Influenza B (Rapid) Negative (Negative) 12/20/18 17:10 - Objective Active Medications: Acetaminophen (Tylenol Tab*) 650 mg PO Q4H PRN PRN Reason: MILD PAIN or TEMP > 100.4 Last Admin: 12/21/18 08:15 Dose: 650 mg Enoxaparin Sodium (Lovenox(*)) 30 mg SUBCUT Q24H [facility] Last Admin: 12/21/18 17:57 Dose: 30 mg Hydralazine HCl (Apresoline Iv*) 5 mg IV SLOW PU Q6H PRN PRN Reason: SBP>180 Last Admin: 12/22/18 12:07 Dose: 5 mg Sodium Chloride (Ns 0.45% 1000 Ml Bag*) 1,000 mls @ 125 mls/hr IV PER RATE [facility] Stop: 12/23/18 19:59 Last Admin: 12/22/18 12:03 Dose: 125 mls/hr Morphine Sulfate (Morphine Inj (Syringe))*) 1 mg IV Q1H PRN PRN Reason: PAIN - SEVERE Last Admin: 12/22/18 12:44 Dose: 1 mg Vital Signs: Vital Signs: Temp Pulse Resp BP Pulse Ox 98 F 84 26 168/94 90 12/22/18 07:31 12/22/18 07:31 12/22/18 12:44 12/22/18 07:31 12/22/18 07:31 Patient Weight: Weight 81.647 kg Intake and Output: Intake & Output 12/20/18 12/21/18 12/22/18 12/23/18 06:59 06:59 06:59 06:59 Intake Total 1306 2202 15 Output Total 0 Balance 1306 2202 15 Weight 81.647 kg Intake: IV Fluids 1246 962 NS 246 962 IVPB 1000 NS 1000 Oral 60 240 15 Output: Urine 0 Other: Estimated Void Medium # Voids 4 ADLs: Meal Record Start: 12/20/18 18: 15 Freq: DAILY@0900,1400,1800 Status: Active Protocol: Created 12/20/18 18:15 System (Rec: 12/20/18 18:15 System [id number]) Document 12/21/18 09:00 [id number] (Rec: 12/21/18 12:10 [id number] TELE-C01) Document 12/21/18 14:00 [id number] (Rec: 12/21/18 18:08 [id number] TELE-C01) Document 12/21/18 18:00 [id number] (Rec: 12/21/18 18:25 [id number] TELE-C01) Document 12/22/18 09:00 [id number] (Rec: 12/22/18 09:38 [id number] TELE-C10) Intake and Output Start: 12/20/18 14: 05 Freq: Status: Active Protocol: Created 12/20/18 14:05 System (Rec: 12/20/18 14:05 System [id number]) Intake and Output Start: 12/20/18 18: 15 Freq: DAILY@0600,1400,2200 Status: Active Protocol: Created 12/20/18 18:15 System (Rec: 12/20/18 18:15 System [email or web address]) Document 12/20/18 21:30 [id number] (Rec: 12/20/18 21:30 [id number] TELE-C07) Document 12/21/18 05:39 [id number] (Rec: 12/21/18 05:39 [id number] TELE-C03) Document 12/21/18 14:00 [id number] (Rec: 12/21/18 16:08 [id number] TELE-C08) Document 12/21/18 22:00 [id number] (Rec: 12/21/18 23:11 [id number] TELE-C07) Document 12/22/18 06:00 [id number] (Rec: 12/22/18 06:05 [id number] TELE-C09) Head: Normal Eyes: No Scleral Icterus Ears/Nose/Mouth/Throat: NL Teeth, Lips, Gums Neck: NL Appearance and Movements; NL JVP Cardiovascular: NL Sounds; No Murmurs; No JVD Respiratory: Symmetrical Chest Expansion and Respiratory Effort Abdominal: NL Sounds; No Tenderness; No Distention Neurological: - - alert at times not oriented or able to answer questions - Assessment Assessment: 88yo female with multiple bone mets vs multiple myeloma on comfort care - Plan Consult Plan (MU): Hospice Plan: Long conversation with son who is HCP & POA according to [facility] records about goals of care. Son would like his mom to be on comfort care and not do further work up of bony lesions. Updated MOLST was completed with son reflecting pt's wishes. Also discussed [facility] if [facility] will pursue SNF with hospice care. [place] contacted and pt has friends in the area so will choose local jail and discuss with contracts attorney Lola Andrade . All information to be passed onto case management. Also spoke with provider about pain control and bowel meds. Since pt not on regular narcotic dose will do prn today and based on 24hr usage calculate scheduled dose for tomorrow and 10% of scheduled dose for prn. If no relief to consider adding biophosphate or steriods. Pt is eligible for hospice based on metastatic cancer diagnosis not wanting treatment. KPS 30%, PPS 30% - Time On Unit Date of Evaluation: 12/22/18 Hospice Consult Time in: 13:00 Hospice Consult Time Out: 14:00 Hospice Consult Time Total: 60 > 50% of Time Spend In Counseling or Coordinating Care: Yes
[2018-12-22] MEDS ORDERED: Senna TAB 8.6 mg* TAB PO PRN (13:55)
[2018-12-22 22:36] LABS: Kappa Free Light Chain 4.61 mg/dL; Lambda Free Light Chain 2.9 mg/dL
[2018-12-23] MEDS: hydrALAZINE IV* 20 MG/ML VIAL IV SLOW PU PRN (00:08)
[2018-12-23] MEDS: Morphine INJ* 2 MG/ML 1 ML SYRINGE (TWO MG - NEW SYRINGE VERSION) IV PRN (00:08)
[2018-12-23] MEDS ORDERED: Morphine INJ* 4 MG/ML 1 ML SYRINGE (NEW SYRINGE VERSION) IV PRN (05:00)
[2018-12-23] MEDS ORDERED: Morphine INJ* 2 MG/ML 1 ML SYRINGE (TWO MG - NEW SYRINGE VERSION) IV PRN ×2 (06:30→08:49)
[2018-12-23] MEDS: Morphine ORAL CONCENTRATE* 5 MG/0.25 ML ORAL.SYRIN SL PRN (10:38)
[2018-12-23] MEDS: Morphine INJ* 4 MG/ML 1 ML SYRINGE (NEW SYRINGE VERSION) IV SCH ×3 (11:23→21:07)
--- NOTE | 2018-12-23 16:00 | PN ---
Subjective Date of Service: 12/23/18 Interval History: HD 4 on 12/23 88 y/o F with h/o Right breast cancer(s/p mastectomy and chemo), JERRICA, Obesity, Depression, fibromyalgia, Dementtai presented with worsening confusion and weakness for 2 month associated with lethargy and loss of appetite. Found to have hypercalcemia with leucocytosis and elevated troponin adn multiple lytic bone lesion. COmfort care On morphine and senna Objective Active Medications: Acetaminophen (Tylenol Tab*) 650 mg PO Q4H PRN PRN Reason: MILD PAIN or TEMP > 100.4 Last Admin: 12/21/18 08:15 Dose: 650 mg Hydralazine HCl (Apresoline Iv*) 5 mg IV SLOW PU Q6H PRN PRN Reason: SBP>180 Last Admin: 12/23/18 00:08 Dose: 5 mg Sodium Chloride (Ns 0.45% 1000 Ml Bag*) 1,000 mls @ 125 mls/hr IV PER RATE [facility] Stop: 12/23/18 19:59 Last Admin: 12/22/18 21:55 Dose: 125 mls/hr Morphine Sulfate (Morphine Inj (Syringe)*) 3.5 mg IV Q6H [facility] Last Admin: 12/23/18 11:23 Dose: 3.5 mg Morphine Sulfate (Morphine Oral Concentrate*) 5 mg SL Q2H PRN PRN Reason: PAIN - MODERATE Last Admin: 12/23/18 10:38 Dose: 5 mg Senna (Senokot 8.6 Mg Tab*) 1 tab PO BEDTIME PRN PRN Reason: CONSTIPATION Vital Signs - 8 hr 12/23/18 12/23/18 12/23/18 08:00 08:15 09:15 Pulse Rate 76 Respiratory 22 22 20 Rate Blood Pressure 169/77 (mmHg) 12/23/18 12/23/18 12/23/18 10:38 11:23 12:20 Pulse Rate Respiratory 22 22 20 Rate Blood Pressure (mmHg) 12/23/18 12:35 Pulse Rate Respiratory 20 Rate Blood Pressure (mmHg) Oxygen Devices in Use Now: Nasal Cannula Exam: Patient is lying on abed with no acute distress. HEENT- Normocephalic and atraumatic. Dry eyes Neck- Nonmobile nodule felt on left side of neck Lungs- clear with no added sounds Heart; S1/S2 heard with no murmur appreciated Abdomen: Soft, nondistended and nontender. Normal BS heard Extremities: Tenderness on both lower extremity Neuro- Oriented to self Result Diagrams: 12/22/18 05:15 12/22/18 05:15 Assess/Plan/Problems-Billing Assessment: 88 y/o F with h/o Right breast cancer(s/p mastectomy and chemo), JERRICA, Obesity, Depression, fibromyalgia, Dementtai presented with worsening confusion and weakness for 2 month associated with lethargy and loss of appetite. Found to have hypercalcemia with leucocytosis and elevated troponin wiht multiple lytic bone lesions - Patient Problems (1) Hypercalcemia Current Visit: Yes Status: Acute Code(s): E83.52 - HYPERCALCEMIA SNOMED Code(s): 81983414 Comment: -contributing to confusion -serum calcium of 15 on presentation; normal now - PTH normal, Vitamin D normal -D/D- multiple myeloma, metastatic CA(recurrent breast ca or lung), immobilization with dehydration -Given her pain, anemia and kidney failure-most likely MM - We will send spep, upep, light chains,and PTHrP -bone scan showed multiple lytic lesion -On IVF and pain management (2) Hypernatremia Current Visit: Yes Status: Acute Code(s): E87.0 - HYPEROSMOLALITY AND HYPERNATREMIA SNOMED Code(s): 932887954 Comment: -most likely from not drinking adn eating well; from free water deficit -free water deficit-2.6 L -will give hypotonic saline (3) Acute kidney injury Current Visit: Yes Status: Acute Code(s): N17.9 - ACUTE KIDNEY FAILURE, UNSPECIFIED SNOMED Code(s): 21598023 Comment: -could be from dehydration form poor intake or from MM -FLuids for now. -blood and urine workup sent (4) Heart failure with preserved ejection fraction Current Visit: Yes Status: Acute Code(s): I50.30 - UNSPECIFIED DIASTOLIC ( CONGESTIVE) HEART FAILURE SNOMED Code(s): 012104746 Comment: -has elevated trops- downtrended -elevated BNP; ECG shows t inversion in V1 and III -ECHo shows EF of 65-70% with diastolic dysfxn, sever LA dilation with Mild MR and -comfort care only (5) Dementia Current Visit: Yes Status: Acute Code(s): F03.90 - UNSPECIFIED DEMENTIA WITHOUT BEHAVIORAL DISTURBANCE SNOMED Code(s): 88560159 Comment: -has dementia -was recently started on donepezil by her PCP; who also recommended neurology referral -pt poor historian; could not know baseline -talked to son yesterday- wants hospice care (6) DVT prophylaxis Current Visit: Yes Status: Acute Code(s): Z29.9 - ENCOUNTER FOR PROPHYLACTIC MEASURES, UNSPECIFIED SNOMED Code(s): 841309328 Comment: -none (7) DNR (do not resuscitate) Current Visit: Yes Status: Acute Status and Disposition: Inpatient waiting bed [facility] care in [facility] Attending: Radha Tyler Attestation Documenting Resident: Erlinda Odom Supervising Physician: Radha Tyler Attending/Supervising Physician Comment: Agree with resident note, awaiting placement options for STAFF REPORTER 88F with widely metastaic onc process. Attestation: This service has been performed in part by a resident under the direction of a teaching physician.I, Radha Tyler, performed the service, or was physically present during the critical, or peoples portions of the service, furnished by the resident. I participated in the management of the patient.
[2018-12-23 16:28] LABS: Albumin 3.1 g/dL (3.4-4.7); Albumin/Globulin Ratio 0.77; Gamma Globulin 1.6 g/dL (0.6-1.6)
[2018-12-23 16:45] LABS: PTH Related Peptide 0.8 pmol/L (< or = 4.2)
[2018-12-23] MEDS: Atropine 1% (ORAL/SL)* 15 ML BTL SL PRN (17:14)
[2018-12-23 19:47] LABS: Urine Kappa Total Light Chain 6.46 mg/dL (<0.9000); Urine Kappa/Lambda Light Chain 2.24
[2018-12-24] MEDS: Morphine INJ* 4 MG/ML 1 ML SYRINGE (NEW SYRINGE VERSION) IV SCH ×2 (02:44→08:44)
[2018-12-24] MEDS: Morphine ORAL CONCENTRATE* 5 MG/0.25 ML ORAL.SYRIN SL PRN ×5 (03:11→21:24)
[2018-12-24 04:52] VITALS: BP 143/58
[2018-12-24] MEDS ORDERED: Bisacodyl SUPP* 10 MG SUPP PR PRN (10:48)
[2018-12-24] MEDS ORDERED: Lorazepam PYXIS KEY PRN (11:00)
[2018-12-24] MEDS ORDERED: Dexamethasone TAB* 4 MG PO SCH (11:00)
[2018-12-24] MEDS ORDERED: fentaNYL PATCH 12 MCG/HR TRANSDERM SCH (12:30)
[2018-12-24] MEDS: Dexamethasone IV* 4 MG/ML 1 ML (4 MG) IV SLOW PU SCH ×2 (17:48→21:26)
[2018-12-24] MEDS: fentaNYL PATCH 12 MCG/HR TRANSDERM SCH (18:00)
[2018-12-24] MEDS: fentaNYL Patch Check Q Shift 1 NOTE SCH (18:40)
--- NOTE | 2018-12-24 19:31 | PN ---
Subjective Date of Service: 12/24/18 Interval History: HD 5 on 12/24 88 y/o F with h/o Right breast cancer(s/p mastectomy and chemo), JERRICA, Obesity, Depression, fibromyalgia, Dementtai presented with worsening confusion and weakness for 2 month associated with lethargy and loss of appetite. Found to have hypercalcemia with leucocytosis and elevated troponin adn multiple lytic bone lesion. COmfort care today started on fentanyl and dexamethasone for pain bisacodyl suppositories for constipation on huynh catheter Objective Active Medications: Acetaminophen (Tylenol Tab*) 650 mg PO Q4H PRN PRN Reason: MILD PAIN or TEMP > 100.4 Last Admin: 12/21/18 08:15 Dose: 650 mg Atropine Sulfate (Atropine 1% (Oral/Sl)*) 2 drop SL Q2H PRN PRN Reason: secretion Last Admin: 12/23/18 17:14 Dose: 2 drop Bisacodyl (Dulcolax Supp*) 10 mg ME DAILY PRN PRN Reason: CONSTIPATION Last Admin: 12/24/18 18:02 Dose: 10 mg Dexamethasone Sodium Phosphate (Decadron Iv*) 4 mg IV SLOW PU Q8HR [facility]AD[facility] Last Admin: 12/24/18 17:48 Dose: 4 mg Fentanyl (Duragesic Patch 12 Mcg/Hr *) 12 mcg TRANSDERM Q72H MADI Last Admin: 12/24/18 18:00 Dose: 12 mcg Hydralazine HCl (Apresoline Iv*) 5 mg IV SLOW PU Q6H PRN PRN Reason: SBP>180 Last Admin: 12/23/18 00:08 Dose: 5 mg Lorazepam (Ativan Inj*) 0.5 mg IV PUSH Q4H PRN PRN Reason: ANXIETY Miscellaneous (Ativan Pyxis Htakur) 1 ea N/A .ATIVAN IV THAKUR PRN PRN Reason: PYXIS THAKUR Morphine Sulfate (Morphine Oral Concentrate*) 6 mg SL Q2H PRN PRN Reason: PAIN - MODERATE Last Admin: 12/24/18 17:47 Dose: 6 mg Pharmacy Profile Note (Fentanyl Patch Check Q Shift) 1 note N/A 0700,1900 [facility] Last Admin: 12/24/18 18:40 Dose: 1 note Senna (Senokot 8.6 Mg Tab*) 1 tab PO BEDTIME PRN PRN Reason: CONSTIPATION Vital Signs - 8 hr 11/16/19 11/16/19 11/16/19 11:33 17:47 18:00 Respiratory 20 18 22 Rate Oxygen Devices in Use Now: Nasal Cannula Exam: Patient is lying on abed with no acute distress. HEENT- Normocephalic and atraumatic. Dry eyes Neck- Nonmobile nodule felt on left side of neck Lungs- clear with no added sounds Heart; S1/S2 heard with no murmur appreciated Abdomen: Soft, nondistended and nontender. Normal BS heard Extremities: Tenderness on both lower extremity Result Diagrams: 12/22/18 05:15 12/22/18 05:15 Assess/Plan/Problems-Billing Assessment: 88 y/o F with h/o Right breast cancer(s/p mastectomy and chemo), JERRICA, Obesity, Depression, fibromyalgia, Dementtai presented with worsening confusion and weakness for 2 month associated with lethargy and loss of appetite. Found to have hypercalcemia with leucocytosis and elevated troponin wiht multiple lytic bone lesions - Patient Problems (1) Hypercalcemia Current Visit: Yes Status: Acute Code(s): E83.52 - HYPERCALCEMIA SNOMED Code(s): 99772615 Comment: -contributing to confusion -serum calcium of 15 on presentation; normal now - PTH normal, Vitamin D normal -D/D- multiple myeloma, metastatic CA(recurrent breast ca or lung), immobilization with dehydration -Given her pain, anemia and kidney failure-most likely MM -spep, upep, light chains,and PTHrP normal -bone scan showed multiple lytic lesiion -On IVF and pain management (2) Hypernatremia Current Visit: Yes Status: Acute Code(s): E87.0 - HYPEROSMOLALITY AND HYPERNATREMIA SNOMED Code(s): 786123489 Comment: -most likely from not drinking adn eating well; from free water deficit -received hypotonic saline (3) Acute kidney injury Current Visit: Yes Status: Acute Code(s): N17.9 - ACUTE KIDNEY FAILURE, UNSPECIFIED SNOMED Code(s): 08447871 Comment: -could be from dehydration form poor intake or from MM -FLuids given (4) Heart failure with preserved ejection fraction Current Visit: Yes Status: Acute Code(s): I50.30 - UNSPECIFIED DIASTOLIC ( CONGESTIVE) HEART FAILURE SNOMED Code(s): 524747620 Comment: -has elevated trops- downtrended -elevated BNP; ECG shows t inversion in V1 and III -ECHo shows EF of 65-70% with diastolic dysfxn, sever LA dilation with Mild MR and -comfort care only (5) Dementia Current Visit: Yes Status: Acute Code(s): F03.90 - UNSPECIFIED DEMENTIA WITHOUT BEHAVIORAL DISTURBANCE SNOMED Code(s): 41711760 Comment: -has dementia -was recently started on donepezil by her PCP; who also recommended neurology referral -pt poor historian; could not know baseline -talked to son yesterday- wants hospice care (6) DVT prophylaxis Current Visit: Yes Status: Acute Code(s): Z29.9 - ENCOUNTER FOR PROPHYLACTIC MEASURES, UNSPECIFIED SNOMED Code(s): 262844038 Comment: -none (7) DNR (do not resuscitate) Current Visit: Yes Status: Acute Status and Disposition: [facility] Attending: Radha Tyler Attestation Documenting Resident: Erlinda Odom Supervising Physician: Radha Tyler Attestation: This service has been performed in part by a resident under the direction of a teaching physician.I, Radha Tyler, performed the service, or was physically present during the critical, or thakur portions of the service, furnished by the resident. I participated in the management of the patient.
[2018-12-24] MEDS: LORazepam INJ* 2 MG/ML 1 ML VIAL IV PUSH PRN (21:26)
[2018-12-25] MEDS: Dexamethasone IV* 4 MG/ML 1 ML (4 MG) IV SLOW PU SCH ×3 (05:15→21:17)
[2018-12-25] MEDS: fentaNYL Patch Check Q Shift 1 NOTE SCH ×2 (06:29→18:39)
[2018-12-25] MEDS: LORazepam INJ* 2 MG/ML 1 ML VIAL IV PUSH PRN ×3 (06:49→18:37)
[2018-12-25] MEDS: Morphine ORAL CONCENTRATE* 5 MG/0.25 ML ORAL.SYRIN SL PRN ×4 (06:50→21:16)
--- NOTE | 2018-12-25 08:00 | PN ---
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 Overnight no acute events, more comfortable on current meds, non verbal Added fent patch, decadron for bone pain, ativan yesterday, still have IV access Resting peacefully in her room. Objective Active Medications: Acetaminophen (Tylenol Tab*) 650 mg PO Q4H PRN PRN Reason: MILD PAIN or TEMP > 100.4 Last Admin: 12/21/18 08:15 Dose: 650 mg Atropine Sulfate (Atropine 1% (Oral/Sl)*) 2 drop SL Q2H PRN PRN Reason: secretion Last Admin: 12/23/18 17:14 Dose: 2 drop Bisacodyl (Dulcolax Supp*) 10 mg AR DAILY PRN PRN Reason: CONSTIPATION Last Admin: 12/24/18 18:02 Dose: 10 mg Dexamethasone Sodium Phosphate (Decadron Iv*) 4 mg IV SLOW PU Q8HR COUNT INCLUDES THE [facility] Last Admin: 12/25/18 05:15 Dose: 4 mg Fentanyl (Duragesic Patch 12 Mcg/Hr *) 12 mcg TRANSDERM Q72H [facility] Last Admin: 12/24/18 18:00 Dose: 12 mcg Hydralazine HCl (Apresoline Iv*) 5 mg IV SLOW PU Q6H PRN PRN Reason: SBP>180 Last Admin: 12/23/18 00:08 Dose: 5 mg Lorazepam (Ativan Inj*) 0.5 mg IV PUSH Q4H PRN PRN Reason: ANXIETY Last Admin: 12/25/18 06:49 Dose: 0.5 mg Miscellaneous (Ativan Pyxis Ren) 1 ea N/A .ATIVAN IV REN PRN PRN Reason: PYXIS REN Morphine Sulfate (Morphine Oral Concentrate*) 6 mg SL Q2H PRN PRN Reason: PAIN - MODERATE Last Admin: 12/25/18 06:50 Dose: 6 mg Pharmacy Profile Note (Fentanyl Patch Check Q Shift) 1 note N/A 0700,1900 [facility] Last Admin: 12/25/18 06:29 Dose: 1 note Senna (Senokot 8.6 Mg Tab*) 1 tab PO BEDTIME PRN PRN Reason: CONSTIPATION Vital Signs - 8 hr 12/25/18 12/25/18 12/25/18 01:11 06:49 06:50 Respiratory 18 20 20 Rate Oxygen Devices in Use Now: Nasal Cannula Appearance: Resting peacefully, no acute distress, easily macy out when disturbed Result Diagrams: 12/22/18 05:15 12/22/18 05:15 Microbiology and Other Data: Assess/Plan/Problems-Billing Assessment: [employer]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 Currently actively in dying process. - Patient Problems (1) Metastatic cancer to bone Current Visit: Yes Status: Acute Code(s): C79.51 - SECONDARY MALIGNANT NEOPLASM OF BONE SNOMED Code(s): 01162128 Comment: -Likely primary breast though did not purse more scan 2/ to family wishes -SPEP neg, numerous lytic lesions and pathologic fractures -Pain control bisphosphanates (started calcitonin, x1 dose zolendric acid today- should be a one time dose), decadron, SL morphine, Fent patch q 72 hours (2) Hypercalcemia Current Visit: Yes Status: Acute Code(s): E83.52 - HYPERCALCEMIA SNOMED Code(s): 90041474 Comment: -Of malignancy, SPEP neg -Bone scan showed multiple lytic lesions (3) Hypernatremia Current Visit: Yes Status: Acute Code(s): E87.0 - HYPEROSMOLALITY AND HYPERNATREMIA SNOMED Code(s): 434954887 Comment: -Contributing to AMS from FWD (4) Acute kidney injury Current Visit: Yes Status: Acute Code(s): N17.9 - ACUTE KIDNEY FAILURE, UNSPECIFIED SNOMED Code(s): 86410737 Comment: -dehydration (5) Heart failure with preserved ejection fraction Current Visit: Yes Status: Acute Code(s): I50.30 - UNSPECIFIED DIASTOLIC ( CONGESTIVE) HEART FAILURE SNOMED Code(s): 686167624 Comment: -elevated BNP; ECG shows t inversion in V1 and III -Echo shows EF of 65-70% with diastolic dysfxn, severe LA dilation with Mild MR and -comfort care only (6) Dementia Current Visit: Yes Status: Acute Code(s): F03.90 - UNSPECIFIED DEMENTIA WITHOUT BEHAVIORAL DISTURBANCE SNOMED Code(s): 16013988 Comment: -has dementia at baseline (7) DVT prophylaxis Current Visit: Yes Status: Acute Code(s): Z29.9 - ENCOUNTER FOR PROPHYLACTIC MEASURES, UNSPECIFIED SNOMED Code(s): 698992578 Comment: -none (8) DNR (do not resuscitate) Current Visit: Yes Status: Acute Status and Disposition: Comfort measures only patient in actively dying process, pain control issue, improving on current regimen.
[2018-12-25] MEDS ORDERED: Zoledronic Acid* 4 MG in NS 0.9% 100 ML* 95 ML IVPB ONE (12:00)
[2018-12-25] MEDS ORDERED: NS 0.9% IVPB ONE (13:00)
[2018-12-25] MEDS ORDERED: ZOLEDRONIC ACID IVPB ONE (13:00)
[2018-12-26] MEDS: Morphine ORAL CONCENTRATE* 5 MG/0.25 ML ORAL.SYRIN SL PRN ×7 (02:12→23:10)
[2018-12-26] MEDS: LORazepam INJ* 2 MG/ML 1 ML VIAL IV PUSH PRN ×3 (02:13→23:11)
[2018-12-26] MEDS: Dexamethasone IV* 4 MG/ML 1 ML (4 MG) IV SLOW PU SCH ×3 (05:41→23:11)
[2018-12-26] MEDS: fentaNYL Patch Check Q Shift 1 NOTE SCH ×2 (06:40→18:32)
[2018-12-26] MEDS: Atropine 1% (ORAL/SL)* 15 ML BTL SL PRN ×2 (13:16→17:24)
[2018-12-26 14:39] LABS: Albumin 53 %; Albumin/Globulin Ratio 1.14 %; Gamma Globulin 18 %; Total Protein(PEP) Urine 79 mg/dL
--- NOTE | 2018-12-26 17:53 | PN ---
Subjective Date of Service: 12/26/18 Interval History: Patient is lethargic,not in apparent distress. No overnight events. Objective Active Medications: Acetaminophen (Tylenol Tab*) 650 mg PO Q4H PRN PRN Reason: MILD PAIN or TEMP > 100.4 Last Admin: 12/21/18 08:15 Dose: 650 mg Atropine Sulfate (Atropine 1% (Oral/Sl)*) 2 drop SL Q2H PRN PRN Reason: secretion Last Admin: 12/26/18 17:24 Dose: 2 drop Bisacodyl (Dulcolax Supp*) 10 mg PA DAILY PRN PRN Reason: CONSTIPATION Last Admin: 12/24/18 18:02 Dose: 10 mg Dexamethasone Sodium Phosphate (Decadron Iv*) 4 mg IV SLOW PU Q8HR COUNTS INCLUDE 234 BEDS AT THE [facility] Last Admin: 12/26/18 13:16 Dose: 4 mg Fentanyl (Duragesic Patch 12 Mcg/Hr *) 12 mcg TRANSDERM Q72H MADI Last Admin: 12/24/18 18:00 Dose: 12 mcg Hydralazine HCl (Apresoline Iv*) 5 mg IV SLOW PU Q6H PRN PRN Reason: SBP>180 Last Admin: 12/23/18 00:08 Dose: 5 mg Lorazepam (Ativan Inj*) 0.5 mg IV PUSH Q4H PRN PRN Reason: ANXIETY Last Admin: 12/26/18 13:16 Dose: 0.5 mg Miscellaneous (Ativan Pyxis Thakur) 1 ea N/A .ATIVAN IV THAKUR PRN PRN Reason: PYXIS THAKUR Morphine Sulfate (Morphine Oral Concentrate*) 6 mg SL Q2H PRN PRN Reason: PAIN - MODERATE Last Admin: 12/26/18 17:24 Dose: 6 mg Pharmacy Profile Note (Fentanyl Patch Check Q Shift) 1 note N/A 0700,1900 [facility]CLUDE 234 BEDS AT THE [facility] Last Admin: 12/26/18 06:40 Dose: 1 note Senna (Senokot 8.6 Mg Tab*) 1 tab PO BEDTIME PRN PRN Reason: CONSTIPATION Vital Signs - 8 hr 12/26/18 12/26/18 12/26/18 10:07 11:31 13:16 Respiratory 24 24 28 Rate 12/26/18 12/26/18 12/26/18 13:19 14:04 14:05 Respiratory 28 24 24 Rate 12/26/18 12/26/18 15:35 17:24 Respiratory 23 24 Rate Oxygen Devices in Use Now: Nasal Cannula Exam: Appearance: Resting peacefully, jaundice looking, not in acute distress Result Diagrams: 12/22/18 05:15 12/22/18 05:15 Microbiology and Other Data: Assess/Plan/Problems-Billing Assessment: [employer]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 Currently actively in dying process. - Patient Problems (1) Metastatic cancer to bone Current Visit: Yes Status: Acute Code(s): C79.51 - SECONDARY MALIGNANT NEOPLASM OF BONE SNOMED Code(s): 15436556 Comment: -Likely primary breast though did not purse more scan / to family wishes -SPEP neg, numerous lytic lesions and pathologic fractures -Pain control bisphosphanates (started calcitonin, x1 dose zolendric acid today- should be a one time dose), decadron, SL morphine, Fent patch q 72 hours (2) Hypercalcemia Current Visit: Yes Status: Acute Code(s): E83.52 - HYPERCALCEMIA SNOMED Code(s): 15191874 Comment: -Of malignancy, SPEP neg -Bone scan showed multiple lytic lesions (3) Acute kidney injury Current Visit: Yes Status: Acute Code(s): N17.9 - ACUTE KIDNEY FAILURE, UNSPECIFIED SNOMED Code(s): 61043003 Comment: -dehydration (4) Dementia Current Visit: Yes Status: Acute Code(s): F03.90 - UNSPECIFIED DEMENTIA WITHOUT BEHAVIORAL DISTURBANCE SNOMED Code(s): 57291779 Comment: -has dementia at baseline (5) Heart failure with preserved ejection fraction Current Visit: Yes Status: Acute Code(s): I50.30 - UNSPECIFIED DIASTOLIC ( CONGESTIVE) HEART FAILURE SNOMED Code(s): 644573599 Comment: -elevated BNP; ECG shows t inversion in V1 and III -Echo shows EF of 65-70% with diastolic dysfxn, severe LA dilation with Mild MR and -comfort care only (6) Hypernatremia Current Visit: Yes Status: Acute Code(s): E87.0 - HYPEROSMOLALITY AND HYPERNATREMIA SNOMED Code(s): 995280404 Comment: -Contributing to AMS from FWD (7) DNR (do not resuscitate) Current Visit: Yes Status: Acute (8) DVT prophylaxis Current Visit: Yes Status: Acute Code(s): Z29.9 - ENCOUNTER FOR PROPHYLACTIC MEASURES, UNSPECIFIED SNOMED Code(s): 376005166 Comment: -none Status and Disposition: Comfort measures only patient in actively dying process Hospice placement will be ready on Wed Attestation Documenting Resident: Hyacinth Del Angel Supervising Physician: Derrick Mina Attending/Supervising Physician Comment: 88 yo woman admitted w/ lethargy, hypercalcemia, has diffuse skeletal metastasis , likely due to breast cancer. On comfort care, looking for hospice bed. Attestation: This service has been performed in part by a resident under the direction of a teaching physician.I, Derrick Mina, performed the service, or was physically present during the critical, or thakur portions of the service, furnished by the resident. I participated in the management of the patient.
[2018-12-27] MEDS: Morphine ORAL CONCENTRATE* 5 MG/0.25 ML ORAL.SYRIN SL PRN ×6 (04:42→21:05)
[2018-12-27] MEDS: Atropine 1% (ORAL/SL)* 15 ML BTL SL PRN ×4 (04:42→13:33)
[2018-12-27] MEDS: Dexamethasone IV* 4 MG/ML 1 ML (4 MG) IV SLOW PU SCH ×3 (05:16→21:06)
[2018-12-27] MEDS: fentaNYL Patch Check Q Shift 1 NOTE SCH ×2 (06:03→18:50)
--- NOTE | 2018-12-27 15:40 | PN ---
Subjective Date of Service: 12/27/18 Interval History: No events overnight. Patient was sleeping without pain. Noted patient was visited by her friends. Objective Active Medications: Acetaminophen (Tylenol Tab*) 650 mg PO Q4H PRN PRN Reason: MILD PAIN or TEMP > 100.4 Last Admin: 12/21/18 08:15 Dose: 650 mg Atropine Sulfate (Atropine 1% (Oral/Sl)*) 2 drop SL Q2H PRN PRN Reason: secretion Last Admin: 12/27/18 13:33 Dose: 2 drop Bisacodyl (Dulcolax Supp*) 10 mg IA DAILY PRN PRN Reason: CONSTIPATION Last Admin: 12/24/18 18:02 Dose: 10 mg Dexamethasone Sodium Phosphate (Decadron Iv*) 4 mg IV SLOW PU Q8HR [facility] Last Admin: 12/27/18 13:33 Dose: 4 mg Fentanyl (Duragesic Patch 12 Mcg/Hr *) 12 mcg TRANSDERM Q72H [facility]ADI Last Admin: 12/24/18 18:00 Dose: 12 mcg Hydralazine HCl (Apresoline Iv*) 5 mg IV SLOW PU Q6H PRN PRN Reason: SBP>180 Last Admin: 12/23/18 00:08 Dose: 5 mg Lorazepam (Ativan Inj*) 0.5 mg IV PUSH Q4H PRN PRN Reason: ANXIETY Last Admin: 12/26/18 23:11 Dose: 0.5 mg Miscellaneous (Ativan Pyxis Thakur) 1 ea N/A .ATIVAN IV THAKUR PRN PRN Reason: PYXIS THAKUR Morphine Sulfate (Morphine Oral Concentrate*) 6 mg SL Q2H PRN PRN Reason: PAIN - MODERATE Last Admin: 12/27/18 13:33 Dose: 6 mg Pharmacy Profile Note (Fentanyl Patch Check Q Shift) 1 note N/A 0700,1900 [facility] Last Admin: 12/27/18 06:03 Dose: 1 note Senna (Senokot 8.6 Mg Tab*) 1 tab PO BEDTIME PRN PRN Reason: CONSTIPATION Vital Signs - 8 hr 12/27/18 12/27/18 12/27/18 08:50 10:48 12:20 Respiratory 13 14 10 Rate 12/27/18 12/27/18 13:33 15:15 Respiratory 12 9 Rate Oxygen Devices in Use Now: Nasal Cannula Exam: Appearance: Resting peacefully, jaundice looking, not in acute distress Result Diagrams: 12/22/18 05:15 12/22/18 05:15 Microbiology and Other Data: Assess/Plan/Problems-Billing Assessment: PARTNER 88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 Currently actively in dying process. - Patient Problems (1) Metastatic cancer to bone Current Visit: Yes Status: Acute Code(s): C79.51 - SECONDARY MALIGNANT NEOPLASM OF BONE SNOMED Code(s): 42174636 Comment: -Likely primary breast though did not purse more scan 2/ to family wishes -SPEP neg, numerous lytic lesions and pathologic fractures -Pain control bisphosphanates (started calcitonin, x1 dose zolendric acid today- should be a one time dose), decadron, SL morphine, Fent patch q 72 hours (2) Hypercalcemia Current Visit: Yes Status: Acute Code(s): E83.52 - HYPERCALCEMIA SNOMED Code(s): 74761558 Comment: -Of malignancy, SPEP neg -Bone scan showed multiple lytic lesions (3) Acute kidney injury Current Visit: Yes Status: Acute Code(s): N17.9 - ACUTE KIDNEY FAILURE, UNSPECIFIED SNOMED Code(s): 18290986 Comment: -dehydration (4) Dementia Current Visit: Yes Status: Acute Code(s): F03.90 - UNSPECIFIED DEMENTIA WITHOUT BEHAVIORAL DISTURBANCE SNOMED Code(s): 53337402 Comment: -has dementia at baseline (5) Heart failure with preserved ejection fraction Current Visit: Yes Status: Acute Code(s): I50.30 - UNSPECIFIED DIASTOLIC ( CONGESTIVE) HEART FAILURE SNOMED Code(s): 892549495 Comment: -elevated BNP; ECG shows t inversion in V1 and III -Echo shows EF of 65-70% with diastolic dysfxn, severe LA dilation with Mild MR and -comfort care only (6) Hypernatremia Current Visit: Yes Status: Acute Code(s): E87.0 - HYPEROSMOLALITY AND HYPERNATREMIA SNOMED Code(s): 720398086 Comment: -Contributing to AMS from [facility]WD (7) DNR (do not resuscitate) Current Visit: Yes Status: Acute (8) DVT prophylaxis Current Visit: Yes Status: Acute Code(s): Z29.9 - ENCOUNTER FOR PROPHYLACTIC MEASURES, UNSPECIFIED SNOMED Code(s): 438390176 Comment: -none Status and Disposition: Comfort measures only patient in actively dying process Hospice placement will be ready on Wed Attestation Documenting Resident: Hyacinth Del Angel Supervising Physician: Derrick Mina Attending/Supervising Physician Comment: [facility] going [facility]. Sent Rx for atropine drops, MSIR liquid, ativan liquid, Fentanyl patch to [facility]. Attestation: This service has been performed in part by a resident under the direction of a teaching physician.I, Derrick Mina, performed the service, or was physically present during the critical, or thakur portions of the service, furnished by the resident. I participated in the management of the patient.
[2018-12-27] MEDS: fentaNYL PATCH 12 MCG/HR TRANSDERM SCH (16:43)
[2018-12-28] MEDS: Morphine ORAL CONCENTRATE* 5 MG/0.25 ML ORAL.SYRIN SL PRN ×2 (03:08→05:43)
[2018-12-28] MEDS: Dexamethasone IV* 4 MG/ML 1 ML (4 MG) IV SLOW PU SCH (05:35)
[2018-12-28] MEDS: fentaNYL Patch Check Q Shift 1 NOTE SCH (06:43)
--- NOTE | 2018-12-28 09:28 | PN ---
Hospitalist Progress Note Date of Service: 12/28/18 Note Called to see patient by nurses, Patient was not responsive. Vital signs undetected. Physical examination: Pupils dilated, not reactive Carotid pulse not palpable No heart sound, no apical pulse No lung sound Pronounced at 9:20am 12/28/2018. Informed patient's son Burt Coyle, condolence conveyed. Autopsy not desired. Nurses to call organ donation hotline.
--- NOTE | 2018-12-28 18:41 | DS ---
CC: Dr. Bailon at [place] * SUMMARY: DATE OF ADMISSION: 12/20/18 DATE OF : 12/28/18 PRIMARY DIAGNOSIS: Metastatic cancer throughout the skeleton presumed to be breast cancer. SECONDARY DIAGNOSES: 1. Breast cancer, status post mastectomy and chemotherapy in year 1999. 2. Pathological fractures of ribs and vertebral bodies. 3. Hypercalcemia. 4. Sleep apnea. 5. Depression. 6. Obesity. 7. Fibromyalgia. 8. Headaches. HOSPITAL COURSE: An 88-year-old woman with history of breast cancer, who presented to the emergency department from [facility] where she has had a 2- month decline in her functional status and worsening confusion. The patient's initial calcium was 15.2 with an ionized calcium of 1.79 and elevated creatinine of 1.95. The patient was treated acutely with saline diuresis and was also treated with Miacalcin injection and zoledronic acid infusion x1. The patient's calcium level fell from 15.2 to 12.1 and 11.3 on the first 2 days of admission. Her creatinine also improved to 1.7. The patient had a bone survey that showed diffuse osteolytic lesions throughout the skeleton with multiple rib fractures and vertebral compression fractures and metastatic disease in the calvarium, humeri, right forearm, pelvis and femurs consistent with a neoplastic process such as metastatic disease or multiple myeloma. The patient did have an assessment for myeloma with a serum-protein electrophoresis which showed no monoclonal spike. Because of the patient's history of breast cancer in the distant past, it was felt that the patient had most likely recurrence of breast cancer. Other laboratory tests included potassium of 3.1 on 12/22/18 and magnesium of 2.2. Her initial troponins were 0.04 on 3 occasions. Her PTH was 17.2 which was inappropriately high for her calcium, but this was taken 2 days after admission. The patient's family was contacted. The patient's son is a healthcare proxy and [id number] according to [facility] records. There was also a healthcare ocular care technician, Fabiana Renteria involved. Consultation with Dr. Hicks of Palliative Care was obtained and she talked to the son and the brusher. Goals of care were quite clear and the plan was for the patient to go to hospice. No biopsy to determine exactly what the cause of the skeletal metastasis was planned. The patient was accepted to the hospice residence, but on 12/28/18, the patient in the morning was found to be apneic with an apical pulse. The patient was do not resuscitate of course. Time of was 9:20 a.m. Family is aware and arrangements will be made for a . [place] [facility] [place]. CONDITION: . TIME SPENT: I spent more than 35 minutes on the day of discharge with the patient and completing necessary paperwork. [id number]/CPS #: [id number] YOMI
== END 2018-12-28 09:20 | disposition expired | DRG 543 ==
LOC: ED 13:48 → MEDTELE 17:14
PROVIDERS: ADMIT Internal Medicine; ATTEND Internal Medicine
DX: C79.51 Secondary malignant neoplasm of bone (principal); N17.9 Acute kidney failure, unspecified; I50.30 Unspecified diastolic (congestive) heart failure; E87.0 Hyperosmolality and hypernatremia; E83.52 Hypercalcemia; Z88.0 Allergy status to penicillin; E78.00 Pure hypercholesterolemia, unspecified; I10 Essential (primary) hypertension; G47.33 Obstructive sleep apnea (adult) (pediatric); M79.7 Fibromyalgia; M17.0 Bilateral primary osteoarthritis of knee; M19.042 Primary osteoarthritis, left hand; M19.041 Primary osteoarthritis, right hand; M19.072 Primary osteoarthritis, left ankle and foot; M19.071 Primary osteoarthritis, right ankle and foot; M75.02 Adhesive capsulitis of left shoulder; F41.9 Anxiety disorder, unspecified; Z85.3 Personal history of malignant neoplasm of breast; Z92.21 Personal history of antineoplastic chemotherapy; Z90.11 Acquired absence of right breast and nipple; F32.9 Major depressive disorder, single episode, unspecified; E66.9 Obesity, unspecified; Z68.30 Body mass index [BMI] 30.0-30.9, adult; R79.89 Other specified abnormal findings of blood chemistry; Z66 Do not resuscitate; F03.90 Unspecified dementia, unspecified severity, without behavioral disturbance, psychotic disturbance, mood disturbance, and anxiety; I08.0 Rheumatic disorders of both mitral and aortic valves
CPT/HCPCS: 36415; 71045; 77075; 80048; 80053; 80061; 81003; 82306; 82330; 82397; 83735; 83880; 83883; 83970; 84100; 84155; 84156; 84165; 84166; 84443; 84484; 85025; 85610; 85730; 87040; 93005; 93306; 99284; A9270-GY; J0360; J0630; J1100; J1650; J2060; J2270; J3489